=== PATIENT | female | born 1965 | race Caucasian/White ===

== ENCOUNTER → 2017-09-03 | Outpatient (CLI) | payer OTHER ==
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
--- NOTE | 2017-09-05 07:01 | MM ---
Reason for exam: screening (asymptomatic). Last mammogram was performed 1 year and 1 month ago. History: Family history of breast cancer in maternal grandmother and breast cancer in maternal aunt. Physical Findings: A clinical breast exam by your physician is recommended on an annual basis and results should be correlated with mammographic findings. MG 3D Screening Mammo W/Cad Bilateral CC and MLO view(s) were taken. Prior study comparison: August 07, 2016, bilateral MG 3d screening mammo w/cad. May 21, 2015, bilateral foundation screening mammo. The breast tissue is heterogeneously dense. This may lower the sensitivity of mammography. No suspicious abnormality. No significant changes when compared with prior studies. ASSESSMENT: Negative, BI-RAD 1 RECOMMENDATION: Routine screening mammogram of both breasts in 1 year.
== END | disposition home or self-care (01) ==
LOC: RADMAMWWP 13:29
PROVIDERS: ATTEND Family Medicine
DX: Z12.31 Encounter for screening mammogram for malignant neoplasm of breast (principal); Z13.820 Encounter for screening for osteoporosis
CPT/HCPCS: 77063; 77067; 77080

== ENCOUNTER → 2019-02-18 | Outpatient (CLI) | payer OTHER ==
--- NOTE | 2019-02-18 21:42 | CONS ---
CONSULTATION REASON FOR CONSULTATION: Sleep apnea. This is a 53-year-old female patient coming in for sleep apnea evaluation. This patient has been diagnosed having fibromyalgia, and the patient has been treated for that for almost a year. She is on a combination of gabapentin and Cymbalta. She also takes a combination of tramadol and baclofen. She tries to take baclofen at nighttime in addition to the tramadol. As for the gabapentin, she takes it 3 times a day. She has acid reflux. Over the past year or so the patient has been having also sleep fragmentation and frequent nocturnal arousals, chronic hypersomnia and tiredness. She goes to bed around 9 p.m., wakes up at 6 a.m. in the morning. Her sleep is fragmented. Her current [place] score is 5. Her weight is stable. She has been told also that she snores. As such, this raised the suspicion for obstructive sleep apnea. Note that the patient is extremely claustrophobic; treatment of sleep apnea may be complicated by this problem if the diagnosis is made. PAST MEDICAL HISTORY: 1. Fibromyalgia. 2. Acid reflux. PAST SURGICAL HISTORY: Past surgical history includes: 1. Cholecystectomy. 2. Right hand and forearm surgery following an injury. DRUG ALLERGIES: 1. CODEINE. That causes a rash. 2. PENICILLINS. OUTPATIENT MEDICATION: Outpatient medication includes: 1. Gabapentin 300 mg 3 times a day. 2. Omeprazole 20 mg p.o. daily. 3. Cymbalta 60 mg p.o. daily. 4. Tramadol 50 mg twice a day. 5. Baclofen 10 mg t.i.d. SOCIAL HISTORY: The patient is a nonsmoker. No history of alcoholism. No history of IV drugs. Her brother has obstructive sleep apnea. REVIEW OF SYSTEMS: Fourteen-point review of systems was done. Positive findings are all mentioned above in the history of present illness. She has occasional grinding of the teeth. She is extremely claustrophobic and she has anxiety and panic attacks. She is also restless in her lower extremities. She also occasionally jerks and kicks. No typical symptoms of RLS syndrome. She is anxious. She is irritable. She has problems with concentration and memory. She has no recent weight gain. No sleep paralysis. No hallucinations. No cataplexy at this point in time. PHYSICAL EXAMINATION: VITAL SIGNS: BP is 148/84, pulse 82, respirations 16, temperature 98.1, saturation 98% on room air. Height is 5 feet 5 inches, weight 206, BMI 34.2. Neck size 15 inches. [place] score is 5. GENERAL APPEARANCE: Calm, comfortable. HEAD: Atraumatic, normocephalic. NECK: Supple. No JVD. No goiter or neck masses. LUNGS: Diminished; otherwise clear. HEART: Heart sounds are regular rate and rhythm. Normal S1, S2. No S3, S4. No murmurs. ABDOMEN: Soft. No organomegaly. EXTREMITIES: No edema. No cyanosis or clubbing. SKIN: No evidence of any wounds or ulcerations. IMPRESSION: 1. Chronic hypersomnia, under investigation. Obviously the patient has issues with chronic fibromyalgia, and she is on a combination of medication to improve her pain and sleep quality. Consider underlying obstructive sleep apnea. For that reason, a polysomnogram will be ordered. 2. Fibromyalgia. 3. Acid reflux. PLAN: 1. Proceed with polysomnogram. 2. Continue the same medications for now. 3. Encourage weight loss. 4. Will continue to follow and make further recommendations based on the PSG findings. MMODL / IJN: [id number] /
== END | disposition home or self-care (01) ==
LOC: SLEEP 16:01
PROVIDERS: ATTEND Internal Medicine Critical Care Medicine
DX: G47.10 Hypersomnia, unspecified (principal); M79.7 Fibromyalgia; K21.9 Gastro-esophageal reflux disease without esophagitis; Z88.0 Allergy status to penicillin; Z88.5 Allergy status to narcotic agent; Z79.891 Long term (current) use of opiate analgesic; Z79.899 Other long term (current) drug therapy
CPT/HCPCS: 99211

== ENCOUNTER → 2021-03-04 | Outpatient (CLI) | payer OTHER ==
--- NOTE | 2021-03-08 08:24 | MM ---
Reason for exam: screening (asymptomatic). Last mammogram was performed 3 years and 6 months ago. History: Family history of breast cancer in maternal grandmother and breast cancer in maternal aunt. Physical Findings: A clinical breast exam by your physician is recommended on an annual basis and results should be correlated with mammographic findings. MG Screening Mammo w CAD Bilateral CC and MLO view(s) were taken. Prior study comparison: September 03, 2017, bilateral MG 3d screening mammo w/cad. August 07, 2016, bilateral MG 3d screening mammo w/cad. The breast tissue is heterogeneously dense. This may lower the sensitivity of mammography. ASSESSMENT: Negative, BI-RAD 1 RECOMMENDATION: Routine screening mammogram of both breasts in 1 year.
== END | disposition home or self-care (01) ==
LOC: RADMAMWWP 15:57
PROVIDERS: ATTEND Family Medicine
DX: Z12.31 Encounter for screening mammogram for malignant neoplasm of breast (principal); Z80.3 Family history of malignant neoplasm of breast
CPT/HCPCS: 77067

== ENCOUNTER 2021-05-24 17:39 | Inpatient (IN) | payer OTHER ==
--- NOTE | 2021-05-24 18:25 | ED ---
SOB HPI - General Chief Complaint: Shortness of Breath Stated Complaint: Covid+, SOB Time Seen by Provider: 05/24/21 17:55 Source: patient, EMS Mode of arrival: EMS Limitations: no limitations - History of Present Illness Initial Comments: 55-year-old female past medical history of asthma who presents to the emergency department with reported shortness of breath, nausea and vomiting. Patient began having symptoms on Sunday. She states that she went to Dr. Antony's office and was tested for Covid. She was found to be positive. He did place her on a Medrol dose pack and antibiotics for her sinus infection. Over the course of the week she has had worsening shortness of breath, nausea and vomiting. Does have a history of asthma however states that it is mild and intermittent. She does not follow the credit historian. Symptoms became so severe today that she called and EMS. When they arrived they found the patient to have oxygen saturation of 81%. She does arrive on 6 L. She denies chest pain. No lower extremity swelling. No fevers. Patient is not vaccinated. No other alleviating, precipitating or modifying factors - Related Data Home Medications Medication Instructions Recorded Confirmed Ascorbic Acid [Vitamin C] 1,000 mg PO DAILY 05/24/21 05/24/21 Baclofen 10 mg PO TID 05/24/21 05/24/21 Butalbital/Aspirin/Caffeine 1 - 2 cap PO Q6H PRN 05/24/21 05/24/21 [Ezsmrcuioc-KKV-Hpukesry Cap 50-325-40] Cholecalciferol [Vitamin D3 (25 25 mcg PO DAILY 05/24/21 05/24/21 Mcg = 1000 Iu)] DULoxetine HCL [Cymbalta] 60 mg PO DAILY 05/24/21 05/24/21 Fluticasone Nasal [place] [Flonase 1 spray EA NOSTRIL DAILY PRN 05/24/21 05/24/21 Nasal [place]] Gabapentin [Neurontin] 300 mg PO TID 05/24/21 05/24/21 Magnesium 250 mg PO DAILY 05/24/21 05/24/21 Mometasone/Formoterol [Dulera 100 2 puff PO RT-DAILY 05/24/21 05/24/21 Mcg-5 Mcg Inhaler] Norethindrone [Marielena] 0.35 mg PO DAILY 05/24/21 05/24/21 Omeprazole 40 mg PO DAILY 05/24/21 05/24/21 Ondansetron [Zofran] 4 mg PO TID PRN 05/24/21 05/24/21 Zinc 50 mg PO DAILY 05/24/21 05/24/21 Zolpidem Tartrate [Ambien] 10 mg PO HS PRN 05/24/21 05/24/21 rOPINIRole HCL [Requip] 1 mg PO BID 05/24/21 05/24/21 traMADol HCL 100 mg PO BID PRN 05/24/21 05/24/21 Allergies Allergy/AdvReac Type Severity Reaction Status Date / Time codeine AdvReac Rash/Hives Verified 05/24/21 18:44 Penicillins AdvReac Rash/Hives Verified 05/24/21 18:44 Review of Systems ROS Statement: Those systems with pertinent positive or pertinent negative responses have been documented in the HPI. ROS Other: All systems not noted in ROS Statement are negative. Past Medical History Past Medical History: Asthma Additional Past Medical History / Comment(s): COVID 2020 History of Any Multi-Drug Resistant Organisms: None Reported Past Surgical History: Cholecystectomy Past Psychological History: No Psychological Hx Reported Smoking Status: Never smoker Past Alcohol Use History: None Reported Past Drug Use History: None Reported General Exam Limitations: no limitations General appearance: alert, in distress Head exam: Present: atraumatic, normocephalic, normal inspection Eye exam: Present: normal appearance, PERRL, EOMI. Absent: scleral icterus, conjunctival injection, periorbital swelling ENT exam: Present: normal exam, mucous membranes moist Neck exam: Present: normal inspection. Absent: tenderness, meningismus, lymphadenopathy Respiratory exam: Present: respiratory distress, accessory muscle use, decreased breath sounds. Absent: wheezes, rales, rhonchi, stridor Cardiovascular Exam: Present: normal rhythm, tachycardia, normal heart sounds. Absent: systolic murmur, diastolic murmur, rubs, gallop, clicks GI/Abdominal exam: Present: soft, normal bowel sounds. Absent: distended, tenderness, guarding, rebound, rigid Extremities exam: Present: normal inspection, full ROM, normal capillary refill. Absent: tenderness, pedal edema, joint swelling, calf tenderness Back exam: Present: normal inspection Neurological exam: Present: alert, oriented X3, CN II-XII intact Psychiatric exam: Present: normal affect, normal mood Skin exam: Present: warm, dry, intact, normal color. Absent: rash Course Vital Signs 05/24/21 05/24/21 05/24/21 17:52 17:55 17:56 Temperature 97.9 F Pulse Rate 112 H Respiratory 26 H 26 H Rate Blood Pressure 134/96 O2 Sat by Pulse 81 L 93 L Oximetry 05/24/21 05/24/21 05/24/21 19:02 19:33 20:21 Temperature Pulse Rate 112 H 108 H 118 H Respiratory 26 H 22 28 H Rate Blood Pressure 129/92 143/90 145/92 O2 Sat by Pulse 93 L 95 91 L Oximetry 05/24/21 05/24/21 05/24/21 20:44 22:00 22:55 Temperature Pulse Rate 111 H Respiratory 20 Rate Blood Pressure O2 Sat by Pulse 98 93 L 94 L Oximetry 05/25/21 05/25/21 05/25/21 01:00 06:00 07:55 Temperature 97.4 F L Pulse Rate 99 93 105 H Respiratory 22 22 22 Rate Blood Pressure 114/81 133/82 151/97 O2 Sat by Pulse 94 L 95 95 Oximetry 05/25/21 05/25/21 05/25/21 07:58 08:00 09:03 Temperature Pulse Rate 99 127 H Respiratory 22 24 Rate Blood Pressure 159/98 O2 Sat by Pulse 92 L 95 95 Oximetry 05/25/21 05/25/21 05/25/21 09:44 10:00 11:00 Temperature Pulse Rate 137 H 128 H 115 H Respiratory 26 H 24 24 Rate Blood Pressure O2 Sat by Pulse 91 L 98 95 Oximetry 05/25/21 05/25/21 05/25/21 12:00 13:19 14:00 Temperature Pulse Rate 122 H 121 H 110 H Respiratory 24 26 H 24 Rate Blood Pressure 134/93 141/92 143/103 O2 Sat by Pulse 95 94 L 95 Oximetry 05/25/21 05/25/21 05/25/21 15:00 16:00 17:00 Temperature 97.6 F Pulse Rate 112 H 121 H 118 H Respiratory 26 H 24 24 Rate Blood Pressure 154/104 137/101 144/101 O2 Sat by Pulse 96 95 95 Oximetry 10/06/21 10/06/21 18:00 19:00 Temperature Pulse Rate 111 H 111 H Respiratory 24 24 Rate Blood Pressure 146/99 O2 Sat by Pulse 98 98 Oximetry Medical Decision Making - Medical Decision Making Upon arrival patient is placed into trauma 4. Thorough history and physical exam was performed. Patient is originally on 6 L of oxygen. We will attempt to titrate the patient's oxygen down to 4 L however she does desat into the 80s. IV is established. Laboratory studies are conducted. D-dimer 0.84. LDH 2163. Chest x-ray demonstrates low lung volumes with diffuse reticular patchy opacities. Chest CT is performed which demonstrates no central lobar segmental pulmonary embolus. The patient is given a dose of Decadron and remdesmivir. Recommended admission due to her hypoxia. Patient agreed to this. Spoke with Eric from [facility] who agree to admit the patient. She currently awaiting a bed on the floor - Lab Data Result diagrams: 05/27/21 04:33 05/27/21 04:33 Lab Results 05/24/21 Range/Units 19:17 D-Dimer 0.84 H (<0.60) mg/L FEU - EKG Data EKG Comments: EKG demonstrates sinus tachycardia with a ventricular rate of 110. A 122. QRS 82. QTC 449. No acute ST segment elevations or depressions Disposition Clinical Impression: Hypoxia, COVID-19 Disposition: ADMITTED IP TO THIS HOSP Condition: Stable Is patient prescribed a controlled substance at d/c from ED?: No Decision to Admit Reason: Admit from EC Decision Date: 05/24/21 Decision Time: 20:26
[2021-05-24 18:43] LABS: Basophils # (A) 0.1 k/uL (0-0.2); Basophils % (A) 1 %; Eosinophils % (A) 0 %; HCT 44.9 % (34.0-46.0); Lymphocytes # (A) 0.8 k/uL (1.0-4.8); Lymphocytes % (A) 13 %; MCH 29.4 pg (25.0-35.0); MCHC 33.4 g/dL (31.0-37.0); MCV 88.1 fL (80.0-100.0); Mean Platelet Volume 7.5; Monocytes # (A) 0.2 k/uL (0-1.0); Monocytes % (A) 3 %; Neutrophils % (A) 81 %; Platelet Count 407 k/uL (150-450); RDW 13.7 % (11.5-15.5); WBC 6.2 k/uL (3.8-10.6)
[2021-05-24 18:51] LABS: INR 0.9 (<1.2); Partial Thromboplastin Time 24.7 sec (22.0-30.0)
--- NOTE | 2021-05-24 18:54 | XR ---
EXAMINATION TYPE: XR chest 1V portable DATE OF EXAM: 05/24/2021 COMPARISON: NONE HISTORY: Shortness of breath TECHNIQUE: Single frontal view of the chest is obtained. FINDINGS: The cardiomediastinal silhouette and pulmonary vasculature is within normal limits. Low lung volumes with diffuse, reticular and patchy opacity bilaterally. IMPRESSION: Low lung volumes with diffuse, reticular and patchy opacity bilaterally.
[2021-05-24 18:56] LABS: ALT 159 U/L (4-34); AST 174 U/L (14-36); African American GFR (CKD) >90 (>60 ml/min/1.73 sqM); Albumin 3.3 g/dL (3.5-5.0); Alkaline Phosphatase 229 U/L (38-126); Anion Gap 9 mmol/L; Blood Urea Nitrogen 13 mg/dL (7-17); Carbon Dioxide 27 mmol/L (22-30); Chloride 98 mmol/L (98-107); Glucose 120 mg/dL (74-99); Non-African American GFR(CKD) >90 (>60 ml/min/1.73 sqM); Potassium 4.7 mmol/L (3.5-5.1); Sodium 134 mmol/L (137-145); Total Bilirubin 0.8 mg/dL (0.2-1.3); Total Protein 6.7 g/dL (6.3-8.2)
[2021-05-24 19:08] LABS: C Reactive Protein 13.9 mg/dL (<1.0); LDH 2163 U/L (313-618)
[2021-05-24] MEDS: DEXAMETHASONE SOD PHOSPHATE 10 MG/ML 1 ML VIAL IV SCH (20:13)
[2021-05-24] MEDS ORDERED: ACETAMINOPHEN TAB 325 MG TAB PO PRN (20:27)
[2021-05-24] MEDS ORDERED: NALOXONE 0.4 MG/ML 1 ML VIAL IV PRN (20:27)
[2021-05-24] MEDS ORDERED: REMDESIVIR 200 MG in SODIUM CHLORIDE 0.9% 250 ML IVPB ONE (21:00)
[2021-05-24] MEDS ORDERED: ONDANSETRON 4 MG/2 ML VIAL IVP STA (21:12)
--- NOTE | 2021-05-24 21:45 | CT ---
EXAMINATION TYPE: CT chest angio for PE DATE OF EXAM: 05/24/2021 COMPARISON: Radiograph 05/24/2021 HISTORY: SOB, + covid CT DLP: 465.5 mGycm Automated exposure control for dose reduction was used. CONTRAST: CT Chest for pulmonary embolism performed with with IV Contrast, patient injected with 80cc mL of Iso kelly 370. FINDINGS: LUNGS: There is diffuse groundglass reticular opacity throughout the lungs that appears consolidative dependently. No large effusion or pneumothorax. The central airways are patent. MEDIASTINUM: There is satisfactory enhancement of the pulmonary artery and its proximal branches, the re is no CT evidence for pulmonary embolism. The subsegmental vessels are suboptimally evaluated due to artifact. There are no greater than 1 cm hilar or mediastinal lymph nodes. No pericardial effus ion is seen. There is a moderate hiatal hernia. OTHER: Hypoattenuating liver suggesting steatosis. IMPRESSION: 1. No Central, lobar or segmental pulmonary embolus. Limited assessment of the subsegmental vessels due to artifact. 2. Diffuse bilateral airspace disease. No pneumothorax or effusion.
[2021-05-24] MEDS ORDERED: FLUTICASONE 50MCG/SPRAY NASAL 16GM EA NOSTRIL PRN (22:42)
[2021-05-25 06:45] LABS: ALT 183 U/L (4-34); AST 186 U/L (14-36); African American GFR (CKD) >90 (>60 ml/min/1.73 sqM); Albumin 3.6 g/dL (3.5-5.0); Albumin/Globulin Ratio 0.9; Alkaline Phosphatase 263 U/L (38-126); Anion Gap 15 mmol/L; Blood Urea Nitrogen 15 mg/dL (7-17); Calcium 9.5 mg/dL (8.4-10.2); Carbon Dioxide 19 mmol/L (22-30); Chloride 102 mmol/L (98-107); Globulin 3.8 g/dL; Glucose 161 mg/dL (74-99); Non-African American GFR(CKD) >90 (>60 ml/min/1.73 sqM); Potassium 5.3 mmol/L (3.5-5.1); Sodium 136 mmol/L (137-145); Total Protein 7.4 g/dL (6.3-8.2)
[2021-05-25] MEDS: traMADol 50 MG TAB PO PRN ×2 (07:07→22:45)
[2021-05-25] MEDS: NON FORMULARY DRUG (Norethindrone [Camila] 0.35 MG Tablet) PO SCH (07:52)
[2021-05-25] MEDS: SYMBICORT 80-4.5 MCG INHALER INHALATION SCH ×2 (07:58→20:00)
[2021-05-25] MEDS: MAGNESIUM OXIDE 400 MG TAB PO SCH (08:08)
[2021-05-25] MEDS: BACLOFEN 10 MG TAB PO SCH ×3 (08:08→21:01)
[2021-05-25] MEDS: PANTOPRAZOLE 40 MG TABLET PO SCH (08:08)
[2021-05-25] MEDS: ZINC SULFATE 220 MG CAP PO SCH (08:08)
[2021-05-25] MEDS: CHOLECALCIFEROL 25 MCG (1000 IU) TABLET PO SCH (08:08)
[2021-05-25] MEDS: DULoxetine HCL 60 MG CAPSULE.DR PO SCH (08:09)
[2021-05-25] MEDS: ASCORBIC ACID 500 MG TAB PO SCH (08:09)
[2021-05-25] MEDS: GABAPENTIN 300 MG CAP PO SCH ×3 (08:09→21:01)
[2021-05-25] MEDS: DEXAMETHASONE SOD PHOSPHATE 10 MG/ML 1 ML VIAL IV SCH (08:09)
[2021-05-25] MEDS: BARICITINIB 2 MG TABLET PO SCH (10:24)
[2021-05-25 10:53] LABS: Basophils # (M) 0 X 10*3/uL (0.00-0.10); Eosinophils # (M) 0 X 10*3/uL (0.04-0.35); HGB 16.2 g/dL (12.0-15.0); Lymphocytes # (M) 0.25 X 10*3/uL (0.90-5.00); MCH 29.1 pg (27.0-32.0); MCHC 33.1 g/dL (32.0-37.0); MCV 88.1 fL (80.0-97.0); Mean Platelet Volume 9.9 fL (9.5-12.2); Metamyelocytes % 4 % (0-0); Myelocytes % 4 % (0-0); Neutrophils # (M) 4.08 X 10*3/uL (2.00-8.90); Neutrophils % (M) 83 %; Platelet Count 464 X 10*3/uL (140-440); RBC 5.56 X 10*6/uL (4.10-5.20); RDW 13.8 % (11.5-14.5); WBC 4.91 X 10*3/uL (4.50-10.00)
[2021-05-25 11:02] LABS: ABG Base Excess 0.9 mmol/L; ABG HCO3 24 mmol/L (21-25); ABG Oxygen Saturation 99.2 % (94-97); ABG PCO2 28 mmHg (35-45); ABG PH 7.54 (7.35-7.45); ABG PO2 135 mmHg (83-108); ABG TCO2 24 mmol/L (19-24)
--- NOTE | 2021-05-25 11:15 | P.CNPUL ---
History of Present Illness Consult date: 05/25/21 Requesting physician: Bushra Hdez Reason for consult: dyspnea, hypoxemia, abnormal CXR/CT Chief complaint: Shortness of breath History of present illness: This is a 55-year-old female patient with a history of fibromyalgia, gastroesophageal reflux disease, chronic bronchial asthma. She follows with Dr. Antony as her primary care provider. On 05/16/2021 she developed symptoms of increasing shortness of breath, cough congestion, vomiting. She was seen by her PCP and tested positive for COVID-19. She was initiated on a Medrol Dosepak and antibiotics for complaints of possible sinus infection as well. Her symptoms progressed she became more short of breath. She came in by EMS to the emergency room yesterday. Her initial O2 saturation was 81%. She was placed on 6 L of oxygen at that time. Chest x-ray showed low lung volumes with diffuse reticular and patchy opacities bilaterally. CAT scan revealed diffuse bilateral airspace disease. No pneumothorax or effusions. No evidence of pulmonary embolism. White count 4.9. Hemoglobin 16.2. Platelets 464. Lymphocytes 0.25. D-dimer 0.84. Sodium 136. Potassium 5.3. Bicarb 19. Creatinine 0.61. AST 186. ALT 183. LDH 2163. C-reactive protein 13.9. She is seen today in consultation in the emergency room. Her symptoms have progressed. She is now requiring BiPAP support 14/6 and 100% FiO2. She is tachycardic 120s-130s. Respiratory rate 26. Currently afebrile. Review of Systems REVIEW OF SYSTEMS: CONSTITUTIONAL: Denies any recent significant weight loss or weight gain. EYES: Denies change in vision. EARS, NOSE, MOUTH, THROAT: Denies headaches, denies sore throat. CARDIOVASCULAR: Denies chest pain, palpitations or syncopal episodes. RESPIRATORY: Positive for shortness of breath, cough, congestion no hemoptysis. GASTROINTESTINAL: Positive for vomiting GENITOURINARY: Denies hematuria, denies infections. MUSKULOSKELETAL: Denies pain, denies swelling. INTEGUMENTARY: Denies rash, denies eczema. NEUROLOGICAL: Denies recent memory loss, no recent seizure activity. PSYCHIATRIC: Denies anxiety, denies depression. HEMATOLOGIC/LYMPHATIC: Denies anemia, denies enlarged lymph nodes. Past Medical History Past Medical History: Asthma Additional Past Medical History / Comment(s): COVID 2020 History of Any Multi-Drug Resistant Organisms: None Reported Past Surgical History: Cholecystectomy Past Psychological History: No Psychological Hx Reported Smoking Status: Never smoker Past Alcohol Use History: None Reported Past Drug Use History: None Reported Medications and Allergies Home Medications Medication Instructions Recorded Confirmed Type Ascorbic Acid [Vitamin C] 1,000 mg PO DAILY 05/24/21 05/24/21 History Baclofen 10 mg PO TID 05/24/21 05/24/21 History Butalbital/Aspirin/Caffeine 1 - 2 cap PO Q6H PRN 05/24/21 05/24/21 History [Nvdtdrsyvf-ALG-Nzxqetit Cap 50-325-40] Cholecalciferol [Vitamin D3 (25 25 mcg PO DAILY 05/24/21 05/24/21 History Mcg = 1000 Iu)] DULoxetine HCL [Cymbalta] 60 mg PO DAILY 05/24/21 05/24/21 History Fluticasone Nasal [place] [Flonase 1 spray EA NOSTRIL DAILY PRN 05/24/21 05/24/21 History Nasal [place]] Gabapentin [Neurontin] 300 mg PO TID 05/24/21 05/24/21 History Magnesium 250 mg PO DAILY 05/24/21 05/24/21 History Mometasone/Formoterol [Dulera 100 2 puff PO RT-DAILY 05/24/21 05/24/21 History Mcg-5 Mcg Inhaler] Norethindrone [Marielena] 0.35 mg PO DAILY 05/24/21 05/24/21 History Omeprazole 40 mg PO DAILY 05/24/21 05/24/21 History Ondansetron [Zofran] 4 mg PO TID PRN 05/24/21 05/24/21 History Zinc 50 mg PO DAILY 05/24/21 05/24/21 History Zolpidem Tartrate [Ambien] 10 mg PO HS PRN 05/24/21 05/24/21 History rOPINIRole HCL [Requip] 1 mg PO BID 05/24/21 05/24/21 History traMADol HCL 100 mg PO BID PRN 05/24/21 05/24/21 History Allergies Allergy/AdvReac Type Severity Reaction Status Date / Time codeine AdvReac Rash/Hives Verified 05/24/21 18:44 Penicillins AdvReac Rash/Hives Verified 05/24/21 18:44 Physical Exam Vitals: Vital Signs Temp Pulse Resp BP Pulse Ox 05/25/21 09:44 137 H 26 H 91 L 05/25/21 09:03 127 H 24 159/98 95 05/25/21 08:00 99 22 95 05/25/21 07:58 92 L 05/25/21 07:55 105 H 22 151/97 95 05/25/21 06:00 93 22 133/82 95 05/25/21 01:00 97.4 F L 99 22 114/81 94 L 05/24/21 22:55 94 L 05/24/21 22:00 111 H 20 93 L 05/24/21 20:44 98 05/24/21 20:21 118 H 28 H 145/92 91 L 05/24/21 19:33 108 H 22 143/90 95 05/24/21 19:02 112 H 26 H 129/92 93 L 05/24/21 17:56 93 L 05/24/21 17:55 26 H 05/24/21 17:52 97.9 F 112 H 26 H 134/96 81 L Intake and Output 05/24/21 05/25/21 05/25/21 22:59 06:59 14:59 Other: Weight 92.986 kg GENERAL EXAM: Alert, anxious 55-year-old female, on BiPAP 14/6 at 100% FiO2, and mild respiratory distress. HEAD: Normocephalic. EYES: Normal reaction of pupils, equal size. NOSE: Clear with pink turbinates. THROAT: No erythema or exudates. NECK: No masses, no JVD. CHEST: No chest wall deformity. LUNGS: Equal air entry with coarse crackles in the bilateral bases. CVS: S1 and S2 normal with no audible murmur, regular rhythm. ABDOMEN: No hepatosplenomegaly, normal bowel sounds, no guarding or rigidity. SPINE: No scoliosis or deformity SKIN: No rashes CENTRAL NERVOUS SYSTEM: No focal deficits, tone is normal in all 4 extremities. EXTREMITIES: There is no peripheral edema. No clubbing, no cyanosis. Peripheral pulses are intact. Results - Laboratory Findings CBC and BMP: 05/25/21 04:56 05/25/21 05:01 PT/INR, D-dimer PT 10.0 sec (9.0-12.0) 05/24/21 Unknown INR 0.9 (<1.2) 05/24/21 Unknown D-Dimer 0.84 mg/L FEU (<0.60) H 05/24/21 19:17 Abnormal lab findings: Abnormal Labs 05/24/21 05/24/21 05/24/21 19:17 Unknown Unknown RBC Hgb Hct Plt Count Plt Count Comment Metamyelocytes % Myelocytes % Lymphocytes # 0.8 L Lymphocytes # (Manual) Eosinophils # (Manual) D-Dimer 0.84 H Sodium 134 L Potassium Carbon Dioxide Glucose 120 H AST 174 H ALT 159 H Alkaline Phosphatase 229 H Lactate Dehydrogenase 2163 H C-Reactive Protein 13.9 H Albumin 3.3 L 05/25/21 05/25/21 04:56 05:01 RBC 5.56 H Hgb 16.2 H Hct 49.0 H Plt Count 464 H Plt Count Comment INCREASED A Metamyelocytes % 4 H Myelocytes % 4 H Lymphocytes # Lymphocytes # (Manual) 0.25 L Eosinophils # (Manual) 0 L D-Dimer Sodium 136 L Potassium 5.3 H Carbon Dioxide 19 L Glucose 161 H AST 186 H ALT 183 H Alkaline Phosphatase 263 H Lactate Dehydrogenase C-Reactive Protein Albumin - Diagnostic Findings Chest x-ray: image reviewed CT scan - chest: image reviewed Assessment and Plan Assessment: 1 Acute COVID-19 pneumonia. Unvaccinated. Given 1 dose of Remdesivir 05/24/2021 in the emergency room. 2 Acute hypoxemic respiratory failure secondary to above. Currently on BiPAP 14/6 and 100% FiO2. DC Remdesivir. Initiate Baricitinib. 3 Elevated inflammatory markers secondary to above 4 Mild transaminitis secondary to above 5 Fibromyalgia 6 Obesity 7 History of asthma 8 Gastroesophageal reflux disease Plan: The patient was seen and evaluated by Dr. Reagan Chest x-ray, CAT scans and labs reviewed On BiPAP 14/6 and 100 percent FiO2 Obtain ABGs, titrate the FiO2 as tolerated Change admission from regular medical floor to the intensive care unit Initiate Baricitinib, Decadron, Lovenox, vitamin supplements Request PICC line placement We will continue to follow and make further recommendations based on her clinical status I, the cosigning physician, performed a history & physical examination of the patient. Lungs sounds with coarse crackles in the bilateral bases. Maintaining good O2 saturations in the 90s on BiPAP 14/6 and 100%. I discussed the assessment and plan of care with my nurse practitioner, Emmy Chamberlain. I attest to the above consultation as dictated by her. Time with Patient: Greater than 30
--- NOTE | 2021-05-25 13:03 | P.HPIM ---
History of Present Illness Patient is a pleasant 60-year-old female came in with compensative shortness of breath be started about 10 days ago along with cough congestion and vomiting. Patient assessed is positive for COVID-19. Patient did not receive covid 19 patient is tachypneic on BiPAP at this time. Patient the d-dimer is around 0.84. Potassium is 5.3. Patient chest x-ray showing diffuse infiltrate computed tomography scan revealed diffuse bilateral air space disease. Patient is tachycardic with heart rate in 120s 130s. Denied any smoking history. Patient does have elevated liver enzymes. REVIEW OF SYSTEMS: CONSTITUTIONAL: As mentioned in HPI HEENT: No recent visual problems or hearing problems. Denied any sore throat. CARDIOVASCULAR: No chest pain, orthopnea, PND, no palpitations, no syncope. PULMONARY: No shortness of breath, no cough, no hemoptysis. GASTROINTESTINAL: No diarrhea, no nausea, no vomiting, no abdominal pain. NEUROLOGICAL: No headaches, no weakness, no numbness. HEMATOLOGICAL: Denies any bleeding or petechiae. GENITOURINARY: Denies any burning micturition, frequency, or urgency. MUSCULOSKELETAL/RHEUMATOLOGICAL: Denies any joint pain, swelling, or any muscle pain. ENDOCRINE: Denies any polyuria or polydipsia. The rest of the 14-point review of systems is negative. PHYSICAL EXAMINATION: GENERAL: The patient is alert and oriented x3, patient in significant respiratory distress. Well developed, well nourished. On BiPAP HEENT: Pupils are round and equally reacting to light. EOMI. No scleral icterus. No conjunctival pallor. Normocephalic, atraumatic. No pharyngeal erythema. No thyromegaly. CARDIOVASCULAR: S1 and S2 present. No murmurs, rubs, or gallops. PULMONARY: Chest is clear to auscultation, no wheezing or crackles. ABDOMEN: Soft, nontender, nondistended, normoactive bowel sounds. No palpable organomegaly. MUSCULOSKELETAL: No joint swelling or deformity. EXTREMITIES: No cyanosis, clubbing, or pedal edema. NEUROLOGICAL: Gross neurological examination did not reveal any focal deficits. SKIN: No rashes. Assessment and plan Acute hypoxic respiratory failure secondary to severe Covid 19 pneumonia. Patient received 1 dose of Remdesivir. Patient is being started on Barcitinib -Severe sepsis secondary to Covid 19 pneumonia with highly elevated inflammatory markers PE was ruled out -Transaminitis secondary to sepsis -Fibromyalgia -Obesity -Gastroesophageal reflux disease DVT prophylaxis: Patient is on Lovenox which will be continued Past Medical History Past Medical History: Asthma Additional Past Medical History / Comment(s): COVID 2020 History of Any Multi-Drug Resistant Organisms: None Reported Past Surgical History: Cholecystectomy Past Psychological History: No Psychological Hx Reported Smoking Status: Never smoker Past Alcohol Use History: None Reported Past Drug Use History: None Reported Medications and Allergies Home Medications Medication Instructions Recorded Confirmed Type Ascorbic Acid [Vitamin C] 1,000 mg PO DAILY 05/24/21 05/24/21 History Baclofen 10 mg PO TID 05/24/21 05/24/21 History Butalbital/Aspirin/Caffeine 1 - 2 cap PO Q6H PRN 05/24/21 05/24/21 History [[id number] Cap 50-325-40] Cholecalciferol [Vitamin D3 (25 25 mcg PO DAILY 05/24/21 05/24/21 History Mcg = 1000 Iu)] DULoxetine HCL [Cymbalta] 60 mg PO DAILY 05/24/21 05/24/21 History Fluticasone Nasal [place] [Flonase 1 spray EA NOSTRIL DAILY PRN 05/24/21 05/24/21 History Nasal [place]] Gabapentin [Neurontin] 300 mg PO TID 05/24/21 05/24/21 History Magnesium 250 mg PO DAILY 05/24/21 05/24/21 History Mometasone/Formoterol [Dulera 100 2 puff PO RT-DAILY 05/24/21 05/24/21 History Mcg-5 Mcg Inhaler] Norethindrone [Marielena] 0.35 mg PO DAILY 05/24/21 05/24/21 History Omeprazole 40 mg PO DAILY 05/24/21 05/24/21 History Ondansetron [Zofran] 4 mg PO TID PRN 05/24/21 05/24/21 History Zinc 50 mg PO DAILY 05/24/21 05/24/21 History Zolpidem Tartrate [Ambien] 10 mg PO HS PRN 05/24/21 05/24/21 History rOPINIRole HCL [Requip] 1 mg PO BID 05/24/21 05/24/21 History traMADol HCL 100 mg PO BID PRN 05/24/21 05/24/21 History Allergies Allergy/AdvReac Type Severity Reaction Status Date / Time codeine AdvReac Rash/Hives Verified 05/24/21 18:44 Penicillins AdvReac Rash/Hives Verified 05/24/21 18:44 Physical Exam Vitals: Vital Signs Temp Pulse Resp BP Pulse Ox 05/25/21 12:00 122 H 24 134/93 95 05/25/21 11:00 115 H 24 95 05/25/21 10:00 128 H 24 98 05/25/21 09:44 137 H 26 H 91 L 05/25/21 09:03 127 H 24 159/98 95 05/25/21 08:00 99 22 95 05/25/21 07:58 92 L 05/25/21 07:55 105 H 22 151/97 95 05/25/21 06:00 93 22 133/82 95 05/25/21 01:00 97.4 F L 99 22 114/81 94 L 05/24/21 22:55 94 L 05/24/21 22:00 111 H 20 93 L 05/24/21 20:44 98 05/24/21 20:21 118 H 28 H 145/92 91 L 05/24/21 19:33 108 H 22 143/90 95 05/24/21 19:02 112 H 26 H 129/92 93 L 05/24/21 17:56 93 L 05/24/21 17:55 26 H 05/24/21 17:52 97.9 F 112 H 26 H 134/96 81 L Intake and Output 05/24/21 05/25/21 05/25/21 22:59 06:59 14:59 Other: Weight 92.986 kg Results CBC & Chem 7: 05/25/21 04:56 05/25/21 05:01 Labs: Abnormal Lab Results - Last 24 Hours (Table) 05/24/21 05/24/21 05/24/21 Range/Units 19:17 Unknown Unknown RBC (4.10-5.20) X 10*6/uL Hgb (12.0-15.0) g/dL Hct (37.2-46.3) % Plt Count (140-440) X 10*3/uL Plt Count Comment Metamyelocytes % (0-0) % Myelocytes % (0-0) % Lymphocytes # 0.8 L (1.0-4.8) k/uL Lymphocytes # (Manual) (0.90-5.00) X 10*3/uL Eosinophils # (Manual) (0.04-0.35) X 10*3/uL D-Dimer 0.84 H (<0.60) mg/L FEU ABG pH (7.35-7.45) ABG pCO2 (35-45) mmHg ABG pO2 (83-108) mmHg ABG O2 Saturation (94-97) % Sodium 134 L (137-145) mmol/L Potassium (3.5-5.1) mmol/L Carbon Dioxide (22-30) mmol/L Glucose 120 H (74-99) mg/dL AST 174 H (14-36) U/L ALT 159 H (4-34) U/L Alkaline Phosphatase 229 H (38-126) U/L Lactate Dehydrogenase 2163 H (313-618) U/L C-Reactive Protein 13.9 H (<1.0) mg/dL Albumin 3.3 L (3.5-5.0) g/dL 05/25/21 05/25/21 05/25/21 Range/Units 04:56 05:01 10:33 RBC 5.56 H (4.10-5.20) X 10*6/uL Hgb 16.2 H (12.0-15.0) g/dL Hct 49.0 H (37.2-46.3) % Plt Count 464 H (140-440) X 10*3/uL Plt Count Comment INCREASED A Metamyelocytes % 4 H (0-0) % Myelocytes % 4 H (0-0) % Lymphocytes # (1.0-4.8) k/uL Lymphocytes # (Manual) 0.25 L (0.90-5.00) X 10*3/uL Eosinophils # (Manual) 0 L (0.04-0.35) X 10*3/uL D-Dimer 1.00 H (<0.60) mg/L FEU ABG pH (7.35-7.45) ABG pCO2 (35-45) mmHg ABG pO2 (83-108) mmHg ABG O2 Saturation (94-97) % Sodium 136 L (137-145) mmol/L Potassium 5.3 H (3.5-5.1) mmol/L Carbon Dioxide 19 L (22-30) mmol/L Glucose 161 H (74-99) mg/dL AST 186 H (14-36) U/L ALT 183 H (4-34) U/L Alkaline Phosphatase 263 H (38-126) U/L Lactate Dehydrogenase (313-618) U/L C-Reactive Protein (<1.0) mg/dL Albumin (3.5-5.0) g/dL 05/25/21 05/25/21 Range/Units 10:33 10:57 RBC (4.10-5.20) X 10*6/uL Hgb (12.0-15.0) g/dL Hct (37.2-46.3) % Plt Count (140-440) X 10*3/uL Plt Count Comment Metamyelocytes % (0-0) % Myelocytes % (0-0) % Lymphocytes # (1.0-4.8) k/uL Lymphocytes # (Manual) (0.90-5.00) X 10*3/uL Eosinophils # (Manual) (0.04-0.35) X 10*3/uL D-Dimer (<0.60) mg/L FEU ABG pH 7.54 H (7.35-7.45) ABG pCO2 28 L (35-45) mmHg ABG pO2 135 H (83-108) mmHg ABG O2 Saturation 99.2 H (94-97) % Sodium (137-145) mmol/L Potassium (3.5-5.1) mmol/L Carbon Dioxide (22-30) mmol/L Glucose (74-99) mg/dL AST (14-36) U/L ALT (4-34) U/L Alkaline Phosphatase (38-126) U/L Lactate Dehydrogenase (313-618) U/L C-Reactive Protein 8.7 H (<1.0) mg/dL Albumin (3.5-5.0) g/dL
[2021-05-25] MEDS: ENOXAPARIN 40 MG/0.4 ML SYRINGE SQ SCH (13:46)
[2021-05-25] MEDS ORDERED: LIDOCAINE 1% INJ 10MG/ML (20 ML MDV) SQ ONE (14:46)
--- NOTE | 2021-05-25 15:23 | XR ---
EXAMINATION TYPE: XR chest 1V portable DATE OF EXAM: 05/25/2021 COMPARISON: 05/24/2021 INDICATION: PICC line placement TECHNIQUE: Single frontal view of the chest is obtained. FINDINGS: The heart size is normal. The pulmonary vasculature is ,. Diffuse increased lung markings are present, present previously. There is placement of PICC line on the left, tip is in the region of the brachiocephalic vein. IMPRESSION: 1. Diffuse increased lung markings, stable from earlier exam. 2. PICC line placement with the tip reaching the region of the brachiocephalic vein.
--- NOTE | 2021-05-25 15:42 | IR ---
PICC LINE PLACEMENT: HISTORY: Infection requiring long-term antibiotic therapy PROCEDURE: Ultrasound guidance of PICC line placement. METAL MOULDER: COMPLICATIONS: None ANESTHESIA: 1. 1% Lidocaine locally. FINDINGS/TECHNIQUE: The procedure was explained to the patient. The risks, complications, benefits and alternatives were discussed and any questions were answered. Informed consent was obtained. The patient was placed supine on the fluoroscopic table and prepped and draped in the usual sterile fash ion. Utilizing a 21 gauge needle and sonographic guidance, access in the left basilic vein was achi eved and there is placement of a 0.018 guidewire. The vein is patent. A 5-F. sheath was placed over the guidewire. The guidewire and dilator were removed and a 5-F. Double lumen PICC line was placed through the sheath with the chest x-ray confirming the tip at the level of the SVC. The sheath was r emoved, the catheter was flushed and sutured into position. The patient was stable throughout the pr ocedure and remained stable upon discharge from the Department of Radiology. The vein puncture was patent under ultrasound. A parra scale image was obtained to document patency of the vein punctured. All elements of the maximal barrier technique were utilized. IMPRESSION: 1. Successful PICC line placement under ultrasound performed bedside.
[2021-05-25] MEDS ORDERED: ONDANSETRON 4 MG/2 ML VIAL IVP PRN (18:28)
[2021-05-25 20:13] LABS: Glucose,Whole Blood 164 mg/dL (75-99)
[2021-05-25] MEDS: ALPRAZolam 0.5 MG TAB PO SCH (20:55)
[2021-05-26 04:53] LABS: HCT 50.7 % (34.0-46.0); HGB 16.5 gm/dL (11.4-16.0); MCH 29.2 pg (25.0-35.0); MCHC 32.6 g/dL (31.0-37.0); MCV 89.5 fL (80.0-100.0); Mean Platelet Volume 7.6; Platelet Count 454 k/uL (150-450); RBC 5.66 m/uL (3.80-5.40); RDW 13.6 % (11.5-15.5); WBC 7.7 k/uL (3.8-10.6)
[2021-05-26 05:06] LABS: Albumin 3.6 g/dL (3.5-5.0); Calcium 9.5 mg/dL (8.4-10.2); Potassium 5.2 mmol/L (3.5-5.1); Total Bilirubin 0.8 mg/dL (0.2-1.3)
[2021-05-26 05:10] LABS: C Reactive Protein 5.5 mg/dL (<1.0)
[2021-05-26 06:23] LABS: Band Neutrophils % 2 %; Lymphocytes # (M) 1.23 k/uL (1.0-4.8); Monocytes # (M) 0.92 k/uL (0-1.0); Neutrophils % (M) 70 %; Nucleated Red Blood Cells 0 /100 WBC (0-0); Total Cells Counted 100
[2021-05-26] MEDS: SYMBICORT 80-4.5 MCG INHALER INHALATION SCH ×2 (07:31→20:09)
[2021-05-26] MEDS: ALPRAZolam 0.5 MG TAB PO SCH ×2 (08:35→21:48)
[2021-05-26] MEDS: MAGNESIUM OXIDE 400 MG TAB PO SCH (08:35)
[2021-05-26] MEDS: CHOLECALCIFEROL 25 MCG (1000 IU) TABLET PO SCH (08:36)
[2021-05-26] MEDS: PANTOPRAZOLE 40 MG TABLET PO SCH (08:36)
[2021-05-26] MEDS: ZINC SULFATE 220 MG CAP PO SCH (08:36)
[2021-05-26] MEDS: BACLOFEN 10 MG TAB PO SCH ×3 (08:36→21:48)
[2021-05-26] MEDS: ASCORBIC ACID 500 MG TAB PO SCH (08:36)
[2021-05-26] MEDS: DULoxetine HCL 60 MG CAPSULE.DR PO SCH (08:36)
[2021-05-26] MEDS: GABAPENTIN 300 MG CAP PO SCH ×3 (08:36→21:48)
[2021-05-26] MEDS: ENOXAPARIN 40 MG/0.4 ML SYRINGE SQ SCH (08:36)
[2021-05-26] MEDS: DEXAMETHASONE SOD PHOSPHATE 10 MG/ML 1 ML VIAL IV SCH (08:38)
[2021-05-26] MEDS: BARICITINIB 2 MG TABLET PO SCH (09:21)
[2021-05-26] MEDS: NON FORMULARY DRUG (Norethindrone [Camila] 0.35 MG Tablet) PO SCH (09:21)
--- NOTE | 2021-05-26 12:18 | P.PN ---
Subjective Progress Note Date: 05/26/21 Principal diagnosis: Acute hypoxic respiratory failure secondary to COVID-19 pneumonia This is a 55-year-old female patient with a history of fibromyalgia, gastroesophageal reflux disease, chronic bronchial asthma. She follows with Dr. Antony as her primary care provider. On 05/16/2021 she developed symptoms of increasing shortness of breath, cough congestion, vomiting. She was seen by her PCP and tested positive for COVID-19. She was initiated on a Medrol Dosepak and antibiotics for complaints of possible sinus infection as well. Her symptoms progressed she became more short of breath. She came in by EMS to the emergency room yesterday. Her initial O2 saturation was 81%. She was placed on 6 L of oxygen at that time. Chest x-ray showed low lung volumes with diffuse reticular and patchy opacities bilaterally. CAT scan revealed diffuse bilateral airspace disease. No pneumothorax or effusions. No evidence of pulmonary embolism. White count 4.9. Hemoglobin 16.2. Platelets 464. Lymphocytes 0.25. D-dimer 0.84. Sodium 136. Potassium 5.3. Bicarb 19. Creatinine 0.61. AST 186. ALT 183. LDH 2163. C-reactive protein 13.9. She is seen today in consultation in the emergency room. Her symptoms have progressed. She is now requiring BiPAP support 14/6 and 100% FiO2. She is tachycardic 120s-130s. Respiratory rate 26. Currently afebrile. Reevaluated today on 05/26/2021, patient remains in the ICU, we saw her yesterday on consultation for acute hypoxic respiratory failure secondary to COVID-19 pneumonia. Patient remains on BiPAP 14/7 and 50% FiO2. However will try to switch the patient to high flow airvo today if possible. Patient is on Decadron, she is also on Lovenox 40 mg subcu daily, and we started her yesterday on baricitinib. Not much of a international exchange coordinator the last 24 hours. Chest x-ray continues to show diffuse increased lung markings consistent with COVID-19 pneumonia. CBC is relatively unremarkable, she doesn't have relatively normal CBC. D-dimer is 0.91. Electrolytes are normal renal profile is normal. Liver enzymes are noted to be a bit elevated and her C-reactive protein is 5.5 and LDH is 1543. Objective - Vital Signs Vital signs: Vital Signs Temp 98.6 F 05/26/21 04:00 Pulse 97 05/26/21 11:00 Resp 13 05/26/21 11:00 BP 139/97 05/26/21 11:00 Pulse Ox 100 05/26/21 11:00 Intake & Output 05/25/21 05/26/21 05/26/21 18:59 06:59 18:59 Intake Total 500 225 Output Total 165 50 Balance 335 175 Weight 92.986 kg Intake: IV 225 0.9 225 Oral 500 Output: Urine 165 50 Other: # Voids 0 0 - Exam Physical Exam: Revealed a 55-year-old female on BiPAP, in no distress. HEENT:[Neck is supple.] [No neck masses.] [No thyromegaly.] [No JVD.] Chest: [Crackles at the bases, no rhonchi and no wheezes. Symmetrical chest expansion. Cardiac Exam: [Normal S1 and S2, no S3 gallop, no murmur.] Abdomen: [Soft, nontender, no megaly, no rebound, no guarding, normal bowel sounds.] Extremities: [No clubbing, no edema, no cyanosis.] Neurological Exam: [No focal neurologic deficit.] Alert oriented 3. Psychiatric: Normal mood affect and normal mental status examination. Skin: No rashes. Musculoskeletal: No deformities and no limitations in range of motion - Labs CBC & Chem 7: 05/26/21 03:58 05/26/21 03:58 Labs: Abnormal Lab Results - Last 24 Hours (Table) 05/24/21 05/25/21 05/26/21 Range/Units Unknown 20:11 03:58 RBC (3.80-5.40) m/uL Hgb (11.4-16.0) gm/dL Hct (34.0-46.0) % Plt Count (150-450) k/uL D-Dimer 0.91 H (<0.60) mg/L FEU Sodium (137-145) mmol/L Potassium (3.5-5.1) mmol/L Chloride (98-107) mmol/L BUN (7-17) mg/dL Glucose (74-99) mg/dL POC Glucose (mg/dL) 164 H (75-99) mg/dL Ferritin 827.0 H (10.0-291.0) ng/mL AST (14-36) U/L ALT (4-34) U/L Alkaline Phosphatase (38-126) U/L Lactate Dehydrogenase (313-618) U/L C-Reactive Protein (<1.0) mg/dL 05/26/21 05/26/21 05/26/21 Range/Units 03:58 03:58 03:58 RBC 5.66 H (3.80-5.40) m/uL Hgb 16.5 H (11.4-16.0) gm/dL Hct 50.7 H (34.0-46.0) % Plt Count 454 H (150-450) k/uL D-Dimer (<0.60) mg/L FEU Sodium 135 L (137-145) mmol/L Potassium 5.2 H (3.5-5.1) mmol/L Chloride 97 L (98-107) mmol/L BUN 27 H (7-17) mg/dL Glucose 156 H (74-99) mg/dL POC Glucose (mg/dL) (75-99) mg/dL Ferritin (10.0-291.0) ng/mL AST 172 H (14-36) U/L ALT 204 H (4-34) U/L Alkaline Phosphatase 259 H (38-126) U/L Lactate Dehydrogenase 1543 H (313-618) U/L C-Reactive Protein 5.5 H (<1.0) mg/dL Assessment and Plan Assessment: Impression: Acute hypoxic failure secondary to acute COVID-19 pneumonia Elevated inflammatory markers and elevated liver enzymes secondary to COVID-19 pneumonia/infection History of fibromyalgia History of asthma History of GERD without esophagitis. Recommendation: Continue BiPAP, however may transition to airvo this morning. Continue to monitor in the ICU for the next 24 hours. Continue Decadron Lovenox and vitamin supplements and baricitinib Patient's pulmonary status is marginal at best. Patient is critically ill, We will continue to follow. Time with Patient: Less than 30
[2021-05-26] MEDS: traMADol 50 MG TAB PO PRN (18:24)
[2021-05-26] MEDS: SODIUM CHLORIDE 0.9% 1,000 ML IV SCH (18:25)
[2021-05-27 06:00] LABS: Albumin 2.8 g/dL (3.5-5.0); Calcium 8.4 mg/dL (8.4-10.2); Potassium 4.4 mmol/L (3.5-5.1); Total Bilirubin 0.6 mg/dL (0.2-1.3); Total Protein 5.7 g/dL (6.3-8.2)
[2021-05-27] MEDS: PANTOPRAZOLE 40 MG TABLET PO SCH (07:13)
[2021-05-27] MEDS: SODIUM CHLORIDE 0.9% 1,000 ML IV SCH ×2 (07:13→17:25)
--- NOTE | 2021-05-27 07:13 | XR ---
EXAMINATION TYPE: XR chest 1V portable DATE OF EXAM: 05/27/2021 COMPARISON: 05/25/2021 HISTORY: Cough TECHNIQUE: Single frontal view of the chest is obtained. FINDINGS: A diffuse interstitial pattern compatible with interstitial infiltrates. Limited inspirati on and the heart is normal in size. No sizable pneumothorax. PICC line noted. No sizable pleural effu paige. Surgical clips in the abdomen. IMPRESSION: Stable diffuse bilateral interstitial infiltrate.
[2021-05-27] MEDS: ALPRAZolam 0.5 MG TAB PO SCH ×3 (07:20→21:17)
--- NOTE | 2021-05-27 08:42 | P.PN ---
Subjective Progress Note Date: 05/26/21 Patient is a pleasant 60-year-old female came in with compensative shortness of breath be started about 10 days ago along with cough congestion and vomiting. Patient assessed is positive for COVID-19. Patient did not receive covid 19 patient is tachypneic on BiPAP at this time. Patient the d-dimer is around 0.84. Potassium is 5.3. Patient chest x-ray showing diffuse infiltrate computed tomography scan revealed diffuse bilateral air space disease. Patient is tachycardic with heart rate in 120s 130s. Denied any smoking history. Patient does have elevated liver enzymes. 05/26/2021 Patient is seen and evaluated in the ICU being closely monitored. Pulmonary following closely and patient has been transitioned from BiPAP to Airvo and weaning FiO2 as tolerated. She is sitting up in the chair alert and oriented 3. Oxygen saturations are variable and patient continues to be dyspneic and d oes become slightly winded during conversation. Patient is maintained on IV dexamethasone along with vitamin and zinc supplements, subcutaneous Lovenox and patient has been started on Baricitinib. Patient is not vaccinated for COVID- 19. Patient states she is eating and tolerating with no nausea or vomiting noted. Patient is maintained on gentle IV hydration will continue for now sodium is 135. D-dimer is 0.91 and again maintained on Lovenox, potassium is 5.2, current creatinine is 0.9 LFTs are elevated and LDH is 1543 and CRP trending down at 5.5. Encouraged activity as tolerated Review of systems: Constitutional: No reports of fatigue, fever, or chills Cardiovascular: No reports of chest pain or palpitations Respiratory: reports of shortness of breath and feeling slightly uncomfortable with airvo GI: No reports of nausea, vomiting, or diarrhea : No reports of dysuria or retention Neurovascular: reports of generalized weakness All medications have been reviewed PHYSICAL EXAMINATION: GENERAL: The patient is alert and oriented x3, . Well developed, well nourished. Was On BiPAP and attempting airvo with continued attempts at weaning FiO2 as tolerated HEENT: Pupils are round and equally reacting to light. EOMI. No scleral icterus. No conjunctival pallor. Normocephalic, atraumatic. No pharyngeal erythema. No thyromegaly. CARDIOVASCULAR: S1 and S2 muffled PULMONARY: Diminished breath sounds bilaterally with some scattered coarse rhonchi noted no wheezing or crackles. ABDOMEN: Soft, nontender, nondistended, normoactive bowel sounds. No palpable organomegaly. MUSCULOSKELETAL: No joint swelling or deformity. EXTREMITIES: No cyanosis, clubbing, or pedal edema. NEUROLOGICAL: Gross neurological examination did not reveal any focal deficits. SKIN: No rashes. Assessment and plan: -Acute hypoxic respiratory failure secondary to severe Covid 19 pneumonia. Patient received 1 dose of Remdesivir. Patient continued on Barcitinib and was placed on BiPAP and now moved to Airvo -Severe sepsis secondary to Covid 19 pneumonia with highly elevated inflammatory markers PE was ruled out -Elevated d-dimer without evidence of PE -Transaminitis secondary to sepsis -Fibromyalgia -Obesity -Gastroesophageal reflux disease -DVT prophylaxis: Patient is on Lovenox which will be continued Objective - Vital Signs Vital signs: Vital Signs Temp 98.6 F 05/26/21 04:00 Pulse 90 05/26/21 07:00 Resp 19 05/26/21 07:00 BP 142/93 05/26/21 07:00 Pulse Ox 95 05/26/21 07:00 Intake & Output 05/25/21 05/26/21 05/26/21 18:59 06:59 18:59 Intake Total 500 Output Total 165 Balance 335 Weight 92.986 kg Intake: Oral 500 Output: Urine 165 Other: # Voids 0 - Labs CBC & Chem 7: 05/26/21 03:58 05/27/21 04:33 Labs: Abnormal Lab Results - Last 24 Hours (Table) 05/24/21 05/25/21 05/25/21 Range/Units Unknown 04:56 10:33 RBC 5.56 H (4.10-5.20) X 10*6/uL Hgb 16.2 H (12.0-15.0) g/dL Hct 49.0 H (37.2-46.3) % Plt Count 464 H (140-440) X 10*3/uL Plt Count Comment INCREASED A Metamyelocytes % 4 H (0-0) % Myelocytes % 4 H (0-0) % Lymphocytes # (Manual) 0.25 L (0.90-5.00) X 10*3/uL Eosinophils # (Manual) 0 L (0.04-0.35) X 10*3/uL D-Dimer 1.00 H (<0.60) mg/L FEU ABG pH (7.35-7.45) ABG pCO2 (35-45) mmHg ABG pO2 (83-108) mmHg ABG O2 Saturation (94-97) % Sodium (137-145) mmol/L Potassium (3.5-5.1) mmol/L Chloride (98-107) mmol/L BUN (7-17) mg/dL Glucose (74-99) mg/dL POC Glucose (mg/dL) (75-99) mg/dL Ferritin 827.0 H (10.0-291.0) ng/mL AST (14-36) U/L ALT (4-34) U/L Alkaline Phosphatase (38-126) U/L Lactate Dehydrogenase (313-618) U/L C-Reactive Protein (<1.0) mg/dL 05/25/21 05/25/21 05/25/21 Range/Units 10:33 10:57 20:11 RBC (4.10-5.20) X 10*6/uL Hgb (12.0-15.0) g/dL Hct (37.2-46.3) % Plt Count (140-440) X 10*3/uL Plt Count Comment Metamyelocytes % (0-0) % Myelocytes % (0-0) % Lymphocytes # (Manual) (0.90-5.00) X 10*3/uL Eosinophils # (Manual) (0.04-0.35) X 10*3/uL D-Dimer (<0.60) mg/L FEU ABG pH 7.54 H (7.35-7.45) ABG pCO2 28 L (35-45) mmHg ABG pO2 135 H (83-108) mmHg ABG O2 Saturation 99.2 H (94-97) % Sodium (137-145) mmol/L Potassium (3.5-5.1) mmol/L Chloride (98-107) mmol/L BUN (7-17) mg/dL Glucose (74-99) mg/dL POC Glucose (mg/dL) 164 H (75-99) mg/dL Ferritin (10.0-291.0) ng/mL AST (14-36) U/L ALT (4-34) U/L Alkaline Phosphatase (38-126) U/L Lactate Dehydrogenase (313-618) U/L C-Reactive Protein 8.7 H (<1.0) mg/dL 05/26/21 05/26/21 05/26/21 Range/Units 03:58 03:58 03:58 RBC 5.66 H (4.10-5.20) X 10*6/uL Hgb 16.5 H (12.0-15.0) g/dL Hct 50.7 H (37.2-46.3) % Plt Count 454 H (140-440) X 10*3/uL Plt Count Comment Metamyelocytes % (0-0) % Myelocytes % (0-0) % Lymphocytes # (Manual) (0.90-5.00) X 10*3/uL Eosinophils # (Manual) (0.04-0.35) X 10*3/uL D-Dimer 0.91 H (<0.60) mg/L FEU ABG pH (7.35-7.45) ABG pCO2 (35-45) mmHg ABG pO2 (83-108) mmHg ABG O2 Saturation (94-97) % Sodium (137-145) mmol/L Potassium (3.5-5.1) mmol/L Chloride (98-107) mmol/L BUN (7-17) mg/dL Glucose (74-99) mg/dL POC Glucose (mg/dL) (75-99) mg/dL Ferritin (10.0-291.0) ng/mL AST (14-36) U/L ALT (4-34) U/L Alkaline Phosphatase (38-126) U/L Lactate Dehydrogenase 1543 H (313-618) U/L C-Reactive Protein 5.5 H (<1.0) mg/dL 05/26/21 Range/Units 03:58 RBC (4.10-5.20) X 10*6/uL Hgb (12.0-15.0) g/dL Hct (37.2-46.3) % Plt Count (140-440) X 10*3/uL Plt Count Comment Metamyelocytes % (0-0) % Myelocytes % (0-0) % Lymphocytes # (Manual) (0.90-5.00) X 10*3/uL Eosinophils # (Manual) (0.04-0.35) X 10*3/uL D-Dimer (<0.60) mg/L FEU ABG pH (7.35-7.45) ABG pCO2 (35-45) mmHg ABG pO2 (83-108) mmHg ABG O2 Saturation (94-97) % Sodium 135 L (137-145) mmol/L Potassium 5.2 H (3.5-5.1) mmol/L Chloride 97 L (98-107) mmol/L BUN 27 H (7-17) mg/dL Glucose 156 H (74-99) mg/dL POC Glucose (mg/dL) (75-99) mg/dL Ferritin (10.0-291.0) ng/mL AST 172 H (14-36) U/L ALT 204 H (4-34) U/L Alkaline Phosphatase 259 H (38-126) U/L Lactate Dehydrogenase (313-618) U/L C-Reactive Protein (<1.0) mg/dL
[2021-05-27] MEDS: NON FORMULARY DRUG (Norethindrone [Camila] 0.35 MG Tablet) PO SCH (09:00)
[2021-05-27] MEDS: DEXAMETHASONE SOD PHOSPHATE 10 MG/ML 1 ML VIAL IV SCH (09:15)
[2021-05-27] MEDS: DULoxetine HCL 60 MG CAPSULE.DR PO SCH (09:16)
[2021-05-27] MEDS: MAGNESIUM OXIDE 400 MG TAB PO SCH (09:16)
[2021-05-27] MEDS: ASCORBIC ACID 500 MG TAB PO SCH (09:16)
[2021-05-27] MEDS: ENOXAPARIN 40 MG/0.4 ML SYRINGE SQ SCH (09:16)
[2021-05-27] MEDS: BACLOFEN 10 MG TAB PO SCH ×3 (09:16→21:17)
[2021-05-27] MEDS: ZINC SULFATE 220 MG CAP PO SCH (09:16)
[2021-05-27] MEDS: GABAPENTIN 300 MG CAP PO SCH ×3 (09:16→21:17)
[2021-05-27] MEDS: CHOLECALCIFEROL 25 MCG (1000 IU) TABLET PO SCH (09:16)
[2021-05-27] MEDS: BARICITINIB 2 MG TABLET PO SCH (09:17)
[2021-05-27 10:08] LABS: C Reactive Protein 2.4 mg/dL (<1.0)
[2021-05-27 10:11] LABS: HCT 38.7 % (34.0-46.0); MCH 29.5 pg (25.0-35.0); MCHC 33.6 g/dL (31.0-37.0); MCV 87.9 fL (80.0-100.0); Mean Platelet Volume 8.9; Platelet Count 448 k/uL (150-450); Poikilocytosis Slight; WBC 8.4 k/uL (3.8-10.6)
[2021-05-27] MEDS: SYMBICORT 80-4.5 MCG INHALER INHALATION SCH ×2 (11:29→20:30)
--- NOTE | 2021-05-27 12:45 | P.PN ---
Subjective Progress Note Date: 05/27/21 Principal diagnosis: Acute hypoxic respiratory failure secondary to COVID-19 pneumonia This is a 55-year-old female patient with a history of fibromyalgia, gastroesophageal reflux disease, chronic bronchial asthma. She follows with Dr. Antony as her primary care provider. On 05/16/2021 she developed symptoms of increasing shortness of breath, cough congestion, vomiting. She was seen by her PCP and tested positive for COVID-19. She was initiated on a Medrol Dosepak and antibiotics for complaints of possible sinus infection as well. Her symptoms progressed she became more short of breath. She came in by EMS to the emergency room yesterday. Her initial O2 saturation was 81%. She was placed on 6 L of oxygen at that time. Chest x-ray showed low lung volumes with diffuse reticular and patchy opacities bilaterally. CAT scan revealed diffuse bilateral airspace disease. No pneumothorax or effusions. No evidence of pulmonary embolism. White count 4.9. Hemoglobin 16.2. Platelets 464. Lymphocytes 0.25. D-dimer 0.84. Sodium 136. Potassium 5.3. Bicarb 19. Creatinine 0.61. AST 186. ALT 183. LDH 2163. C-reactive protein 13.9. She is seen today in consultation in the emergency room. Her symptoms have progressed. She is now requiring BiPAP support 14/6 and 100% FiO2. She is tachycardic 120s-130s. Respiratory rate 26. Currently afebrile. Reevaluated today on 05/26/2021, patient remains in the ICU, we saw her yesterday on consultation for acute hypoxic respiratory failure secondary to COVID-19 pneumonia. Patient remains on BiPAP 14/7 and 50% FiO2. However will try to switch the patient to high flow airvo today if possible. Patient is on Decadron, she is also on Lovenox 40 mg subcu daily, and we started her yesterday on baricitinib. Not much of a frame changer the last 24 hours. Chest x-ray continues to show diffuse increased lung markings consistent with COVID-19 pneumonia. CBC is relatively unremarkable, she doesn't have relatively normal CBC. D-dimer is 0.91. Electrolytes are normal renal profile is normal. Liver enzymes are noted to be a bit elevated and her C-reactive protein is 5.5 and LDH is 1543. Reevaluated today on 05/27/2021, patient remains in the ICU, she is now on 8 L high flow cannula, O2 saturations 94%. Patient seems to be doing much better clinically breathing a lot easier, intermittent cough noted, no fever no chills no hemoptysis no chest pain. CBC is relatively unremarkable. Electrolytes are normal d-dimer is 0.91. Renal profile is normal slightly elevated liver enzymes noted. LDH is down to 1159 from 1543 yesterday, C-reactive protein is down to 2.4. Chest x-ray is basically about the same, continues to have bilateral peripheral infiltrates Objective - Vital Signs Vital signs: Vital Signs Temp 98 F 05/27/21 08:00 Pulse 70 05/27/21 09:00 Resp 17 05/27/21 09:00 BP 114/63 05/27/21 10:00 Pulse Ox 97 05/27/21 09:00 Intake & Output 05/26/21 05/27/21 05/27/21 18:59 06:59 18:59 Intake Total 750 1000 300 Output Total 50 Balance 700 1000 300 Weight 93.4 kg Intake: IV 750 900 75 0.9 750 900 75 Intake, IV Titration 225 Amount Sodium Chloride 0.9% 1, 225 000 ml @ 75 mls/hr IV . [id number] [facility] Rx#:[id number] Oral 100 Output: Urine 50 Other: Voiding Method Toilet # Voids 1 0 0 - Labs CBC & Chem 7: 05/27/21 04:33 05/27/21 04:33 Labs: Abnormal Lab Results - Last 24 Hours (Table) 05/27/21 05/27/21 Range/Units 04:33 04:33 Sodium 133 L (137-145) mmol/L BUN 22 H (7-17) mg/dL Glucose 103 H (74-99) mg/dL AST 156 H (14-36) U/L ALT 202 H (4-34) U/L Alkaline Phosphatase 175 H (38-126) U/L Lactate Dehydrogenase 1159 H (313-618) U/L C-Reactive Protein 2.4 H (<1.0) mg/dL Total Protein 5.7 L (6.3-8.2) g/dL Albumin 2.8 L (3.5-5.0) g/dL Assessment and Plan Assessment: Impression: Acute hypoxic failure secondary to acute COVID-19 pneumonia Elevated inflammatory markers and elevated liver enzymes secondary to COVID-19 pneumonia/infection by inflammatory markers are improving today. History of fibromyalgia History of asthma History of GERD without esophagitis. Recommendation: Continue high flow nasal cannula and titrate oxygen accordingly. Transfer patient to a regular medical floor. Continue Decadron Lovenox and vitamin supplements and baricitinib We will continue to follow. Considering the significant improvement in the last 24 hours, will transfer to a regular medical floor. Time with Patient: Less than 30
[2021-05-27] MEDS: traMADol 50 MG TAB PO PRN (21:17)
[2021-05-28] MEDS: traMADol 50 MG TAB PO PRN ×2 (03:13→23:01)
--- NOTE | 2021-05-28 04:47 | P.PN ---
Subjective Progress Note Date: 05/27/21 Patient is a pleasant 60-year-old female came in with compensative shortness of breath be started about 10 days ago along with cough congestion and vomiting. Patient assessed is positive for COVID-19. Patient did not receive covid 19 patient is tachypneic on BiPAP at this time. Patient the d-dimer is around 0.84. Potassium is 5.3. Patient chest x-ray showing diffuse infiltrate computed tomography scan revealed diffuse bilateral air space disease. Patient is tachycardic with heart rate in 120s 130s. Denied any smoking history. Patient does have elevated liver enzymes. 05/26/2021 Patient is seen and evaluated in the ICU being closely monitored. Pulmonary following closely and patient has been transitioned from BiPAP to Airvo and weaning FiO2 as tolerated. She is sitting up in the chair alert and oriented 3. Oxygen saturations are variable and patient continues to be dyspneic and d oes become slightly winded during conversation. Patient is maintained on IV dexamethasone along with vitamin and zinc supplements, subcutaneous Lovenox and patient has been started on Baricitinib. Patient is not vaccinated for COVID- 19. Patient states she is eating and tolerating with no nausea or vomiting noted. Patient is maintained on gentle IV hydration will continue for now sodium is 135. D-dimer is 0.91 and again maintained on Lovenox, potassium is 5.2, current creatinine is 0.9 LFTs are elevated and LDH is 1543 and CRP trending down at 5.5. Encouraged activity as tolerated 05/27/2021 Patient is seen and evaluated this morning and remains in the ICU with awaiting a downgrade once a bed is available. Pulmonary following closely and weaning FI02 as tolerated. Patient has been transitioned to 8L high flow NC and tolerating. Patient is tolerating diet and currently sitting up at the bedside eating lunch. Patient has been up and transferring from the chair to the bed often and doing positioning changes while in bed. Patient is continued on IV dexamethasone, lovenox, vitamin and zinc supplements. Patient continues on Baricitinib. Labs: Sodium is 133, potassium is 4.2, creatinine is .93, LFT trending down, LDH is 1159, crp is 2.4, WBC 8.4, hemoglobin is 13.0 Review of systems: Constitutional: No reports of fatigue, fever, or chills Cardiovascular: No reports of chest pain or palpitations Respiratory: reports of shortness of breath and feeling slightly improved GI: No reports of nausea, vomiting, or diarrhea : No reports of dysuria or retention Neurovascular: reports of generalized weakness All medications have been reviewed Active Medications Acetaminophen (Acetaminophen Tab 325 Mg Tab) 650 mg PO Q6HR PRN PRN Reason: Mild Pain or Fever > 100.5 Last Admin: 05/26/21 06:43 Dose: 650 mg Documented by: Alprazolam (Alprazolam 0.5 Mg Tab) 0.5 mg PO TID [facility] Last Admin: 05/27/21 21:17 Dose: 0.5 mg Documented by: Ascorbic Acid (Ascorbic Acid 500 Mg Tab) 1,000 mg PO DAILY [facility] Last Admin: 05/27/21 09:16 Dose: 1,000 mg Documented by: Baclofen (Baclofen 10 Mg Tab) 10 mg PO TID [facility] Last Admin: 05/27/21 21:17 Dose: 10 mg Documented by: Baricitinib (Baricitinib 2 Mg Tablet) 4 mg PO DAILY [facility] Stop: 06/07/21 09:01 Last Admin: 05/27/21 09:17 Dose: 4 mg Documented by: Budesonide/Formoterol Fumarate (Symbicort 80-4.5 Mcg Inhaler) 2 puff INHALATION RT-BID [facility] Last Admin: 05/27/21 20:30 Dose: Not Given Documented by: Cholecalciferol (Cholecalciferol 25 Mcg (1000 Iu) Tablet) 25 mcg PO DAILY [facility] Last Admin: 05/27/21 09:16 Dose: 25 mcg Documented by: Dexamethasone Sodium Phosphate (Dexamethasone Sod Phosphate 10 Mg/Ml 1 Ml Vial) 6 mg IV DAILY [facility] Last Admin: 05/27/21 09:15 Dose: 6 mg Documented by: Duloxetine HCl (Duloxetine Hcl 60 Mg Capsule.Dr) 60 mg PO DAILY [facility] Last Admin: 05/27/21 09:16 Dose: 60 mg Documented by: Enoxaparin Sodium (Enoxaparin 40 Mg/0.4 Ml Syringe) 40 mg SQ DAILY [facility] Last Admin: 05/27/21 09:16 Dose: 40 mg Documented by: Fluticasone Propionate (Fluticasone 50mcg/Pheba Nasal 16gm) 1 spray EA NOSTRIL DAILY PRN PRN Reason: Allergy Symptoms Gabapentin (Gabapentin 300 Mg Cap) 300 mg PO TID [facility] Last Admin: 05/27/21 21:17 Dose: 300 mg Documented by: Sodium Chloride (Saline 0.9%) 1,000 mls @ 75 mls/hr IV .[id number] [facility] Last Admin: 05/27/21 17:25 Dose: 75 mls/hr Documented by: Magnesium Oxide (Magnesium Oxide 400 Mg Tab) 400 mg PO DAILY [facility] Last Admin: 05/27/21 09:16 Dose: 400 mg Documented by: Naloxone HCl (Naloxone 0.4 Mg/Ml 1 Ml Vial) 0.2 mg IV Q2M PRN PRN Reason: Opioid Reversal Non-Formulary Medication (Norethindrone [Marielena]) 0.35 mg PO DAILY [facility] Last Admin: 05/27/21 09:00 Dose: Not Given Documented by: Ondansetron HCl (Ondansetron 4 Mg/2 Ml Vial) 4 mg IVP Q6HR PRN PRN Reason: Nausea And Vomiting Last Admin: 05/25/21 18:38 Dose: 4 mg Documented by: Pantoprazole Sodium (Pantoprazole 40 Mg Tablet) 40 mg PO AC-BRKFST [facility] Last Admin: 05/27/21 07:13 Dose: 40 mg Documented by: Ropinirole HCl (Ropinirole Hcl 1 Mg Tab) 1 mg PO BID [facility] Last Admin: 05/27/21 21:17 Dose: 1 mg Documented by: Tramadol HCl (Tramadol 50 Mg Tab) 100 mg PO BID PRN PRN Reason: Pain Last Admin: 05/28/21 03:13 Dose: 100 mg Documented by: Zinc Sulfate (Zinc Sulfate 220 Mg Cap) 220 mg PO DAILY [facility] Last Admin: 05/27/21 09:16 Dose: 220 mg Documented by: PHYSICAL EXAMINATION: GENERAL: The patient is alert and oriented x3, . Well developed, well nourished. Was On BiPAP and transitioned to airvo with continued attempts at weaning FiO2 as tolerated and is now currently on 8L HF. Temp is 98, pulse is 92, resp 17, blood pressure is 112/71, and pulse ox is 97 on 8L HF HEENT: Pupils are round and equally reacting to light. EOMI. No scleral icterus. No conjunctival pallor. Normocephalic, atraumatic. No pharyngeal erythema. No thyromegaly. CARDIOVASCULAR: S1 and S2 muffled PULMONARY: Diminished breath sounds bilaterally with some scattered coarse rhonchi noted no wheezing or crackles. ABDOMEN: Soft, nontender, nondistended, normoactive bowel sounds. No palpable organomegaly. MUSCULOSKELETAL: No joint swelling or deformity. EXTREMITIES: No cyanosis, clubbing, or pedal edema. NEUROLOGICAL: Gross neurological examination did not reveal any focal deficits. SKIN: No rashes. Assessment and plan: -Acute hypoxic respiratory failure secondary to severe Covid 19 pneumonia. Patient received 1 dose of Remdesivir. Patient continued on Barcitinib -Severe sepsis secondary to Covid 19 pneumonia with highly elevated inflammatory markers PE was ruled out -Elevated d-dimer without evidence of PE -Transaminitis secondary to sepsis -Fibromyalgia -Obesity -Gastroesophageal reflux disease -DVT prophylaxis: Patient is on Lovenox which will be continued -Full code Plan: Recommend close monitoring and continue with current medications. Patient is maintained on Baricitinib along with vitamin and zinc supplements and IV dexamethasone and lovenox. Continue to wean FI02 as tolerated. Patient was placed on Bipap shortly after admission and transitioned to airvo and now currently on 8L high flow NC. Pulmonary following closely. Patient is being downgraded from the ICU once a bed becomes available. Prognosis is guarded. Will continue to monitor closely. Objective - Vital Signs Vital signs: Vital Signs Temp 98.9 F 05/26/21 16:00 Pulse 75 05/27/21 07:00 Resp 44 H 05/27/21 07:00 BP 122/68 05/27/21 07:00 Pulse Ox 94 L 05/27/21 07:00 Intake & Output 05/26/21 05/27/21 05/27/21 18:59 06:59 18:59 Intake Total 750 1000 75 Output Total 50 Balance 700 1000 75 Weight 93.4 kg Intake: IV 750 900 75 0.9 750 900 75 Oral 100 Output: Urine 50 Other: # Voids 1 0 - Labs CBC & Chem 7: 05/27/21 04:33 05/27/21 04:33 Labs: Abnormal Lab Results - Last 24 Hours (Table) 05/27/21 Range/Units 04:33 Sodium 133 L (137-145) mmol/L BUN 22 H (7-17) mg/dL Glucose 103 H (74-99) mg/dL AST 156 H (14-36) U/L ALT 202 H (4-34) U/L Alkaline Phosphatase 175 H (38-126) U/L Total Protein 5.7 L (6.3-8.2) g/dL Albumin 2.8 L (3.5-5.0) g/dL
--- NOTE | 2021-05-28 07:35 | XR ---
EXAMINATION TYPE: XR chest 1V portable DATE OF EXAM: 05/28/2021 COMPARISON: Chest x-ray 05/27/2021 HISTORY: Covid pneumonia TECHNIQUE: Single frontal view of the chest is obtained. FINDINGS: Bilateral patchy airspace disease persists. Cardiac mediastinal silhouette is stable. Left -sided PICC line is noted distal tip overlying the superior vena cava. No evident pneumothorax or ple ural effusion. Lung volumes are low. IMPRESSION: Findings consistent with patient's history Covid pneumonia
[2021-05-28 08:31] LABS: Basophils % (A) 0 %; Eosinophils % (A) 0 %; HCT 37.2 % (34.0-46.0); HGB 12.3 gm/dL (11.4-16.0); Lymphocytes % (A) 11 %; MCH 29.2 pg (25.0-35.0); MCHC 32.9 g/dL (31.0-37.0); MCV 88.6 fL (80.0-100.0); Mean Platelet Volume 7.7; Monocytes # (A) 0.6 k/uL (0-1.0); Monocytes % (A) 7 %; Neutrophils # (A) 7.4 k/uL (1.3-7.7); Neutrophils % (A) 81 %; Platelet Count 421 k/uL (150-450); RDW 13.3 % (11.5-15.5); WBC 9.2 k/uL (3.8-10.6)
[2021-05-28 08:53] LABS: ALT 142 U/L (4-34); AST 68 U/L (14-36); African American GFR (CKD) >90 (>60 ml/min/1.73 sqM); Albumin 2.9 g/dL (3.5-5.0); Alkaline Phosphatase 149 U/L (38-126); Anion Gap 4 mmol/L; Blood Urea Nitrogen 13 mg/dL (7-17); Calcium 8.5 mg/dL (8.4-10.2); Carbon Dioxide 26 mmol/L (22-30); Chloride 105 mmol/L (98-107); Glucose 107 mg/dL (74-99); LDH 974 U/L (313-618); Non-African American GFR(CKD) >90 (>60 ml/min/1.73 sqM); Potassium 4.2 mmol/L (3.5-5.1); Sodium 135 mmol/L (137-145); Total Bilirubin 0.4 mg/dL (0.2-1.3); Total Protein 5.7 g/dL (6.3-8.2)
[2021-05-28] MEDS: SYMBICORT 80-4.5 MCG INHALER INHALATION SCH ×2 (09:07→20:15)
[2021-05-28] MEDS: ZINC SULFATE 220 MG CAP PO SCH (09:08)
[2021-05-28] MEDS: CHOLECALCIFEROL 25 MCG (1000 IU) TABLET PO SCH (09:08)
[2021-05-28] MEDS: ASCORBIC ACID 500 MG TAB PO SCH (09:08)
[2021-05-28] MEDS: PANTOPRAZOLE 40 MG TABLET PO SCH (09:08)
[2021-05-28] MEDS: BACLOFEN 10 MG TAB PO SCH ×3 (09:08→21:16)
[2021-05-28] MEDS: ALPRAZolam 0.5 MG TAB PO SCH ×3 (09:09→21:16)
[2021-05-28] MEDS: GABAPENTIN 300 MG CAP PO SCH ×3 (09:09→21:16)
[2021-05-28] MEDS: MAGNESIUM OXIDE 400 MG TAB PO SCH (09:09)
[2021-05-28] MEDS: DULoxetine HCL 60 MG CAPSULE.DR PO SCH (09:09)
[2021-05-28] MEDS: ENOXAPARIN 40 MG/0.4 ML SYRINGE SQ SCH (09:09)
[2021-05-28] MEDS: BARICITINIB 2 MG TABLET PO SCH (09:09)
[2021-05-28] MEDS: DEXAMETHASONE SOD PHOSPHATE 10 MG/ML 1 ML VIAL IV SCH (09:09)
[2021-05-28] MEDS: NON FORMULARY DRUG (Norethindrone [Camila] 0.35 MG Tablet) PO SCH (09:52)
[2021-05-28] MEDS: SODIUM CHLORIDE 0.9% 1,000 ML IV SCH ×2 (11:01→21:16)
--- NOTE | 2021-05-28 13:25 | P.PN ---
Subjective Progress Note Date: 05/28/21 Principal diagnosis: Acute COVID-19 pneumonia This is a 55-year-old female patient with a history of fibromyalgia, gastroesophageal reflux disease, chronic bronchial asthma. She follows with Dr. Antony as her primary care provider. On 05/16/2021 she developed symptoms of increasing shortness of breath, cough congestion, vomiting. She was seen by her PCP and tested positive for COVID-19. She was initiated on a Medrol Dosepak and antibiotics for complaints of possible sinus infection as well. Her symptoms progressed she became more short of breath. She came in by EMS to the emergency room yesterday. Her initial O2 saturation was 81%. She was placed on 6 L of oxygen at that time. Chest x-ray showed low lung volumes with diffuse reticular and patchy opacities bilaterally. CAT scan revealed diffuse bilateral airspace disease. No pneumothorax or effusions. No evidence of pulmonary embolism. White count 4.9. Hemoglobin 16.2. Platelets 464. Lymphocytes 0.25. D-dimer 0.84. Sodium 136. Potassium 5.3. Bicarb 19. Creatinine 0.61. AST 186. ALT 183. LDH 2163. C-reactive protein 13.9. She is seen today in consultation in the emergency room. Her symptoms have progressed. She is now requiring BiPAP support 14/6 and 100% FiO2. She is tachycardic 120s-130s. Respiratory rate 26. Currently afebrile. Reevaluated today on 05/26/2021, patient remains in the ICU, we saw her yesterday on consultation for acute hypoxic respiratory failure secondary to COVID-19 pneumonia. Patient remains on BiPAP 14/7 and 50% FiO2. However will try to switch the patient to high flow airvo today if possible. Patient is on Decadron, she is also on Lovenox 40 mg subcu daily, and we started her yesterday on baricitinib. Not much of a plant changer the last 24 hours. Chest x-ray continues to show diffuse increased lung markings consistent with COVID-19 pneumonia. CBC is relatively unremarkable, she doesn't have relatively normal CBC. D-dimer is 0.91. Electrolytes are normal renal profile is normal. Liver enzymes are noted to be a bit elevated and her C-reactive protein is 5.5 and LDH is 1543. Reevaluated today on 05/27/2021, patient remains in the ICU, she is now on 8 L high flow cannula, O2 saturations 94%. Patient seems to be doing much better cl inically breathing a lot easier, intermittent cough noted, no fever no chills no hemoptysis no chest pain. CBC is relatively unremarkable. Electrolytes are normal d-dimer is 0.91. Renal profile is normal slightly elevated liver enzymes noted. LDH is down to 1159 from 1543 yesterday, C-reactive protein is down to 2.4. Chest x-ray is basically about the same, continues to have bilateral peripheral infiltrates On 06/07/2021 patient seen in follow-up on medical surgical floor, she has not required BiPAP support in the last 2 days, she is currently down to 4 L of oxygen, pulse ox is 94%, she is afebrile, hemodynamically she is stable, she's been transferred out of ICU, she is been stable clinically, she is breathing comfortably, today's chest x-ray shows possible improvement in appearance of bilateral infiltrates. She still has point nursing infusing at a rate of 75 ML per hour, patient continues on Baricitinib, Decadron 6 mg daily, and she is on prophylactic dose of Lovenox. Today's labs have been reviewed, her CBC is within normal limits, her d-dimer is 1.12, her electrolytes and renal profile were unremarkable, her LFTs are improving, her inflammatory markers are improving. Objective - Vital Signs Vital signs: Vital Signs Temp 97.4 F L 05/28/21 09:20 Pulse 71 05/28/21 09:20 Resp 16 05/28/21 09:20 BP 105/67 05/28/21 09:20 Pulse Ox 94 L 05/28/21 09:20 Intake & Output 05/27/21 05/28/21 05/28/21 18:59 06:59 18:59 Intake Total 900 150 486 Balance 900 150 486 Intake: IV 675 0.9 675 Intake, IV Titration 225 Amount Sodium Chloride 0.9% 1, 225 000 ml @ 75 mls/hr IV . [id number] [facility] Rx#:[id number] Oral 150 486 Other: Voiding Method Toilet Toilet Toilet # Voids 1 0 - Exam GENERAL EXAM: Alert, very pleasant, 55-year-old white female, currently on 4 L of oxygen with a pulse ox of 94% comfortable in no apparent distress. HEAD: Normocephalic/atraumatic. EYES: Normal reaction of pupils, equal size. Conjunctiva pink, sclera white. NOSE: Clear with pink turbinates. THROAT: No erythema or exudates. NECK: No masses, no JVD, no thyroid enlargement, no adenopathy. CHEST: No chest wall deformity. Symmetrical expansion. LUNGS: Equal air entry with no crackles, wheeze, rhonchi or dullness. CVS: Regular rate and rhythm, normal S1 and S2, no gallops, no murmurs, no rubs ABDOMEN: Soft, nontender. No hepatosplenomegaly, normal bowel sounds, no guarding or rigidity. EXTREMITIES: No clubbing, no edema, no cyanosis, 2+ pulses and upper and lower extremities. MUSCULOSKELETAL: Muscle strength and tone normal. SPINE: No scoliosis or deformity SKIN: No rashes CENTRAL NERVOUS SYSTEM: Alert and oriented -3. No focal deficits, tone is normal in all 4 extremities. PSYCHIATRIC: Alert and oriented -3. Appropriate affect. Intact judgment and insight. - Labs CBC & Chem 7: 05/28/21 07:15 05/28/21 07:15 Labs: Abnormal Lab Results - Last 24 Hours (Table) 05/28/21 05/28/21 Range/Units 07:15 07:15 D-Dimer 1.12 H (<0.60) mg/L FEU Sodium 135 L (137-145) mmol/L Glucose 107 H (74-99) mg/dL AST 68 H (14-36) U/L ALT 142 H (4-34) U/L Alkaline Phosphatase 149 H (38-126) U/L Lactate Dehydrogenase 974 H (313-618) U/L C-Reactive Protein 2.0 H (<1.0) mg/dL Total Protein 5.7 L (6.3-8.2) g/dL Albumin 2.9 L (3.5-5.0) g/dL Assessment and Plan Plan: Assessment: #1. Acute hypoxic rest to failure secondary to acute COVID-19 pneumonia, patient was already on high amounts of oxygen and requiring BiPAP support at the time of admission, she was started on Baricitinib on 05/25/2021, currently her h ypoxia has improved and patient is off the BiPAP support and is down to 4 L of oxygen #2. Chronic bronchial asthma, unspecified #3. History of fibromyalgia #4. History of GERD/reflux #5. Elevated inflammatory markers, and mildly elevated d-dimer, related to acute viral pneumonia, inflammatory markers are improving on today's labs Plan: Continue weaning FiO2, Currently down to 4 L, breathing comfortably Inflammatory markers are improving, today's chest x-ray showing possible slight improvement in the appearance of pulmonary infiltrates If patient remains stable and continues to improve may consider discharge home possibly on Sunday Continue current medical treatment I performed a history & physical examination of the patient and discussed their management with my nurse practitioner, Mee Dubon. I reviewed the nurse practitioner's note and agree with the documented findings and plan of care. Lung sounds are positive for diminished breath sounds throughout the lung hernandez . The findings and the impression was discussed with the patient. I attest to the documentation by the nurse practitioner. Time with Patient: Less than 30
--- NOTE | 2021-05-28 16:52 | PN ---
PROGRESS NOTE DATE OF SERVICE: 05/28/2021 This 55-year-old woman who was admitted with acute COVID-19 infection is also hypoxic. Patient is on 5 L nasal cannula. No chest pain. No palpitations. No fever. The most recent chest x-ray done today, reviewed personally by me, showed extensive bilateral infiltrates highly suggestive of acute COVID-[address] Reagan is following the patient closely. No chest pain. No palpitations. No fever. PHYSICAL EXAMINATION: Alert and oriented x3. Pulse 80, blood pressure 112/60, respirations 16, temperature 97.7, pulse ox 99% on 4 L. HEENT: Conjunctivae normal. NECK: No jugular venous distention. CARDIOVASCULAR: S1, S2 muffled. RESPIRATION: Breath sounds diminished at the bases. ABDOMEN: Soft. NERVOUS SYSTEM: No focal deficit. LAB STUDIES: WBC 9.3, hemoglobin 12.2. D-dimer is 1.12. Sodium 135. Other labs are noted. ASSESSMENT: 1. Acute COVID-19 infection with acute hypoxic respiratory failure, acute bilateral interstitial pneumonia. 2. Status post baricitinib. 3. Severe sepsis secondary to COVID-19 pneumonia with highly elevated inflammatory markers. 4. Elevated D-dimer without any evidence of pulmonary embolism. 5. Transaminitis, possibly secondary to sepsis. 6. Fibromyalgia. 7. Obesity. 8. Gastroesophageal reflux disease. 9. Deep vein thrombosis prophylaxis. 10.FULL CODE. RECOMMENDATIONS AND DISCUSSION: I recommend to continue current medications, continue with symptomatic treatment. Recommend repeat labs. Cultures are negative so far. Further recommendations to follow. Closely follow with Pulmonary. MMODL / IJN: [id number] /
[2021-05-29] MEDS: NON FORMULARY DRUG (Norethindrone [Camila] 0.35 MG Tablet) PO SCH (07:55)
[2021-05-29] MEDS: CHOLECALCIFEROL 25 MCG (1000 IU) TABLET PO SCH (08:08)
[2021-05-29] MEDS: ASCORBIC ACID 500 MG TAB PO SCH (08:08)
[2021-05-29] MEDS: BACLOFEN 10 MG TAB PO SCH ×3 (08:09→20:29)
[2021-05-29] MEDS: PANTOPRAZOLE 40 MG TABLET PO SCH (08:09)
[2021-05-29] MEDS: DEXAMETHASONE SOD PHOSPHATE 10 MG/ML 1 ML VIAL IV SCH (08:09)
[2021-05-29] MEDS: ALPRAZolam 0.5 MG TAB PO SCH ×3 (08:09→20:36)
[2021-05-29] MEDS: DULoxetine HCL 60 MG CAPSULE.DR PO SCH (08:09)
[2021-05-29] MEDS: ZINC SULFATE 220 MG CAP PO SCH (08:09)
[2021-05-29] MEDS: MAGNESIUM OXIDE 400 MG TAB PO SCH (08:09)
[2021-05-29] MEDS: GABAPENTIN 300 MG CAP PO SCH ×3 (08:09→20:29)
[2021-05-29] MEDS: BARICITINIB 2 MG TABLET PO SCH (08:10)
[2021-05-29] MEDS: ENOXAPARIN 40 MG/0.4 ML SYRINGE SQ SCH (08:10)
[2021-05-29] MEDS: SYMBICORT 80-4.5 MCG INHALER INHALATION SCH ×2 (08:25→20:48)
[2021-05-29 08:47] LABS: Basophils % (A) 0 %; Eosinophils # (A) 0.1 k/uL (0-0.7); Eosinophils % (A) 1 %; HCT 36.1 % (34.0-46.0); Lymphocytes # (A) 1.3 k/uL (1.0-4.8); Lymphocytes % (A) 13 %; MCH 29.5 pg (25.0-35.0); MCHC 33.1 g/dL (31.0-37.0); MCV 88.9 fL (80.0-100.0); Mean Platelet Volume 7.6; Monocytes # (A) 0.5 k/uL (0-1.0); Monocytes % (A) 5 %; Neutrophils # (A) 8.1 k/uL (1.3-7.7); Neutrophils % (A) 80 %; Platelet Count 406 k/uL (150-450); RBC 4.06 m/uL (3.80-5.40); RDW 13.5 % (11.5-15.5); WBC 10.1 k/uL (3.8-10.6)
[2021-05-29 08:59] LABS: ALT 115 U/L (4-34); AST 69 U/L (14-36); African American GFR (CKD) >90 (>60 ml/min/1.73 sqM); Albumin 2.8 g/dL (3.5-5.0); Alkaline Phosphatase 128 U/L (38-126); Anion Gap 7 mmol/L; Blood Urea Nitrogen 11 mg/dL (7-17); Calcium 8.8 mg/dL (8.4-10.2); Carbon Dioxide 24 mmol/L (22-30); Chloride 104 mmol/L (98-107); Globulin 2.8 g/dL; Glucose 120 mg/dL (74-99); Non-African American GFR(CKD) >90 (>60 ml/min/1.73 sqM); Sodium 135 mmol/L (137-145); Total Bilirubin 0.4 mg/dL (0.2-1.3); Total Protein 5.6 g/dL (6.3-8.2)
[2021-05-29] MEDS: SODIUM CHLORIDE 0.9% 1,000 ML IV SCH (12:18)
--- NOTE | 2021-05-29 12:20 | P.PN ---
Subjective Progress Note Date: 05/29/21 Principal diagnosis: Acute COVID-19 pneumonia This is a 55-year-old female patient with a history of fibromyalgia, gastroesophageal reflux disease, chronic bronchial asthma. She follows with Dr. Antony as her primary care provider. On 05/16/2021 she developed symptoms of increasing shortness of breath, cough congestion, vomiting. She was seen by her PCP and tested positive for COVID-19. She was initiated on a Medrol Dosepak and antibiotics for complaints of possible sinus infection as well. Her symptoms progressed she became more short of breath. She came in by EMS to the emergency room yesterday. Her initial O2 saturation was 81%. She was placed on 6 L of oxygen at that time. Chest x-ray showed low lung volumes with diffuse reticular and patchy opacities bilaterally. CAT scan revealed diffuse bilateral airspace disease. No pneumothorax or effusions. No evidence of pulmonary embolism. White count 4.9. Hemoglobin 16.2. Platelets 464. Lymphocytes 0.25. D-dimer 0.84. Sodium 136. Potassium 5.3. Bicarb 19. Creatinine 0.61. AST 186. ALT 183. LDH 2163. C-reactive protein 13.9. She is seen today in consultation in the emergency room. Her symptoms have progressed. She is now requiring BiPAP support 14/6 and 100% FiO2. She is tachycardic 120s-130s. Respiratory rate 26. Currently afebrile. Reevaluated today on 05/26/2021, patient remains in the ICU, we saw her yesterday on consultation for acute hypoxic respiratory failure secondary to COVID-19 pneumonia. Patient remains on BiPAP 14/7 and 50% FiO2. However will try to switch the patient to high flow airvo today if possible. Patient is on Decadron, she is also on Lovenox 40 mg subcu daily, and we started her yesterday on baricitinib. Not much of a change management manager the last 24 hours. Chest x-ray continues to show diffuse increased lung markings consistent with COVID-19 pneumonia. CBC is relatively unremarkable, she doesn't have relatively normal CBC. D-dimer is 0.91. Electrolytes are normal renal profile is normal. Liver enzymes are noted to be a bit elevated and her C-reactive protein is 5.5 and LDH is 1543. Reevaluated today on 05/27/2021, patient remains in the ICU, she is now on 8 L high flow cannula, O2 saturations 94%. Patient seems to be doing much better cl inically breathing a lot easier, intermittent cough noted, no fever no chills no hemoptysis no chest pain. CBC is relatively unremarkable. Electrolytes are normal d-dimer is 0.91. Renal profile is normal slightly elevated liver enzymes noted. LDH is down to 1159 from 1543 yesterday, C-reactive protein is down to 2.4. Chest x-ray is basically about the same, continues to have bilateral peripheral infiltrates On 05/28/2021 patient seen in follow-up on medical surgical floor, she has not required BiPAP support in the last 2 days, she is currently down to 4 L of oxygen, pulse ox is 94%, she is afebrile, hemodynamically she is stable, she's been transferred out of ICU, she is been stable clinically, she is breathing comfortably, today's chest x-ray shows possible improvement in appearance of bilateral infiltrates. She still has point nursing infusing at a rate of 75 ML per hour, patient continues on Baricitinib, Decadron 6 mg daily, and she is on prophylactic dose of Lovenox. Today's labs have been reviewed, her CBC is within normal limits, her d-dimer is 1.12, her electrolytes and renal profile were unremarkable, her LFTs are improving, her inflammatory markers are improving. On 05/29/2021 patient seen in follow-up on medical surgical floor. She is resting comfortably in bed, she's had 2 L of oxygen pulse ox is 96%, low-grade fever this morning, with a temp of 100.3F, she's been afebrile overnight, overall she is feeling better, patient has done extremely well in the last 48 hours, and her oxygen requirements have significantly improved, she remains on Decadron 6 mg daily, she is on daily dose of prophylactic Lovenox 40 mg daily, she is on COVID-19 vitamins, her yesterday's chest x-ray showed bilateral patchy airspace disease, low lung volumes, not significantly changed. Today's labs have been reviewed, white blood cell count is 10.1, hemoglobin is 12, sodium is 135, the rest of electrolytes are within normal limits, LFTs are improving, LDH and CRP are still pending. Objective - Vital Signs Vital signs: Vital Signs Temp 100.3 F H 05/29/21 10:12 Pulse 83 05/29/21 10:12 Resp 18 05/29/21 10:12 BP 111/72 05/29/21 10:12 Pulse Ox 96 05/29/21 10:12 Intake & Output 05/28/21 05/29/21 05/29/21 18:59 06:59 18:59 Intake Total 486 250 Output Total 50 Balance 486 200 Intake: Oral 486 250 Output: Urine 50 Other: Voiding Method Toilet Toilet # Voids 1 1 - Exam GENERAL EXAM: Alert, very pleasant, 55-year-old white female, currently on 2 L of oxygen with a pulse ox of 96% comfortable in no apparent distress. HEAD: Normocephalic/atraumatic. EYES: Normal reaction of pupils, equal size. Conjunctiva pink, sclera white. NOSE: Clear with pink turbinates. THROAT: No erythema or exudates. NECK: No masses, no JVD, no thyroid enlargement, no adenopathy. CHEST: No chest wall deformity. Symmetrical expansion. LUNGS: Equal air entry with no crackles, wheeze, rhonchi or dullness. CVS: Regular rate and rhythm, normal S1 and S2, no gallops, no murmurs, no rubs ABDOMEN: Soft, nontender. No hepatosplenomegaly, normal bowel sounds, no guarding or rigidity. EXTREMITIES: No clubbing, no edema, no cyanosis, 2+ pulses and upper and lower extremities. MUSCULOSKELETAL: Muscle strength and tone normal. SPINE: No scoliosis or deformity SKIN: No rashes CENTRAL NERVOUS SYSTEM: Alert and oriented -3. No focal deficits, tone is normal in all 4 extremities. PSYCHIATRIC: Alert and oriented -3. Appropriate affect. Intact judgment and insight. - Labs CBC & Chem 7: 05/29/21 08:30 05/29/21 08:29 Labs: Abnormal Lab Results - Last 24 Hours (Table) 05/29/21 05/29/21 Range/Units 08:29 08:30 Neutrophils # 8.1 H (1.3-7.7) k/uL Sodium 135 L (137-145) mmol/L Glucose 120 H (74-99) mg/dL AST 69 H (14-36) U/L ALT 115 H (4-34) U/L Alkaline Phosphatase 128 H (38-126) U/L Total Protein 5.6 L (6.3-8.2) g/dL Albumin 2.8 L (3.5-5.0) g/dL Assessment and Plan Plan: Assessment: #1. Acute hypoxic rest to failure secondary to acute COVID-19 pneumonia, patient was already on high amounts of oxygen and requiring BiPAP support at the time of admission, she was started on Baricitinib on 05/25/2021, currently her hypoxia has improved and patient is off the BiPAP support and is down to 2 L of oxygen #2. Chronic bronchial asthma, unspecified #3. History of fibromyalgia #4. History of GERD/reflux #5. Elevated inflammatory markers, and mildly elevated d-dimer, related to acute viral pneumonia, inflammatory markers are improving on today's labs Plan: Continue weaning FiO2, Currently down to 2 L, breathing comfortably Inflammatory markers are improving, follow up CXR on Sunday If patient remains stable and continues to improve may consider discharge home possibly on Sunday I performed a history & physical examination of the patient and discussed their management with my nurse practitioner, Mee Dubon. I reviewed the nurse practitioner's note and agree with the documented findings and plan of care. Lung sounds are positive for diminished breath sounds throughout the lung hernandez. The findings and the impression was discussed with the patient. I attest to the documentation by the nurse practitioner. Time with Patient: Less than 30
--- NOTE | 2021-05-29 18:55 | PN ---
PROGRESS NOTE DATE OF SERVICE: 05/29/2021 This is a 55-year-old woman who was admitted with acute COVID-19 infection with acute hypoxic respiratory failure. No chest pain. No palpitations. No fever. PHYSICAL EXAMINATION: Alert and oriented x3. The patient is running some fever. Pulse is 86, blood pressure 118/74, respiration 18, temperature 97 degrees, pulse ox 98% on room air. HEENT: Conjunctivae normal. Oral mucosa moist. NECK: No jugular venous distention. No lymph node enlargement. CARDIOVASCULAR: S1, S2, muffled. No S3, no S4, RESPIRATORY: Diminished breath sounds at the bases. A few scattered rhonchi. ABDOMEN: Soft. NERVOUS SYSTEM: No focal deficits. LABS: CBC, BMP noted. ASSESSMENT: 1. Acute COVID-19 infection with acute hypoxic respiratory failure with acute bilateral interstitial pneumonia. 2. Continued fever. 3. Status post baricitinib. 4. Severe sepsis secondary to COVID-19 pneumonia and highly elevated inflammatory markers. 5. Elevated D-dimer without any evidence of pulmonary embolism. 6. Transaminitis, possibly secondary to sepsis. 7. Fibromyalgia. 8. Obesity. 9. Gastroesophageal reflux disease. 10.Deep vein thrombosis prophylaxis. 11.FULL CODE. RECOMMENDATIONS: Recommend to continue current management and symptomatic treatment. Otherwise, at this time I would recommend repeat labs and continue the rest of the medications. Sputum culture. Guarded prognosis. Further recommendations to follow. MMODL / IJN: [id number] /
[2021-05-30] MEDS: SODIUM CHLORIDE 0.9% 1,000 ML IV SCH ×2 (07:02→10:30)
[2021-05-30 07:46] LABS: Basophils % (A) 0 %; Eosinophils # (A) 0.1 k/uL (0-0.7); Eosinophils % (A) 1 %; HCT 39.3 % (34.0-46.0); HGB 12.7 gm/dL (11.4-16.0); Lymphocytes # (A) 1.1 k/uL (1.0-4.8); Lymphocytes % (A) 15 %; MCH 29.1 pg (25.0-35.0); MCHC 32.3 g/dL (31.0-37.0); Mean Platelet Volume 7.6; Monocytes # (A) 0.5 k/uL (0-1.0); Monocytes % (A) 6 %; Neutrophils # (A) 5.9 k/uL (1.3-7.7); Neutrophils % (A) 77 %; Platelet Count 438 k/uL (150-450); RBC 4.37 m/uL (3.80-5.40); RDW 13.4 % (11.5-15.5); WBC 7.7 k/uL (3.8-10.6)
[2021-05-30] MEDS: ASCORBIC ACID 500 MG TAB PO SCH (07:47)
[2021-05-30] MEDS: DULoxetine HCL 60 MG CAPSULE.DR PO SCH (07:48)
[2021-05-30] MEDS: BACLOFEN 10 MG TAB PO SCH (07:48)
[2021-05-30] MEDS: ZINC SULFATE 220 MG CAP PO SCH (07:48)
[2021-05-30] MEDS: CHOLECALCIFEROL 25 MCG (1000 IU) TABLET PO SCH (07:48)
[2021-05-30] MEDS: MAGNESIUM OXIDE 400 MG TAB PO SCH (07:48)
[2021-05-30] MEDS: PANTOPRAZOLE 40 MG TABLET PO SCH (07:48)
[2021-05-30] MEDS: GABAPENTIN 300 MG CAP PO SCH (07:48)
[2021-05-30] MEDS: ALPRAZolam 0.5 MG TAB PO SCH (07:48)
[2021-05-30] MEDS: ENOXAPARIN 40 MG/0.4 ML SYRINGE SQ SCH (07:48)
[2021-05-30] MEDS: BARICITINIB 2 MG TABLET PO SCH (07:49)
[2021-05-30] MEDS: DEXAMETHASONE SOD PHOSPHATE 10 MG/ML 1 ML VIAL IV SCH (07:49)
[2021-05-30] MEDS: NON FORMULARY DRUG (Norethindrone [Camila] 0.35 MG Tablet) PO SCH (07:50)
[2021-05-30] MEDS: SYMBICORT 80-4.5 MCG INHALER INHALATION SCH (08:02)
[2021-05-30 08:04] LABS: ALT 183 U/L (4-34); AST 93 U/L (14-36); African American GFR (CKD) >90 (>60 ml/min/1.73 sqM); Albumin 3.2 g/dL (3.5-5.0); Albumin/Globulin Ratio 1.1; Alkaline Phosphatase 166 U/L (38-126); Anion Gap 7 mmol/L; Blood Urea Nitrogen 11 mg/dL (7-17); Calcium 9.4 mg/dL (8.4-10.2); Carbon Dioxide 29 mmol/L (22-30); Chloride 101 mmol/L (98-107); Glucose 114 mg/dL (74-99); Non-African American GFR(CKD) 87 (>60 ml/min/1.73 sqM); Potassium 4.7 mmol/L (3.5-5.1); Sodium 137 mmol/L (137-145); Total Bilirubin 0.4 mg/dL (0.2-1.3); Total Protein 6.2 g/dL (6.3-8.2)
[2021-05-30 14:05] VITALS: BP 129/84; PULSE 96; RESP 17; TEMP 96.8
--- NOTE | 2021-05-30 14:11 | P.PN ---
Subjective Progress Note Date: 05/30/21 Principal diagnosis: Acute COVID-19 pneumonia This is a 55-year-old female patient with a history of fibromyalgia, gastroesophageal reflux disease, chronic bronchial asthma. She follows with Dr. Antony as her primary care provider. On 05/16/2021 she developed symptoms of increasing shortness of breath, cough congestion, vomiting. She was seen by her PCP and tested positive for COVID-19. She was initiated on a Medrol Dosepak and antibiotics for complaints of possible sinus infection as well. Her symptoms progressed she became more short of breath. She came in by EMS to the emergency room yesterday. Her initial O2 saturation was 81%. She was placed on 6 L of oxygen at that time. Chest x-ray showed low lung volumes with diffuse reticular and patchy opacities bilaterally. CAT scan revealed diffuse bilateral airspace disease. No pneumothorax or effusions. No evidence of pulmonary embolism. White count 4.9. Hemoglobin 16.2. Platelets 464. Lymphocytes 0.25. D-dimer 0.84. Sodium 136. Potassium 5.3. Bicarb 19. Creatinine 0.61. AST 186. ALT 183. LDH 2163. C-reactive protein 13.9. She is seen today in consultation in the emergency room. Her symptoms have progressed. She is now requiring BiPAP support 14/6 and 100% FiO2. She is tachycardic 120s-130s. Respiratory rate 26. Currently afebrile. Reevaluated today on 05/26/2021, patient remains in the ICU, we saw her yesterday on consultation for acute hypoxic respiratory failure secondary to COVID-19 pneumonia. Patient remains on BiPAP 14/7 and 50% FiO2. However will try to switch the patient to high flow airvo today if possible. Patient is on Decadron, she is also on Lovenox 40 mg subcu daily, and we started her yesterday on baricitinib. Not much of a exchange engineer the last 24 hours. Chest x-ray continues to show diffuse increased lung markings consistent with COVID-19 pneumonia. CBC is relatively unremarkable, she doesn't have relatively normal CBC. D-dimer is 0.91. Electrolytes are normal renal profile is normal. Liver enzymes are noted to be a bit elevated and her C-reactive protein is 5.5 and LDH is 1543. Reevaluated today on 05/27/2021, patient remains in the ICU, she is now on 8 L high flow cannula, O2 saturations 94%. Patient seems to be doing much better cl inically breathing a lot easier, intermittent cough noted, no fever no chills no hemoptysis no chest pain. CBC is relatively unremarkable. Electrolytes are normal d-dimer is 0.91. Renal profile is normal slightly elevated liver enzymes noted. LDH is down to 1159 from 1543 yesterday, C-reactive protein is down to 2.4. Chest x-ray is basically about the same, continues to have bilateral peripheral infiltrates On 05/28/2021 patient seen in follow-up on medical surgical floor, she has not required BiPAP support in the last 2 days, she is currently down to 4 L of oxygen, pulse ox is 94%, she is afebrile, hemodynamically she is stable, she's been transferred out of ICU, she is been stable clinically, she is breathing comfortably, today's chest x-ray shows possible improvement in appearance of bilateral infiltrates. She still has point nursing infusing at a rate of 75 ML per hour, patient continues on Baricitinib, Decadron 6 mg daily, and she is on prophylactic dose of Lovenox. Today's labs have been reviewed, her CBC is within normal limits, her d-dimer is 1.12, her electrolytes and renal profile were unremarkable, her LFTs are improving, her inflammatory markers are improving. On 05/29/2021 patient seen in follow-up on medical surgical floor. She is resting comfortably in bed, she's had 2 L of oxygen pulse ox is 96%, low-grade fever this morning, with a temp of 100.3F, she's been afebrile overnight, overall she is feeling better, patient has done extremely well in the last 48 hours, and her oxygen requirements have significantly improved, she remains on Decadron 6 mg daily, she is on daily dose of prophylactic Lovenox 40 mg daily, she is on COVID-19 vitamins, her yesterday's chest x-ray showed bilateral patchy airspace disease, low lung volumes, not significantly changed. Today's labs have been reviewed, white blood cell count is 10.1, hemoglobin is 12, sodium is 135, the rest of electrolytes are within normal limits, LFTs are improving, LDH and CRP are still pending. On 05/30/2021 patient seen in follow-up on medical surgical floor, she is resting comfortably in bed, she continues to improve clinically, she is currently down to 2 L of oxygen her pulse ox 100%, his been afebrile, vital signs have been stable, she is ambulating in the room to the bathroom, tolerating activity well. No new chest x-ray today, today's lab work has been noted, CBC was within normal limits today, electrolytes and renal profile were unremarkable, LDH and CRP are pending for today, they were improving from 2 days ago. Patient remains on Baricitinib, Decadron 61 g daily, prophylactic dose of Lovenox, she is improving. She continues on COVID-19 vitamins as well. Objective - Vital Signs Vital signs: Vital Signs Temp 96.8 F L 05/30/21 13:36 Pulse 96 05/30/21 13:36 Resp 17 05/30/21 13:36 BP 129/84 05/30/21 13:36 Pulse Ox 99 05/30/21 13:36 Intake & Output 05/29/21 05/30/21 05/30/21 18:59 06:59 18:59 Intake Total 500 150 Output Total 50 Balance 450 150 Intake: Oral 500 150 Output: Urine 50 Other: Voiding Method Toilet Toilet # Voids 3 - Exam GENERAL EXAM: Alert, very pleasant, 55-year-old white female, currently on 2 L of oxygen with a pulse ox of 99% comfortable in no apparent distress. HEAD: Normocephalic/atraumatic. EYES: Normal reaction of pupils, equal size. Conjunctiva pink, sclera white. NOSE: Clear with pink turbinates. THROAT: No erythema or exudates. NECK: No masses, no JVD, no thyroid enlargement, no adenopathy. CHEST: No chest wall deformity. Symmetrical expansion. LUNGS: Equal air entry with no crackles, wheeze, rhonchi or dullness. CVS: Regular rate and rhythm, normal S1 and S2, no gallops, no murmurs, no rubs ABDOMEN: Soft, nontender. No hepatosplenomegaly, normal bowel sounds, no guarding or rigidity. EXTREMITIES: No clubbing, no edema, no cyanosis, 2+ pulses and upper and lower extremities. MUSCULOSKELETAL: Muscle strength and tone normal. SPINE: No scoliosis or deformity SKIN: No rashes CENTRAL NERVOUS SYSTEM: Alert and oriented -3. No focal deficits, tone is normal in all 4 extremities. PSYCHIATRIC: Alert and oriented -3. Appropriate affect. Intact judgment and insight. - Labs CBC & Chem 7: 05/30/21 06:33 05/30/21 06:33 Labs: Abnormal Lab Results - Last 24 Hours (Table) 05/30/21 Range/Units 06:33 Glucose 114 H (74-99) mg/dL AST 93 H (14-36) U/L ALT 183 H (4-34) U/L Alkaline Phosphatase 166 H (38-126) U/L Total Protein 6.2 L (6.3-8.2) g/dL Albumin 3.2 L (3.5-5.0) g/dL Assessment and Plan Plan: Assessment: #1. Acute hypoxic rest to failure secondary to acute COVID-19 pneumonia, patient was already on high amounts of oxygen and requiring BiPAP support at the time of admission, she was started on Baricitinib on 05/25/2021, currently her hypoxia has improved and patient is off the BiPAP support and is down to 2 L of oxygen #2. Chronic bronchial asthma, unspecified #3. History of fibromyalgia #4. History of GERD/reflux #5. Elevated inflammatory markers, and mildly elevated d-dimer, related to acute viral pneumonia, inflammatory markers are improving on today's labs Plan: Patient continues to improve Maintaining stable O2 saturations on 2 L, tolerating ambulation Vital signs have been stable, She is breathing much easier, had not utilizes BiPAP support in last few days From pulmonary perspective patient is stable for discharge home today to complete 10 day course of Decadron Obtain home oxygen assessment Patient will need to be seen in follow-up in the office in 2-3 weeks I performed a history & physical examination of the patient and discussed their management with my nurse practitioner, Mee Dubon. I reviewed the nurse practitioner's note and agree with the documented findings and plan of care. Lung sounds are positive for diminished breath sounds throughout the lung hernandez. The findings and the impression was discussed with the patient. I attest to the documentation by the nurse practitioner. Time with Patient: Less than 30
== END 2021-05-30 14:56 | disposition home or self-care (01) | DRG 871 ==
LOC: EC 17:39 → 4SSUR 20:27 → 2SICU 05-25 08:03 → 4SSUR 05-27 22:39
PROVIDERS: ADMIT Hospitalist; ATTEND Hospitalist
PROC: XW033E5 Introduction of Remdesivir Anti-infective into Peripheral Vein, Percutaneous Approach, New Technology Group 5 (ICD-10-PCS; principal; 2021-05-24)
PROC: 3E0333Z Introduction of Anti-inflammatory into Peripheral Vein, Percutaneous Approach (ICD-10-PCS; 2021-05-24)
PROC: XW0DXM6 Introduction of Baricitinib into Mouth and Pharynx, External Approach, New Technology Group 6 (ICD-10-PCS; 2021-05-25)
PROC: 05HC33Z Insertion of Infusion Device into Left Basilic Vein, Percutaneous Approach (ICD-10-PCS; 2021-05-25)
PROC: 5A09357 Assistance with Respiratory Ventilation, Less than 24 Consecutive Hours, Continuous Positive Airway Pressure (ICD-10-PCS; 2021-05-25)
PROC: 5A0945A Assistance with Respiratory Ventilation, 24-96 Consecutive Hours, High Flow/Velocity Cannula (ICD-10-PCS; 2021-05-26)
DX: A41.89 Other specified sepsis (principal); J12.82 Pneumonia due to coronavirus disease 2019; U07.1 COVID-19; J96.01 Acute respiratory failure with hypoxia; E66.9 Obesity, unspecified; J45.909 Unspecified asthma, uncomplicated; K21.9 Gastro-esophageal reflux disease without esophagitis; M79.7 Fibromyalgia; R65.20 Severe sepsis without septic shock; Z79.01 Long term (current) use of anticoagulants; Z79.51 Long term (current) use of inhaled steroids; Z79.899 Other long term (current) drug therapy; R74.01 Elevation of levels of liver transaminase levels; Z68.32 Body mass index [BMI] 32.0-32.9, adult
CPT/HCPCS: 36415; 36573; 36600; 71045; 71275; 80053; 82728; 82805; 83605; 83615; 83735; 84484; 85025; 85027; 85379; 85610; 85730; 86140; 93005; 94640; 94660; 94760; 99285

== ENCOUNTER → 2021-06-28 | Outpatient (CLI) | payer OTHER ==
--- NOTE | 2021-06-28 15:46 | CT ---
EXAMINATION TYPE: CT angio chest DATE OF EXAM: 06/28/2021 COMPARISON: Radiograph 06/28/[address] 05/24/2021 HISTORY: 55-year-old female SOB, Hx Covid, R06.02 TECHNIQUE: Contiguous axial scanning of the chest performed with IV Contrast, patient injected with 1 00 mL of Isovue 370 coronal/sagittal MIP reconstructions performed. CT DLP: 502.40 mGycm Automated exposure control for dose reduction was used. FINDINGS: Heart normal size without pericardial effusion. No flattening of the interventricular septum reflux o f contrast into the hepatic veins. Aorta normal caliber with the metatarsal vessel branching anatomy. Numerous nonenlarged and borderline size mediastinal lymph nodes are present measuring up to 1.1 cm. Right hilar lymph node measures up to 2.0 cm. Left infrahilar lymph node measures up to 1.3 cm. Some calcified lymph nodes at the left hilum compatible with prior granulomatous disease. Satisfactory opacification of the pulmonary arterial system without evidence for pulmonary embolus. Benign calcified granuloma anterior left midlung. Diffuse patchy groundglass and centrilobular ground glass with significant improvement in the bilateral consolidation seen on 05/24/2021. No pleural effusion. Small hiatal hernia. Low-attenuation hepatic parenchyma compatible with fatty infiltration. Cholecyst ectomy clips. Bones: No osseous destructive process. IMPRESSION: 1. NO EVIDENCE FOR PULMONARY EMBOLUS. 2. MEDIASTINAL AND RIGHT HILAR LYMPHADENOPATHY MEASURING UP TO 2.0 CM LIKELY REACTIVE. 6 MONTH FOLLOW -UP CT TO ENSURE RESOLUTION. 3. DIFFUSE GROUNDGLASS AND CENTRILOBULAR GROUNDGLASS. THE PREVIOUS BILATERAL AIRSPACE DISEASE SHOWS C ONSIDERABLE IMPROVEMENT. CORRELATE FOR POSSIBLE RESIDUAL VERSUS RECURRENT COVID PNEUMONIA. INTERSTITI AL PNEUMONITIS (SUCH NSIP, RB-ILD, DIP), HYPERSENSITIVITY PNEUMONITIS, AND DAH ARE SOME ADDITIONAL DIFFERENTIAL CONSIDERATIONS. 4. SMALL HIATAL HERNIA AND HEPATIC STEATOSIS.
== END | disposition home or self-care (01) ==
LOC: RADCTMAIN 14:30
PROVIDERS: ATTEND Internal Medicine
DX: R06.02 Shortness of breath (principal); R59.0 Localized enlarged lymph nodes; R91.8 Other nonspecific abnormal finding of lung field
CPT/HCPCS: 71275; Q9967

== ENCOUNTER 2022-03-27 14:25 | Emergency (ER) | payer OTHER ==
[2022-03-27] MEDS ORDERED: IPRATROPIUM-ALBUTEROL 3 ML NEB INHALATION STA (15:22)
[2022-03-27] MEDS ORDERED: SODIUM CHLORIDE 0.9% 1,000 ML IV STA (15:22)
[2022-03-27] MEDS ORDERED: FAMOTIDINE 20 MG/2 ML VIAL IV STA (15:30)
[2022-03-27] MEDS ORDERED: ONDANSETRON 4 MG/2 ML VIAL IVP STA (15:30)
[2022-03-27 15:54] LABS: Basophils % (A) 0 %; Eosinophils # (A) 0.2 k/uL (0-0.7); Eosinophils % (A) 2 %; HCT 43.5 % (34.0-46.0); HGB 14.4 gm/dL (11.4-16.0); Lymphocytes # (A) 1.2 k/uL (1.0-4.8); Lymphocytes % (A) 12 %; MCH 28.5 pg (25.0-35.0); MCV 86.3 fL (80.0-100.0); Mean Platelet Volume 7.3; Monocytes # (A) 0.5 k/uL (0-1.0); Monocytes % (A) 5 %; Neutrophils # (A) 7.9 k/uL (1.3-7.7); Neutrophils % (A) 80 %; Platelet Count 401 k/uL (150-450); RBC 5.04 m/uL (3.80-5.40); WBC 9.8 k/uL (3.8-10.6)
[2022-03-27 15:57] LABS: Appearance,Urine Cloudy (Clear); Bacteria,Urine Rare /hpf; Bilirubin,Urine Negative (Negative); Blood,Urine Moderate (Negative); Color,Urine Yellow; Glucose,Urine (UA) Negative (Negative); Ketones,Urine 4+ (Negative); Leukocyte Esterase,Urine Negative (Negative); Mucus,Urine Few /hpf; Nitrite,Urine Negative (Negative); Protein,Urine 1+ (Negative); RBC,Urine 39 /hpf (0-5); Squamous Epithelial Cell,Urine 9 /hpf (0-4); WBC,Urine 2 /hpf (0-5)
--- NOTE | 2022-03-27 16:08 | ED ---
Nausea/Vomiting/Diarrhea HPI - General Chief complaint: Nausea/Vomiting/Diarrhea Stated complaint: vomiting, diarrhea Time Seen by Provider: 03/27/22 14:58 Source: patient, family, RN notes reviewed Mode of arrival: ambulatory Limitations: no limitations - History of Present Illness Initial comments: This is a 56-year-old female who presents to the emergency department for nausea, vomiting, diarrhea, and shortness of breath. States that for the last 4 or 5 days, she has had what she feels like are asthma attacks. She gets significantly short of breath at night with associated wheezing. She tried using her inhaler without relief. She does have an associated cough with brown sputum. Over the last couple of days, she has also started to develop nausea and diarrhea. The diarrhea is described as water and she states that it is occurring multiple times each day. Denies any hematochezia. She has cramping in the lower abdomen and bilateral lower leg muscles, however she denies any other pain. Denies any fevers, chills, sore throat, palpitations, back pain, or headaches. MD complaint: nausea, vomiting, diarrhea Onset/Timin -: days(s) Description of Diarrhea: water Associated Abdominal Pain: Yes Location: diffuse Quality: cramping Associated Symptoms: cough, nausea/vomiting, shortness of breath - Related Data Home Medications Medication Instructions Recorded Confirmed Ascorbic Acid [Vitamin C] 1,000 mg PO DAILY 05/24/21 03/27/22 Baclofen 10 mg PO TID 05/24/21 03/27/22 Butalbital/Aspirin/Caffeine 1 - 2 cap PO Q6H PRN 05/24/21 03/27/22 [Jjeilvzduq-JVR-Hheldtpo Cap 50-325-40] DULoxetine HCL [Cymbalta] 60 mg PO DAILY 05/24/21 03/27/22 Gabapentin [Neurontin] 300 mg PO TID 05/24/21 03/27/22 Mometasone/Formoterol [Dulera 100 2 puff PO RT-BID 05/24/21 03/27/22 Mcg-5 Mcg Inhaler] Norethindrone [Marielena] 0.35 mg PO DAILY 05/24/21 03/27/22 Ondansetron [Zofran] 4 mg PO TID PRN 05/24/21 03/27/22 Zolpidem Tartrate [Ambien] 10 mg PO HS PRN 05/24/21 03/27/22 traMADol HCL 100 mg PO BID PRN 05/24/21 03/27/22 Albuterol Sulfate [Proair Hfa] 2 puff INHALATION RT-Q4H PRN 03/27/22 03/27/22 Cholecalciferol (Vitamin D3) 125 mcg PO DAILY 03/27/22 03/27/22 [Vitamin D3 (125 MCG = 5,000 IU)] Cyanocobalamin (Vitamin B-12) 5,000 mcg PO DAILY 03/27/22 03/27/22 [Vitamin B-12] Magnesium Oxide [Magnesium] 500 mg PO DAILY 03/27/22 03/27/22 Metoprolol Tartrate [Lopressor] 25 mg PO BID 03/27/22 03/27/22 Montelukast [Singulair] 10 mg PO HS 03/27/22 03/27/22 Omeprazole 20 mg PO BID 03/27/22 03/27/22 Zinc 50 mg PO DAILY 03/27/22 03/27/22 rOPINIRole HCL [Requip] 2 mg PO TID 03/27/22 03/27/22 Previous Rx's Medication Instructions Recorded Albuterol Nebulized [Ventolin 2.5 mg INHALATION Q4H 8 Days #150 03/27/22 Nebulized] ml Doxycycline [Vibramycin] 100 mg PO BID 5 Days #10 capsule 03/27/22 Metoclopramide [Reglan] 10 mg PO Q6H PRN #20 tab 03/27/22 Ondansetron Odt [Zofran Odt] 4 mg PO Q8HR PRN #15 tab 03/27/22 methylPREDNISolone Dose Pack 4 mg PO DIRECTED #1 packet 03/27/22 [Medrol Dose Pack] Allergies Allergy/AdvReac Type Severity Reaction Status Date / Time codeine AdvReac Rash/Hives Verified 03/27/22 19:12 Penicillins AdvReac Rash/Hives Verified 03/27/22 19:12 Review of Systems ROS Statement: Those systems with pertinent positive or pertinent negative responses have been documented in the HPI. ROS Other: All systems not noted in ROS Statement are negative. Past Medical History Past Medical History: Asthma Additional Past Medical History / Comment(s): COVID 2021 History of Any Multi-Drug Resistant Organisms: None Reported Past Surgical History: Cholecystectomy Past Anesthesia/Blood Transfusion Reactions: No Reported Reaction Past Psychological History: No Psychological Hx Reported Smoking Status: Never smoker Past Alcohol Use History: None Reported Past Drug Use History: None Reported General Exam Limitations: no limitations General appearance: alert, in distress Head exam: Present: atraumatic Eye exam: Present: normal appearance, PERRL, EOMI. Absent: scleral icterus, conjunctival injection, periorbital swelling Respiratory exam: Present: decreased breath sounds. Absent: respiratory distress, wheezes, rales, rhonchi, stridor Cardiovascular Exam: Present: normal rhythm, tachycardia, normal heart sounds. Absent: systolic murmur, diastolic murmur, rubs, gallop, clicks GI/Abdominal exam: Present: soft, hyperactive bowel sounds. Absent: distended, tenderness, guarding, rebound, rigid Neurological exam: Present: alert, oriented X3, CN II-XII intact Psychiatric exam: Present: normal affect, normal mood Skin exam: Present: warm, dry, intact, normal color. Absent: rash Course Vital Signs 03/27/22 03/27/22 03/27/22 14:33 15:53 16:04 Temperature 98.5 F Pulse Rate 103 H 80 84 Respiratory 20 Rate Blood Pressure 162/92 O2 Sat by Pulse 100 Oximetry 03/27/22 03/27/22 17:21 19:36 Temperature 98 F Pulse Rate 100 100 Respiratory 20 16 Rate Blood Pressure 102/79 144/69 O2 Sat by Pulse 99 100 Oximetry Medical Decision Making - Medical Decision Making This is a 56-year-old female who presents to the emergency department for shortness of breath, nausea, and diarrhea. She was treated with IV fluids and Zofran, however the Zofran did not adequately treat the nausea. She was subse quently given 10 mg of Reglan. She noted substantial improvement after treatment with Reglan. She was also given a DuoNeb and Decadron. Lab work revealed an elevated d-dimer. CTA of the chest for pulmonary embolism was obtained. Given that she has associated diarrhea and abdominal pain, CT of the abdomen and pelvis was obtained as well. CTA did not reveal any signs of pulmonary embolism, however it did reveal infectious/inflammatory changes in the lungs. It also noted irregular swelling of the esophagus, with the possibility of an adenocarcinoma. These findings were discussed with the patient, and she will need to follow up on the irregular esophageal findings with gastroenterology. Follow-up for Dr. Sargent was listed on her discharge forms. Patient understands the importance of following through with this. Prescriptions for Zofran and Reglan provided for any persistent nausea she has. She was also given a Medrol Dosepak and nebulized albuterol solution. She does not yet have a nebulizer, but would like to purchase one. She does have an albuterol inhaler. Additionally, because she has a known history of asthma and seems to be getting worse, as well as the possible infectious findings on the CTA, we will start her on a course of doxycycline. Prescription for doxycycline was sent to the pharmacy. Return precautions reviewed in depth, the patient is instructed to return to the emergency department with any new, worsening, or concerning symptoms. Patient verbalized understanding. This case was discussed in detail with the attending ED physician. Presentation, findings, and treatment plan discussed in detail as well. - Lab Data Result diagrams: 03/27/22 15:30 03/27/22 15:30 Lab Results 03/27/22 03/27/22 03/27/22 Range/Units 15:30 15:30 15:30 WBC 9.8 (3.8-10.6) k/uL RBC 5.04 (3.80-5.40) m/uL Hgb 14.4 (11.4-16.0) gm/dL Hct 43.5 (34.0-46.0) % MCV 86.3 (80.0-100.0) fL MCH 28.5 (25.0-35.0) pg MCHC 33.0 (31.0-37.0) g/dL RDW 14.0 (11.5-15.5) % Plt Count 401 (150-450) k/uL MPV 7.3 Neutrophils % 80 % Lymphocytes % 12 % Monocytes % 5 % Eosinophils % 2 % Basophils % 0 % Neutrophils # 7.9 H (1.3-7.7) k/uL Lymphocytes # 1.2 (1.0-4.8) k/uL Monocytes # 0.5 (0-1.0) k/uL Eosinophils # 0.2 (0-0.7) k/uL Basophils # 0.0 (0-0.2) k/uL D-Dimer 0.78 H (<0.60) mg/L FEU Sodium (137-145) mmol/L Potassium (3.5-5.1) mmol/L Chloride (98-107) mmol/L Carbon Dioxide (22-30) mmol/L Anion Gap mmol/L BUN (7-17) mg/dL Creatinine (0.52-1.04) mg/dL Est GFR (CKD-EPI)AfAm (>60 ml/min/1.73 sqM) Est GFR (CKD-EPI)NonAf (>60 ml/min/1.73 sqM) Glucose (74-99) mg/dL Calcium (8.4-10.2) mg/dL Magnesium (1.6-2.3) mg/dL Total Bilirubin (0.2-1.3) mg/dL AST (14-36) U/L ALT (4-34) U/L Alkaline Phosphatase (38-126) U/L Troponin I (0.000-0.034) ng/mL NT-Pro-B Natriuret Pep pg/mL Total Protein (6.3-8.2) g/dL Albumin (3.5-5.0) g/dL Amylase (30-110) U/L Lipase (23-300) U/L Urine Color Yellow Urine Appearance Cloudy H (Clear) Urine pH 7.0 (5.0-8.0) Ur Specific [place] 1.030 (1.001-1.035) Urine Protein 1+ H (Negative) Urine Glucose (UA) Negative (Negative) Urine Ketones 4+ H (Negative) Urine Blood Moderate H (Negative) Urine Nitrite Negative (Negative) Urine Bilirubin Negative (Negative) Urine Urobilinogen 2.0 (<2.0) mg/dL Ur Leukocyte Esterase Negative (Negative) Urine RBC 39 H (0-5) /hpf Urine WBC 2 (0-5) /hpf Ur Squamous Epith Cells 9 H (0-4) /hpf Urine Bacteria Rare H (None) /hpf Urine Mucus Few H (None) /hpf Coronavirus (PCR) (Not Detectd) Influenza Type A RNA (Not Detectd) Influenza Type B (PCR) (Not Detectd) 03/27/22 03/27/22 03/27/22 Range/Units 15:30 15:30 15:30 WBC (3.8-10.6) k/uL RBC (3.80-5.40) m/uL Hgb (11.4-16.0) gm/dL Hct (34.0-46.0) % MCV (80.0-100.0) fL MCH (25.0-35.0) pg MCHC (31.0-37.0) g/dL RDW (11.5-15.5) % Plt Count (150-450) k/uL MPV Neutrophils % % Lymphocytes % % Monocytes % % Eosinophils % % Basophils % % Neutrophils # (1.3-7.7) k/uL Lymphocytes # (1.0-4.8) k/uL Monocytes # (0-1.0) k/uL Eosinophils # (0-0.7) k/uL Basophils # (0-0.2) k/uL D-Dimer (<0.60) mg/L FEU Sodium 138 (137-145) mmol/L Potassium 4.4 (3.5-5.1) mmol/L Chloride 102 (98-107) mmol/L Carbon Dioxide 25 (22-30) mmol/L Anion Gap 11 mmol/L BUN 16 (7-17) mg/dL Creatinine 0.91 (0.52-1.04) mg/dL Est GFR (CKD-EPI)AfAm 82 (>60 ml/min/1.73 sqM) Est GFR (CKD-EPI)NonAf 71 (>60 ml/min/1.73 sqM) Glucose 92 (74-99) mg/dL Calcium 9.6 (8.4-10.2) mg/dL Magnesium 1.9 (1.6-2.3) mg/dL Total Bilirubin 1.0 (0.2-1.3) mg/dL AST 40 H (14-36) U/L ALT 26 (4-34) U/L Alkaline Phosphatase 107 (38-126) U/L Troponin I <0.012 (0.000-0.034) ng/mL NT-Pro-B Natriuret Pep 39 pg/mL Total Protein 7.6 (6.3-8.2) g/dL Albumin 4.3 (3.5-5.0) g/dL Amylase 48 (30-110) U/L Lipase 33 (23-300) U/L Urine Color Urine Appearance (Clear) Urine pH (5.0-8.0) Ur Specific [place] (1.001-1.035) Urine Protein (Negative) Urine Glucose (UA) (Negative) Urine Ketones (Negative) Urine Blood (Negative) Urine Nitrite (Negative) Urine Bilirubin (Negative) Urine Urobilinogen (<2.0) mg/dL Ur Leukocyte Esterase (Negative) Urine RBC (0-5) /hpf Urine WBC (0-5) /hpf Ur Squamous Epith Cells (0-4) /hpf Urine Bacteria (None) /hpf Urine Mucus (None) /hpf Coronavirus (PCR) (Not Detectd) Influenza Type A RNA (Not Detectd) Influenza Type B (PCR) (Not Detectd) 03/27/22 03/27/22 Range/Units 15:30 15:30 WBC (3.8-10.6) k/uL RBC (3.80-5.40) m/uL Hgb (11.4-16.0) gm/dL Hct (34.0-46.0) % MCV (80.0-100.0) fL MCH (25.0-35.0) pg MCHC (31.0-37.0) g/dL RDW (11.5-15.5) % Plt Count (150-450) k/uL MPV Neutrophils % % Lymphocytes % % Monocytes % % Eosinophils % % Basophils % % Neutrophils # (1.3-7.7) k/uL Lymphocytes # (1.0-4.8) k/uL Monocytes # (0-1.0) k/uL Eosinophils # (0-0.7) k/uL Basophils # (0-0.2) k/uL D-Dimer (<0.60) mg/L FEU Sodium (137-145) mmol/L Potassium (3.5-5.1) mmol/L Chloride (98-107) mmol/L Carbon Dioxide (22-30) mmol/L Anion Gap mmol/L BUN (7-17) mg/dL Creatinine (0.52-1.04) mg/dL Est GFR (CKD-EPI)AfAm (>60 ml/min/1.73 sqM) Est GFR (CKD-EPI)NonAf (>60 ml/min/1.73 sqM) Glucose (74-99) mg/dL Calcium (8.4-10.2) mg/dL Magnesium (1.6-2.3) mg/dL Total Bilirubin (0.2-1.3) mg/dL AST (14-36) U/L ALT (4-34) U/L Alkaline Phosphatase (38-126) U/L Troponin I (0.000-0.034) ng/mL NT-Pro-B Natriuret Pep pg/mL Total Protein (6.3-8.2) g/dL Albumin (3.5-5.0) g/dL Amylase (30-110) U/L Lipase (23-300) U/L Urine Color Urine Appearance (Clear) Urine pH (5.0-8.0) Ur Specific [place] (1.001-1.035) Urine Protein (Negative) Urine Glucose (UA) (Negative) Urine Ketones (Negative) Urine Blood (Negative) Urine Nitrite (Negative) Urine Bilirubin (Negative) Urine Urobilinogen (<2.0) mg/dL Ur Leukocyte Esterase (Negative) Urine RBC (0-5) /hpf Urine WBC (0-5) /hpf Ur Squamous Epith Cells (0-4) /hpf Urine Bacteria (None) /hpf Urine Mucus (None) /hpf Coronavirus (PCR) Not Detected (Not Detectd) Influenza Type A RNA Not Detected (Not Detectd) Influenza Type B (PCR) Not Detected (Not Detectd) - EKG Data EKG Comments: Sinus tachycardia. Ventricular rate 102 bpm, NV interval 148 ms, QRS duration 86 ms, QTC 410 ms. - Radiology Data Radiology results: report reviewed, image reviewed Disposition Clinical Impression: Asthma exacerbation, Diarrhea Disposition: HOME SELF-CARE Instructions (If sedation given, give patient instructions): Asthma (ED), Acute Diarrhea (ED), How to Use a Nebulizer (ED) Additional Instructions: Return to the emergency department with any new, worsening, or concerning symptoms. Take the doxycycline and Medrol Dosepak as prescribed. Take the Zofran or Reglan as needed for nausea and vomiting. Use the albuterol nebulizer solution as needed for shortness of breath, up to 3-4x daily. You will need to purchase a nebulizer machine. Contact Dr. Sargent, gastroenterology, as listed below for a follow-up on the abnormalities of your esophagus that was evident on the imaging. Prescriptions: methylPREDNISolone Dose Pack [Medrol Dose Pack] 4 mg PO DIRECTED #1 packet Metoclopramide [Reglan] 10 mg PO Q6H PRN #20 tab PRN Reason: Nausea And Vomiting Albuterol Nebulized [Ventolin Nebulized] 2.5 mg INHALATION Q4H 8 Days #150 ml Doxycycline [Vibramycin] 100 mg PO BID 5 Days #10 capsule Ondansetron Odt [Zofran Odt] 4 mg PO Q8HR PRN #15 tab PRN Reason: Nausea And Vomiting Is patient prescribed a controlled substance at d/c from ED?: No Referrals: Dot Cano DO [Primary Care Provider] - 1-2 days Rosey Sargent MD [STAFF PHYSICIAN] - 1-2 days
[2022-03-27 16:12] LABS: Albumin 4.3 g/dL (3.5-5.0); Calcium 9.6 mg/dL (8.4-10.2); Magnesium 1.9 mg/dL (1.6-2.3); Potassium 4.4 mmol/L (3.5-5.1); Total Protein 7.6 g/dL (6.3-8.2)
--- NOTE | 2022-03-27 17:09 | XR ---
EXAMINATION TYPE: XR chest 2V DATE OF EXAM: 03/27/2022 4:24 PM COMPARISON: Chest radiographs from 05/28/2021 TECHNIQUE: XR chest 2V Frontal and lateral views of the chest. CLINICAL INDICATION:Female, 56 years old with history of Shortness of breath; FINDINGS: Lungs/Pleura: There is no evidence of pleural effusion, focal consolidation, or pneumothorax. Pulmonary vascularity: Unremarkable. Heart/mediastinum: Cardiomediastinal silhouette is unremarkable. Musculoskeletal: No acute osseous pathology. IMPRESSION: No acute cardiopulmonary disease/process.
[2022-03-27 17:22] VITALS: PULSE 100
[2022-03-27] MEDS ORDERED: METOCLOPRAMIDE 5 MG/ML 2 ML VIAL IVP STA (17:23)
--- NOTE | 2022-03-27 18:55 | CT ---
EXAMINATION TYPE: CT abdomen pelvis w con CT DLP: combined 2228.9 mGycm, Automated exposure control for dose reduction was used. DATE OF EXAM: 03/27/2022 6:12 PM COMPARISON: CTA chest of the same date. CLINICAL INDICATION:Female, 56 years old with history of diarrhea, abdominal pain, nonlocalized; TECHNIQUE: Standard CT of the abdomen and pelvis following the administration of 100 cc of Isovue 3 00 IV contrast material. Coronal and sagittal reformats were performed. FINDINGS: LOWER CHEST: Please refer to dedicated CTA chest the same day for findings. ABDOMEN LIVER: Diffusely hypoattenuating parenchyma. No suspicious lesion. GALLBLADDER AND BILE DUCTS: The gallbladder is surgically absent. No biliary ductal dilatation. PANCREAS: Unremarkable. SPLEEN: A few punctate calcified granulomas. Nonenlarged. ADRENAL GLANDS: Unremarkable. KIDNEYS AND URETERS: No evidence of hydronephrosis or renal calculus. Left lower pole 1.7 cm cyst. Ki dneys enhance symmetrically. PELVIS BLADDER: Incompletely distended but grossly unremarkable. REPRODUCTIVE: 1.1 cm enhancing lesion emanating from the anterior uterine fundus likely representing a fibroid. ABDOMEN & PELVIS STOMACH AND BOWEL: Small hiatal hernia, duodenum is unremarkable. Scattered colonic diverticulosis wi thout evidence for acute diverticulitis. The appendix is within normal limits. No focal wall thickeni ng or surrounding inflammatory changes. No evidence of bowel obstruction. PERITONEUM: No evidence of pneumoperitoneum or free fluid. VASCULATURE: No evidence of aortic aneurysm. MUSCULOSKELETAL: No acute osseous abnormalities. Degenerative changes of the lumbar spine at L4-L5 an d L5-S1 with disc space narrowing, endplate sclerosis, subchondral cystic formation, vacuum disc dise ase, and anterior asbestosis. LYMPH NODES: No gross evidence for lymphadenopathy. SOFT TISSUE/ABDOMINAL WALL: Small fat filled umbilical hernia. IMPRESSION: No acute abdominal/pelvic process.
--- NOTE | 2022-03-27 18:55 | CT ---
EXAMINATION TYPE: CT chest angio for PE CT DLP: combined 2228.9 mGycm, Automated exposure control for dose reduction was used. DATE OF EXAM: 03/27/2022 6:11 PM COMPARISON: Chest radiograph from same day. Multiple CTs of the chest with most recent on . CLINICAL INDICATION:Female, 56 years old with history of Shortness of breath, elevated d-dimer; SOB TECHNIQUE/CONTRAST: CTA scan of the thorax is performed with IV Contrast, patient injected with 100 mL of Isovue 370, pul monary embolism protocol. MIP images are created and reviewed. FINDINGS: Pulmonary Artery: There is no evidence for a filling defect within the pulmonary vasculature to sugge st acute pulmonary embolism. The pulmonary artery is of normal size. Lungs/Pleura: Scattered subtle reticular densities are seen throughout the lungs Airway: Large airways are patent. Heart: Heart is within normal limits for size. Vasculature: No evidence of aortic aneurysm. Mediastinum: No gross evidence of adenopathy. Irregular eccentric wall thickening of the the distal e sophagus measuring at least 12 x 13 mm. Musculoskeletal: No acute osseous abnormalities Soft Tissues: Unremarkable. Lower neck: No significant findings. Upper Abdomen: Diffuse low-attenuation to the liver parenchyma. Gallbladder surgically absent. IMPRESSION: 1. No evidence of pulmonary embolism. 2. Scattered subtle reticular nodularity is correlate for an infectious/inflammatory process. 3. Irregular distal esophageal wall thickening, while this may represent hiatal hernia underlying ne oplasm is not entirely ruled out. Direct visualization recommended to rule out underlying adenocarcin susie. 4. Hepatic steatosis.
[2022-03-27] MEDS ORDERED: DEXAMETHASONE SOD PHOSPHATE 10 MG/ML 1 ML VIAL IVP STA (19:29)
[2022-03-27 19:37] VITALS: BP 144/69; RESP 16; TEMP 98
== END 2022-03-27 19:49 | disposition home or self-care (01) ==
LOC: EC 14:25
DX: J45.901 Unspecified asthma with (acute) exacerbation (principal); R19.7 Diarrhea, unspecified; R11.2 Nausea with vomiting, unspecified; Z20.822 Contact with and (suspected) exposure to COVID-19; Z86.16 Personal history of COVID-19; Z88.0 Allergy status to penicillin; Z88.5 Allergy status to narcotic agent; Z79.899 Other long term (current) drug therapy
CPT/HCPCS: 36415; 94640; 93005; 85379; 83880; 80053; 82150; 83690; 83735; 84484; 85025; 81001; 87502; 87635; 71046; 71275; 74177; 99285; 96374; 96375; 96361; J1100; J2765; J2405; Q9967

== ENCOUNTER 2022-07-07 06:39 | Day surgery (SDC) | payer OTHER ==
[2022-07-05 15:35] VITALS: BMI 30.5
[~2022-07-07 06:39] MED LIST: LACTATED RINGERS 1,000 ML IV SCH
[2022-07-07 07:02] VITALS: RESP 16; TEMP 96.9
[2022-07-07] MEDS ORDERED: PROPOFOL 10 MG/ML 20 ML VIAL IV ONE (08:07)
[2022-07-07] MEDS ORDERED: LIDOCAINE 2% INJ 20 MG/ML (2 ML VIAL) ONE (08:07)
--- NOTE | 2022-07-07 08:34 | P.PCN ---
Date of Procedure: 07/07/22 Procedure(s) Performed: Brief history: Patient is a pleasant 56-year-old pleasant white female scheduled for an elective upper endoscopy as well as colonoscopy as a part of evaluation of GERD and screening for colon cancer. She is been complaint of intermittent dysphagia to solids. Presently on omeprazole 20 mg daily. Procedure performed: Esophagogastroduodenoscopy with biopsy Colonoscopy Preoperative diagnosis: GERD/intermittent dysphagia to solids Screening for colon cancer Anesthesia: MAC Procedure: After informed consent was obtained from the patient was brought into the endoscopy unit and IV sedation was administered by anesthesia under continuous monitoring. Initially upper endoscopy was done. The Olympus GF 160 video endoscope was inserted inserted into the mouth and esophagus intubated without any difficulty and was gradually advanced into the stomach and duodenum and car efully examined. The bulb and second part of the duodenum appeared normal. The scope was then withdrawn into the stomach adequately insufflated with air and upon careful examination the antrum had patchy areas of erythema which was biopsied. Mucosa of the body, cardia and fundus appeared normal. The scope was then withdrawn into the esophagus. Moderate size hiatal hernia noted. The GE junction was located at 32 cm to the incisors. It appeared regular with no erythema erosions or ulcerations. Rest of the esophagus appeared normal. Patient tolerated the procedure well. At this time the patient continued to remain sedation. Initial digital rectal examination was normal. Olympus CF 160 video colonoscope was then inserted into the rectum and gradually advanced to the cecum without any difficulty. Careful examination was performed as the scope was gradually being withdrawn. The prep was excellent. The cecum, ascending colon, transverse colon, descending colon, sigmoid colon and rectum appeared normal. Retroflexion was performed in the rectum and no lesions were noted. Patient tolerated the procedure well. Impression: 1. Upper endoscopy revealed moderate size hiatal hernia, mild antral gastritis and no evidence of esophagitis or esophageal stricture 2. Colonoscopy was within normal limits with no evidence of colorectal neoplasia Recommendations: Findings of this examination were discussed with the patient as well as her family. She was advised to follow with the biopsy results. Continue with omeprazole 20 mg daily half hour before dinner and had 20 mg at bedtime as needed for nocturnal heartburn. Recommend a repeat screening colonoscopy in 10 years.(
[2022-07-07 08:55] VITALS: BP 117/74; PULSE 84
== END 2022-07-07 09:17 | disposition home or self-care (01) ==
LOC: ORWHC2ENDO 06:39
PROVIDERS: ATTEND Internal Medicine Gastroenterology
DX: Z12.11 Encounter for screening for malignant neoplasm of colon (principal); K29.50 Unspecified chronic gastritis without bleeding; K21.9 Gastro-esophageal reflux disease without esophagitis; I10 Essential (primary) hypertension; J45.909 Unspecified asthma, uncomplicated; F41.9 Anxiety disorder, unspecified; Z88.0 Allergy status to penicillin; Z88.5 Allergy status to narcotic agent
CPT/HCPCS: 88305; 43239; G0121; J2704; J2001; 45378

== ENCOUNTER 2023-09-20 09:40 | Observation (INO) | payer OTHER ==
--- NOTE | 2023-09-20 10:30 | XR ---
EXAMINATION TYPE: XR chest 2V DATE OF EXAM: 09/20/2023 COMPARISON: 03/27/2022 HISTORY: 58-year-old female with dysrhythmia TECHNIQUE: AP and lateral views FINDINGS: The cardiomediastinal silhouette, aorta, and pulmonary vasculature are within normal limits. Lungs an d pleural spaces are clear. IMPRESSION: No acute cardiopulmonary process.
[2023-09-20 10:36] LABS: INR 0.9 (<1.2); Partial Thromboplastin Time 23.4 sec (22.0-30.0)
[2023-09-20 10:49] LABS: ALT 29 U/L (4-34); AST 37 U/L (14-36); African American GFR (CKD) 80 (>60 ml/min/1.73 sqM); Albumin 4.8 g/dL (3.5-5.0); Alkaline Phosphatase 125 U/L (38-126); Anion Gap 13 mmol/L; Blood Urea Nitrogen 13 mg/dL (7-17); Calcium 10.6 mg/dL (8.4-10.2); Carbon Dioxide 22 mmol/L (22-30); Chloride 106 mmol/L (98-107); Glucose 109 mg/dL (74-99); Non-African American GFR(CKD) 69 (>60 ml/min/1.73 sqM); Potassium 4.4 mmol/L (3.5-5.1); Sodium 141 mmol/L (137-145); Total Protein 8.3 g/dL (6.3-8.2)
[2023-09-20 10:50] LABS: Basophils % (A) 0 %; Eosinophils # (A) 0.1 k/uL (0-0.7); Eosinophils % (A) 0 %; HCT 47.3 % (34.0-46.0); Lymphocytes # (A) 1.3 k/uL (1.0-4.8); Lymphocytes % (A) 9 %; MCH 29.4 pg (25.0-35.0); MCHC 33.8 g/dL (31.0-37.0); Mean Platelet Volume 7.7; Monocytes # (A) 0.7 k/uL (0-1.0); Monocytes % (A) 4 %; Neutrophils % (A) 86 %; Platelet Count 356 k/uL (150-450); RBC 5.43 m/uL (3.80-5.40); RDW 13.7 % (11.5-15.5); WBC 15.2 k/uL (3.8-10.6)
[2023-09-20] MEDS ORDERED: ASPIRIN 81 MG PO STA (10:51)
--- NOTE | 2023-09-20 10:55 | ED ---
General Adult HPI - General Chief complaint: Shortness of Breath Stated complaint: SOB Time Seen by Provider: 09/20/23 09:49 Source: patient Mode of arrival: ambulatory Limitations: no limitations - History of Present Illness Initial comments: Dictation was produced using [employer] dictation software. please excuse any grammatical, word or spelling errors. Chief Complaint: 58-year-old female presents to the emergency department for shortness of breath History of Present Illness: Patient is a 58-year-old female she has a past medical history of asthma. States she was short of breath give herself a breathing treatment and states that did not really help with her breathing. She feels short of breath does report palpitations. No chest pain. Patient denies any history of dysrhythmia. The ROS documented in this emergency department record has been reviewed and confirmed by me. Those systems with pertinent positive or negative responses have been documented in the HPI. All other systems are other negative and/or noncontributory. - Related Data Home Medications Medication Instructions Recorded Confirmed Ascorbic Acid [Vitamin C] 1,000 mg PO DAILY 05/24/21 07/05/22 Baclofen 10 mg PO TID 05/24/21 07/05/22 Butalbital/Aspirin/Caffeine 1 - 2 cap PO Q6H PRN 05/24/21 07/05/22 [Rdxannkzoc-KAT-Ixmqlyul Cap 50-325-40] DULoxetine HCL [Cymbalta] 60 mg PO DAILY 05/24/21 07/05/22 Gabapentin [Neurontin] 300 mg PO TID 05/24/21 07/05/22 Mometasone/Formoterol [Dulera 100 2 puff PO RT-BID 05/24/21 07/05/22 Mcg-5 Mcg Inhaler] Norethindrone [Marielena] 0.35 mg PO DAILY 05/24/21 07/05/22 Zolpidem Tartrate [Ambien] 10 mg PO HS PRN 05/24/21 07/05/22 traMADol HCL 100 mg PO BID PRN 05/24/21 07/05/22 Albuterol Sulfate [Proair Hfa] 2 puff INHALATION RT-Q4H PRN 03/27/22 07/05/22 Cholecalciferol (Vitamin D3) 125 mcg PO DAILY 03/27/22 07/05/22 [Vitamin D3 (125 MCG = 5,000 IU)] Cyanocobalamin (Vitamin B-12) 5,000 mcg PO DAILY 03/27/22 07/05/22 [Vitamin B-12] Magnesium Oxide [Magnesium] 500 mg PO DAILY 03/27/22 07/05/22 Metoprolol Tartrate [Lopressor] 25 mg PO BID 03/27/22 07/05/22 Montelukast [Singulair] 10 mg PO HS 03/27/22 07/05/22 Omeprazole 20 mg PO BID 03/27/22 07/05/22 Zinc 50 mg PO DAILY 03/27/22 07/05/22 rOPINIRole HCL [Requip] 2 mg PO TID 03/27/22 07/05/22 Previous Rx's Medication Instructions Recorded Albuterol Nebulized [Ventolin 2.5 mg INHALATION Q4H 8 Days #150 03/27/22 Nebulized] ml Metoclopramide [Reglan] 10 mg PO Q6H PRN #20 tab 03/27/22 Ondansetron Odt [Zofran Odt] 4 mg PO Q8HR PRN #15 tab 03/27/22 Allergies Allergy/AdvReac Type Severity Reaction Status Date / Time codeine AdvReac Rash/Hives Verified 07/07/22 06:53 Penicillins AdvReac Rash/Hives Verified 07/07/22 06:53 Review of Systems ROS Statement: Those systems with pertinent positive or pertinent negative responses have been documented in the HPI. ROS Other: All systems not noted in ROS Statement are negative. Past Medical History Past Medical History: Asthma Additional Past Medical History / Comment(s): HX HIATAL HERNIA. FREQUENT NAUSEA POST COVID MAY 2021. HYPOGLYCEMIA. fibromygia History of Any Multi-Drug Resistant Organisms: None Reported Past Surgical History: Cholecystectomy Additional Past Surgical History / Comment(s): REPAIR RT HAND INJURY. CYSTS R EMOVED FROM OVARIES Past Anesthesia/Blood Transfusion Reactions: Postoperative Nausea & Vomiting (PONV) Additional Past Anesthesia/Blood Transfusion Reaction / Comment(s): SLOW TO WAKE UP Past Psychological History: Anxiety Smoking Status: Never smoker - Past Family History Mother Family Medical History: No Reported History General Exam - General Exam Comments Initial Comments: PHYSICAL EXAM: General Impression: Alert and oriented x3, not in acute distress HEENT: Normocephalic atraumatic, extra-ocular movements intact, pupils equal and reactive to light bilaterally, mucous membranes moist. Cardiovascular: Tachycardic Chest: Able to complete full sentences, no retractions, no tachypnea Abdomen: abdomen soft, non-tender, non-distended, no organomegaly Musculoskeletal: Pulses present and equal in all extremities, no peripheral edema Motor: no focal deficits noted Neurological: CN II-XII grossly intact, no focal motor or sensory deficits noted Skin: Intact with no visualized rashes Psych: Normal affect and mood Limitations: no limitations Course Vital Signs 09/20/23 09/20/23 09/20/23 09:42 10:00 10:30 Temperature 98 F Pulse Rate 140 H 108 H 101 H Respiratory 24 22 22 Rate Blood Pressure 143/90 156/92 141/81 O2 Sat by Pulse 100 98 97 Oximetry 09/20/23 09/20/23 09/20/23 10:39 11:00 11:30 Temperature Pulse Rate 112 H 101 H Respiratory 22 22 20 Rate Blood Pressure 144/91 150/87 O2 Sat by Pulse 99 100 Oximetry EKG Findings - EKG Comments: EKG Findings:: My EKG interpretation: Ventricular rate 121, sinus tachycardia,. 141, QRS 77, QTc 3 4. No MI prolongation, no QTC prolongation, no ST or T-wave changes noted. Overall this EKG is nonspecific. There are multiple PVCs Medical Decision Making - Medical Decision Making Was pt. sent in by a medical professional or institution (, PA, TELE TECH, urgent care, hospital, or assisted...) When possible be specific @ -No Did you speak to anyone other than the patient for history (EMS, parent, family, police, friend...)? What history was obtained from this source @ -No Did you review nursing and triage notes (agree or disagree)? Why? @ -I reviewed and agree with nursing and triage notes Were old charts reviewed (outside hosp., previous admission, EMS record, old EKG, old radiological studies, urgent care reports/EKG's, assisted records)? Report findings @ -No old charts were reviewed Differential Diagnosis (chest pain, altered mental status, abdominal pain women, abdominal pain men, vaginal bleeding, musculoskeletal, weakness, fever, dyspnea, syncope, headache, dizziness, GI bleed, back pain, seizure, CVA, palpatations, mental health)? @ -Differential Chest Pain: Stable Angina, Unstable Angina, STEMI, NSTEMI Aortic Dissection, Pneumothorax, Musculoskeletal, Esophageal Spasm GERD, Cholecystitis, Pancreatitis, Zoster, this is not meant to be an all-inclusive list. Differential Palpitations: Ventricular arrhythmias, atrial arrhythmias, myocardial infarction, anemia, thyrotoxicosis, electrolyte imbalance, hypokalemia, pulmonary embolism, pulmonary disease, drugs, alcohol, anxiety, stress.... This is not meant to be an all-inclusive list. EKG interpreted by me (3pts min.). @ -See above X-rays interpreted by me (1pt min.). @ -Chest x-ray is unremarkable CT interpreted by me (1pt min.). @ -CT angiography of the chest shows no acute pulmonary embolism U/S interpreted by me (1pt. min.). @ -None done What testing was considered but not performed or refused? (CT, X-rays, U/S, labs)? Why? @ -None What meds were considered but not given or refused? Why? @ -None Did you discuss the management of the patient with other professionals (professionals i.e. , PA, TELE TECH, lab, RT, psych nurse, medical social worker, information assurance officer, teacher, youth officer, director of casework services)? Give summary @ -Case discussed with hospitalist for admission Was smoking cessation discussed for >3mins.? @ -No Was critical care preformed (if so, how long)? @ -No Were there social determinants of health that impacted care today? How? (Home lessness, low income, unemployed, alcoholism, drug addiction, transportation, low edu. Level, literacy, decrease access to med. care, residential, rehab)? @ -No Was there de-escalation of care discussed even if they declined (Discuss DNR or withdrawal of care, Hospice)? DNR status @ -No What co-morbidities impacted this encounter? (DM, HTN, Smoking, COPD, CAD, Cancer, CVA, ARF, Chemo, Hep., AIDS, mental health diagnosis, sleep apnea, morbid obesity)? @ -None Was patient admitted / discharged? Hospital course, mention meds given and route, prescriptions, significant lab abnormalities, going to OR and other pertinent info. @ -58-year-old female presents emergency department with acute dyspnea, pa lpitations and chest pain. Vital signs are stable. Symptoms are atypical chest pain with typical features. Patient having multiple incidences of V. tach sometimes and every other beat pattern. No signs of V. tach however given the frequency of PVCs there is concern that patient having pathologic palpitations. Furthermore she is having associated chest pain. X-ray CT is negative. Patient on aspirin will be admitted with consultation to cardiology. Undiagnosed new problem with uncertain prognosis? @ -No Drug Therapy requiring intensive monitoring for toxicity (Heparin, Nitro, Insulin, Cardizem)? @ -No Were any procedures done? @ -No Diagnosis/symptom? Acute, or Chronic, or Acute on Chronic? Uncomplicated (without systemic symptoms) or Complicated (systemic symptoms)? @ -Chest pain, palpitations Side effects of treatment? @ -No Exacerbation, Progression, or Severe Exacerbation? @ -No Poses a threat to life or bodily function? How? (Chest pain, [place], SC, pneumonia, PE, COPD, DKA, ARF, appy, cholecystitis, CVA, Diverticulitis, Homicidal, Suicidal, threat to staff... and all critical care pts) @ -yes - Lab Data Result diagrams: 09/20/23 10:13 09/20/23 10:13 Lab Results 09/20/23 09/20/23 09/20/23 Range/Units 10:13 10:13 10:13 WBC 15.2 H (3.8-10.6) k/uL RBC 5.43 H (3.80-5.40) m/uL Hgb 16.0 (11.4-16.0) gm/dL Hct 47.3 H (34.0-46.0) % MCV 87.0 (80.0-100.0) fL MCH 29.4 (25.0-35.0) pg MCHC 33.8 (31.0-37.0) g/dL RDW 13.7 (11.5-15.5) % Plt Count 356 (150-450) k/uL MPV 7.7 Neutrophils % 86 % Lymphocytes % 9 % Monocytes % 4 % Eosinophils % 0 % Basophils % 0 % Neutrophils # 13.0 H (1.3-7.7) k/uL Lymphocytes # 1.3 (1.0-4.8) k/uL Monocytes # 0.7 (0-1.0) k/uL Eosinophils # 0.1 (0-0.7) k/uL Basophils # 0.0 (0-0.2) k/uL PT 10.0 (10.0-12.5) sec INR 0.9 (<1.2) APTT 23.4 (22.0-30.0) sec D-Dimer 0.81 H (<0.60) mg/L FEU Sodium 141 (137-145) mmol/L Potassium 4.4 (3.5-5.1) mmol/L Chloride 106 (98-107) mmol/L Carbon Dioxide 22 (22-30) mmol/L Anion Gap 13 mmol/L BUN 13 (7-17) mg/dL Creatinine 0.93 (0.52-1.04) mg/dL Est GFR (CKD-EPI)AfAm 80 (>60 ml/min/1.73 sqM) Est GFR (CKD-EPI)NonAf 69 (>60 ml/min/1.73 sqM) Glucose 109 H (74-99) mg/dL Calcium 10.6 H (8.4-10.2) mg/dL Magnesium 2.0 (1.6-2.3) mg/dL Total Bilirubin 1.0 (0.2-1.3) mg/dL AST 37 H (14-36) U/L ALT 29 (4-34) U/L Alkaline Phosphatase 125 (38-126) U/L Troponin I (0.000-0.034) ng/mL Total Protein 8.3 H (6.3-8.2) g/dL Albumin 4.8 (3.5-5.0) g/dL 09/20/23 Range/Units 10:13 WBC (3.8-10.6) k/uL RBC (3.80-5.40) m/uL Hgb (11.4-16.0) gm/dL Hct (34.0-46.0) % MCV (80.0-100.0) fL MCH (25.0-35.0) pg MCHC (31.0-37.0) g/dL RDW (11.5-15.5) % Plt Count (150-450) k/uL MPV Neutrophils % % Lymphocytes % % Monocytes % % Eosinophils % % Basophils % % Neutrophils # (1.3-7.7) k/uL Lymphocytes # (1.0-4.8) k/uL Monocytes # (0-1.0) k/uL Eosinophils # (0-0.7) k/uL Basophils # (0-0.2) k/uL PT (10.0-12.5) sec INR (<1.2) APTT (22.0-30.0) sec D-Dimer (<0.60) mg/L FEU Sodium (137-145) mmol/L Potassium (3.5-5.1) mmol/L Chloride (98-107) mmol/L Carbon Dioxide (22-30) mmol/L Anion Gap mmol/L BUN (7-17) mg/dL Creatinine (0.52-1.04) mg/dL Est GFR (CKD-EPI)AfAm (>60 ml/min/1.73 sqM) Est GFR (CKD-EPI)NonAf (>60 ml/min/1.73 sqM) Glucose (74-99) mg/dL Calcium (8.4-10.2) mg/dL Magnesium (1.6-2.3) mg/dL Total Bilirubin (0.2-1.3) mg/dL AST (14-36) U/L ALT (4-34) U/L Alkaline Phosphatase (38-126) U/L Troponin I <0.012 (0.000-0.034) ng/mL Total Protein (6.3-8.2) g/dL Albumin (3.5-5.0) g/dL Disposition Clinical Impression: Palpitations, Congestive heart failure Disposition: ADMITTED IP TO THIS [facility] Condition: Fair Referrals: Dot Cano DO [Primary Care Provider] - 1-2 days Decision Time: 12:50
--- NOTE | 2023-09-20 11:59 | CT ---
CTA CHEST EXAMINATION TYPE: CT angio chest DATE OF EXAM: 09/20/2023 INDICATION: elevated d-dimer, rule out PE CT DLP: 574.5 mGycm, Automated exposure control for dose reduction was used. CONTRAST: Patient injected with 100 mL of Isovue 370. COMPARISON: 06/28/2021 TECHNIQUE: CT of the chest is performed on a spiral scan at 2 mm thick sections. Study is performed with intravenous contrast timed for evaluation for pulmonary embolism. This will limit additional po rtions of the evaluation. 3-D MIP images reconstructed by the technologist are reviewed on the compu ter in the coronal and sagittal planes. FINDINGS: No persistent filling defects are evident to suggest an acute pulmonary embolism. No mediastinal or hilar adenopathy enlarged by CT criteria is evident. Prior adenopathy prominence h as resolved. The ascending aorta diameter at the level of the main pulmonary artery is 2.8 cm. The main pulmonary artery diameter at the bifurcation is 2.2 cm. Small hiatal hernia is present. Lung windows are clear. Limited CT sections were through the upper abdomen. There is moderate fatty infiltration of the live r. Small cyst at the mid to inferior pole left kidney. IMPRESSION: 1. No acute pulmonary embolism. 2. No acute pulmonary process. 3. Moderate fatty infiltration of the liver 4. Small hiatal hernia
[2023-09-20] MEDS ORDERED: NITROGLYCERIN SL TABS 0.4 MG TAB SUBLINGUAL PRN (12:50)
[2023-09-20] MEDS ORDERED: ONDANSETRON ODT 4 MG TAB PO PRN (13:30)
[2023-09-20] MEDS ORDERED: polyethylene glycoL 3350 17 GM POWD.PACK PO PRN (13:30)
[2023-09-20] MEDS ORDERED: ALBUTEROL NEBULIZED 2.5 MG/3 ML INHALATION PRN ×2 (13:30→13:32)
[2023-09-20] MEDS ORDERED: ZOLPIDEM 5 MG TAB PO PRN (13:30)
[2023-09-20] MEDS ORDERED: BACLOFEN 10 MG TAB PO PRN (13:30)
[2023-09-20] MEDS ORDERED: SUMAtriptan succinate 50 MG TAB PO PRN (13:30)
[2023-09-20] MEDS ORDERED: KETOTIFEN 0.025% OPHTH DROPS 5 ML BTL BOTH EYES PRN (13:30)
[2023-09-20] MEDS ORDERED: traMADol 50 MG TAB PO PRN (13:30)
[2023-09-20] MEDS ORDERED: ACETAMINOPHEN TAB 325 MG TAB PO PRN (13:32)
[2023-09-20] MEDS ORDERED: BENZONATATE 100 MG CAP PO PRN (13:32)
[2023-09-20] MEDS ORDERED: NALOXONE 0.4 MG/ML 1 ML VIAL IVP PRN (13:32)
[2023-09-20] MEDS: SODIUM CHLORIDE 0.45% 1,000 ML IV SCH (14:14)
[2023-09-20] MEDS: PANTOPRAZOLE 40 MG/10 ML VIAL IVP SCH (14:15)
[2023-09-20] MEDS: AZITHROMYCIN 500 MG TAB PO SCH (14:17)
[2023-09-20] MEDS: METOPROLOL SUCCINATE (ER) 25 MG TAB.ER.24H PO SCH (14:17)
[2023-09-20] MEDS: methylPREDNISolone SOD SUCCI 40 MG/ML 1 ML VIAL IV SCH (14:17)
--- NOTE | 2023-09-20 14:19 | P.HPIM ---
History of Present Illness H&P Date: 09/20/23 Chief Complaint: Shortness of breath * 58-year-old patient with history of fibromyalgia, gastroesophageal reflux disease, chronic bronchial asthma presents to the emergency department with complaints of shortness of breath, patient states she took breathing treatments at home however with minimal relief, patient also complained of associated chest pain. Workup initiated in ER included EKG which showed sinus tachycardia, no significant ST segment changes. Further workup included CBC which showed WBC count of 15.2 hemoglobin 16 platelet count of 356 serum chemistry showed sodium 141 potassium 4.4 chloride 106 BUN 13 creatinine 0.93 magnesium of 2, liver profile within normal limits troponin within normal limits patient had D-dimer done which was elevated * CT chest was obtained which was negative for acute pulmonary process * Patient admitted to medical floor to be monitored for ACS as well as acute asthma exacerbation REVIEW OF SYSTEMS: Chest pain, shortness of breath CONSTITUTIONAL: No fever, no malaise, no fatigue. HEENT: No recent visual problems or hearing problems. Denied any sore throat. CARDIOVASCULAR: Chest pain, shortness of breath PULMONARY: Chest pain, shortness of breath GASTROINTESTINAL: No diarrhea, no nausea, no vomiting, no abdominal pain. NEUROLOGICAL: No headaches, no weakness, no numbness. HEMATOLOGICAL: Denies any bleeding or petechiae. GENITOURINARY: Denies any burning micturition, frequency, or urgency. MUSCULOSKELETAL/RHEUMATOLOGICAL: Denies any joint pain, swelling, or any muscle pain. ENDOCRINE: Denies any polyuria or polydipsia. PHYSICAL EXAMINATION: GENERAL: The patient is alert and oriented x3, not in any acute distress. Well developed, well nourished. Nasal cannula HEENT: Pupils are round and equally reacting to light. EOMI. CARDIOVASCULAR: S1 and S2 present tachycardia PULMONARY: Chest is clear to auscultation, no wheezing or crackles. ABDOMEN: Soft, nontender, nondistended, normoactive bowel sounds. No palpable organomegaly. MUSCULOSKELETAL: No joint swelling or deformity. EXTREMITIES: No cyanosis, clubbing, or pedal edema. NEUROLOGICAL: Gross neurological examination did not reveal any focal deficits. SKIN: No rashes. Past Medical History Past Medical History: Asthma Additional Past Medical History / Comment(s): HX HIATAL HERNIA. FREQUENT NAUSEA POST COVID MAY 2021. HYPOGLYCEMIA. fibromygia History of Any Multi-Drug Resistant Organisms: None Reported Past Surgical History: Cholecystectomy Additional Past Surgical History / Comment(s): REPAIR RT HAND INJURY. CYSTS REMOVED FROM OVARIES Past Anesthesia/Blood Transfusion Reactions: Postoperative Nausea & Vomiting (PONV) Additional Past Anesthesia/Blood Transfusion Reaction / Comment(s): SLOW TO WAKE UP Past Psychological History: Anxiety Smoking Status: Never smoker - Past Family History Mother Family Medical History: No Reported History Medications and Allergies Home Medications Medication Instructions Recorded Confirmed Type Baclofen 10 mg PO TID PRN 05/24/21 09/20/23 History DULoxetine HCL [Cymbalta] 60 mg PO DAILY 05/24/21 09/20/23 History Gabapentin [Neurontin] 300 mg PO BID@0700,1300 05/24/21 09/20/23 History Norethindrone [Marielena] 0.35 mg PO DAILY 05/24/21 09/20/23 History Zolpidem Tartrate [Ambien] 10 mg PO HS PRN 05/24/21 09/20/23 History traMADol HCL 100 mg PO BID PRN 05/24/21 09/20/23 History Albuterol Sulfate [Proair Hfa] 2 puff INHALATION RT-Q4H PRN 03/27/22 09/20/23 History Cholecalciferol (Vitamin D3) 125 mcg PO DAILY 03/27/22 09/20/23 History [Vitamin D3 (125 MCG = 5,000 IU)] Magnesium Oxide [Magnesium] 500 mg PO DAILY 03/27/22 09/20/23 History Montelukast [Singulair] 10 mg PO HS 03/27/22 09/20/23 History Ondansetron Odt [Zofran Odt] 4 mg PO Q8HR PRN #15 tab 03/27/22 09/20/23 Rx Zinc 50 mg PO DAILY 03/27/22 09/20/23 History rOPINIRole HCL [Requip] 2 mg PO TID 03/27/22 09/20/23 History Celecoxib [CeleBREX] 200 mg PO DAILY 09/20/23 09/20/23 History Gabapentin 900 mg PO HS 09/20/23 09/20/23 History Metoprolol Succinate [Metoprolol 25 mg PO DAILY 09/20/23 09/20/23 History Succinate ER] Olopatadine HCl [Patanol 0.1%] 1 drop BOTH EYES BID PRN 09/20/23 09/20/23 History Rizatriptan Odt [Maxalt Instrument/Control Technician] 10 mg PO BID PRN 09/20/23 09/20/23 History polyethylene glycoL 3350 [Miralax] 17 gm PO DAILY PRN 09/20/23 09/20/23 History Allergies Allergy/AdvReac Type Severity Reaction Status Date / Time codeine AdvReac Rash/Hives Verified 09/20/23 13:15 Penicillins AdvReac Rash/Hives Verified 09/20/23 13:15 Physical Exam Vitals: Vital Signs Temp Pulse Resp BP Pulse Ox 09/20/23 11:30 101 H 20 150/87 100 09/20/23 11:00 112 H 22 144/91 99 09/20/23 10:39 22 09/20/23 10:30 101 H 22 141/81 97 09/20/23 10:00 108 H 22 156/92 98 09/20/23 09:42 98 F 140 H 24 143/90 100 Intake and Output 09/19/23 09/20/23 09/20/23 22:59 06:59 14:59 Other: Weight 90.718 kg Results CBC & Chem 7: 09/20/23 10:13 09/20/23 10:13 Labs: Abnormal Lab Results - Last 24 Hours (Table) 09/20/23 09/20/23 09/20/23 Range/Units 10:13 10:13 10:13 WBC 15.2 H (3.8-10.6) k/uL RBC 5.43 H (3.80-5.40) m/uL Hct 47.3 H (34.0-46.0) % Neutrophils # 13.0 H (1.3-7.7) k/uL D-Dimer 0.81 H (<0.60) mg/L FEU Glucose 109 H (74-99) mg/dL Calcium 10.6 H (8.4-10.2) mg/dL AST 37 H (14-36) U/L Total Protein 8.3 H (6.3-8.2) g/dL Assessment and Plan Assessment: Assessment and plan * Acute asthma exacerbation * Chest pain rule out ACS * History of fibromyalgia * History of gastroesophageal reflux disease * In regards to acute asthma exacerbation, continue azithromycin, continue Mucinex continue IV Solu-Medrol breathing treatments as indicated * In regards to chest pain, rule out ACS patient noted to have tachycardia, CT chest negative for pulm embolism continue with fluid resuscitation * In regards to history of fibromyalgia Home medication reviewed and reconciled * In regards to history of gastroesophageal reflux disease continue patient on PPI * CODE STATUS is full code Time with Patient: Greater than 30
[2023-09-20] MEDS: DULoxetine HCL 60 MG CAPSULE.DR PO SCH (15:45)
[2023-09-20] MEDS: guaiFENesin 600 MG TABLET.ER PO SCH ×2 (15:45→20:12)
[2023-09-20] MEDS ORDERED: GABAPENTIN 300 MG CAP PO SCH (21:00)
[2023-09-20] MEDS ORDERED: MONTELUKAST 10 MG TAB PO SCH (21:00)
[2023-09-21] MEDS: SODIUM CHLORIDE 0.45% 1,000 ML IV SCH (05:23)
[2023-09-21] MEDS: GABAPENTIN 300 MG CAP PO SCH ×2 (06:22→12:46)
[2023-09-21] MEDS ORDERED: CHOLECALCIFEROL 125 MCG (5000 IU) TABLET PO SCH (09:00)
[2023-09-21] MEDS ORDERED: ZINC SULFATE 220 MG CAP PO SCH (09:00)
[2023-09-21] MEDS ORDERED: ASPIRIN 325 MG TAB PO SCH (09:00)
[2023-09-21] MEDS ORDERED: MELOXICAM 7.5 MG TAB PO SCH (09:00)
[2023-09-21] MEDS ORDERED: MAGNESIUM OXIDE 400 MG TAB PO SCH (09:00)
[2023-09-21 09:16] LABS: Chol/HDL Ratio 2.31 Ratio; LDL Cholesterol,Calculated 83.1 mg/dL (0.0-131.0); VLDL Calculation 11.08 mg/dL (5.00-40.00)
--- NOTE | 2023-09-21 10:11 | P.CRDCN ---
History of Present Illness History of present illness: HISTORY OF PRESENT ILLNESS: This is a 58-year-old female with a past medical history significant for asthma, PVCs, fibromyalgia, and anxiety. Patient follows in the office with Dr. Sargent. We have been asked to see the patient in consultation for chest pain and palpitations. Patient examined at the bedside. Patient states she has been feeling short of breath over the past couple days. She reports there is a lot of dust at work and she thought that this was triggering her asthma. She reports she has been using her nebulizer machine at night but her shortness of breath has not improved with treatments. She also reports feeling increased palpitations, especially after her breathing treatments. She also reports having some mild discomfort by her collarbone and both sides of her jaw. At the time of examination this morning, she denies chest pain or pressure. She denies shortness of breath. She is a non-smoker. She denies any alcohol use. She states that her dad has a history of CAD and was diagnosed when he was in his 60s. DIAGNOSTICS: - EKG reveals sinus mechanism with frequent PVCs - Chest xray negative for acute process - Chest CTA: Negative for pulmonary embolism - Laboratory data: WBC 15.2. Hemoglobin 16.0. Platelet count 356. D-dimer 0.81. Sodium 141. Potassium 4.4. BUN 13. Creatinine 0.93. Lactic acid 1.1. Magnesium 2.0. Troponin negative x 3. TSH 1.900. - Current home cardiac medications include metoprolol succinate 25 mg daily - Most recent echocardiogram obtained in August 2022 revealed ejection fraction 55%, trace MR, mild MR - Cardiac catheterization history: May 2023 revealing fair exercise tolerance. No symptoms typical of angina. Dysrhythmias in the form of frequent premature ventricular contractions. Nondiagnostic electrocardiographic stress test secondary to baseline EKG abnormalities. REVIEW OF SYSTEMS: At the time of my exam: CONSTITUTIONAL: Denies fever or chills. HEENT: Denies blurred vision, vision changes, or eye pain. Denies hemoptysis CARDIOVASCULAR: Denies chest pain. Denies orthopnea. Denies PND. Reports palpitations RESPIRATORY: Reports shortness of breath. GASTROINTESTINAL: Denies abdominal pain. Denies nausea or vomiting. HEMATOLOGIC: Denies bleeding disorders. GENITOURINARY: Denies any blood in urine. SKIN: Denies pruitis. Denies rash. PHYSICAL EXAM: VITAL SIGNS: Reviewed. GENERAL: Well-developed in no acute distress. HEENT: Head is normocephalic. Pupils are equal, round. Sclerae anicteric. Mucous membranes of the mouth are moist. Neck supple. No JVD or thyromegaly LUNGS: Respirations even and unlabored. Lungs essentially clear to auscultation bilaterally. HEART: Regular rate and rhythm. S1 and S2 heard. ABDOMEN: Soft. Nondistended. Nontender. EXTREMITIES: Normal range of motion. No clubbing or cyanosis. Peripheral pulses intact. No lower extremity edema NEUROLOGIC: Awake and alert. Oriented x 3. ASSESSMENT: Shortness of breath with jaw pain; rule out anginal equivalent Possible mild asthma exacerbation Palpitations with frequent PVCs History of fibromyalgia History of anxiety PLAN: An acute coronary event has been ruled out TSH checked and within normal limits Obtain 2D echo to assess cardiac structure and function Patient to undergo Cardiolite stress test today If negative, she may be discharged home from a cardiac standpoint Patient will receive a 48-hour Holter monitor from the cardiology office postdischarge to assess for PVC burden. If PVC burden is high, patient may require EP evaluation Further recommendations pending patient course Nurse practitioner note has been reviewed by physician. Signing provider agrees with the documented findings, assessment, and plan of care documented by SHERIFFS as a scribe. Past Medical History Past Medical History: Asthma Additional Past Medical History / Comment(s): HX HIATAL HERNIA. FREQUENT NAUSEA POST COVID MAY 2021. HYPOGLYCEMIA. fibromygia History of Any Multi-Drug Resistant Organisms: None Reported Past Surgical History: Cholecystectomy Additional Past Surgical History / Comment(s): REPAIR RT HAND INJURY. CYSTS REMOVED FROM OVARIES Past Anesthesia/Blood Transfusion Reactions: Postoperative Nausea & Vomiting (PONV) Additional Past Anesthesia/Blood Transfusion Reaction / Comment(s): SLOW TO WAKE UP Past Psychological History: Anxiety Smoking Status: Never smoker - Past Family History Mother Family Medical History: No Reported History Medications and Allergies Home Medications Medication Instructions Recorded Confirmed Type Baclofen 10 mg PO TID PRN 05/24/21 09/20/23 History DULoxetine HCL [Cymbalta] 60 mg PO DAILY 05/24/21 09/20/23 History Gabapentin [Neurontin] 300 mg PO BID@0700,1300 05/24/21 09/20/23 History Norethindrone [Marielena] 0.35 mg PO DAILY 05/24/21 09/20/23 History Zolpidem Tartrate [Ambien] 10 mg PO HS PRN 05/24/21 09/20/23 History traMADol HCL 100 mg PO BID PRN 05/24/21 09/20/23 History Albuterol Sulfate [Proair Hfa] 2 puff INHALATION RT-Q4H PRN 03/27/22 09/20/23 History Cholecalciferol (Vitamin D3) 125 mcg PO DAILY 03/27/22 09/20/23 History [Vitamin D3 (125 MCG = 5,000 IU)] Magnesium Oxide [Magnesium] 500 mg PO DAILY 03/27/22 09/20/23 History Montelukast [Singulair] 10 mg PO HS 03/27/22 09/20/23 History Ondansetron Odt [Zofran Odt] 4 mg PO Q8HR PRN #15 tab 03/27/22 09/20/23 Rx Zinc 50 mg PO DAILY 03/27/22 09/20/23 History rOPINIRole HCL [Requip] 2 mg PO TID 03/27/22 09/20/23 History Celecoxib [CeleBREX] 200 mg PO DAILY 09/20/23 09/20/23 History Gabapentin 900 mg PO HS 09/20/23 09/20/23 History Metoprolol Succinate [Metoprolol 25 mg PO DAILY 09/20/23 09/20/23 History Succinate ER] Olopatadine HCl [Patanol 0.1%] 1 drop BOTH EYES BID PRN 09/20/23 09/20/23 Histo ry Rizatriptan Odt [Maxalt Dust Brush Assembler] 10 mg PO BID PRN 09/20/23 09/20/23 History polyethylene glycoL 3350 [Miralax] 17 gm PO DAILY PRN 09/20/23 09/20/23 History Allergies Allergy/AdvReac Type Severity Reaction Status Date / Time codeine AdvReac Rash/Hives Verified 09/20/23 13:15 Penicillins AdvReac Rash/Hives Verified 09/20/23 13:15 Physical Exam Vitals: Vital Signs Temp Pulse Pulse Resp BP BP Pulse Ox 09/21/23 08:31 97 09/21/23 07:00 98.0 F 111 H 16 108/63 98 09/21/23 02:41 97.6 F 87 16 142/69 99 09/21/23 02:00 68 09/20/23 20:51 68 09/20/23 19:27 98.1 F 68 15 130/80 98 09/20/23 15:00 98.5 F 98 16 154/75 99 09/20/23 14:29 101 H 16 151/85 97 09/20/23 11:30 101 H 20 150/87 100 09/20/23 11:00 112 H 22 144/91 99 09/20/23 10:39 22 09/20/23 10:30 101 H 22 141/81 97 09/20/23 10:00 108 H 22 156/92 98 Intake and Output 09/20/23 09/21/23 09/21/23 22:59 06:59 14:59 Other: # Voids 2 1 Results 09/20/23 10:13 09/20/23 10:13 Cardiac Enzymes 09/20/23 09/20/23 09/20/23 Range/Units 10:13 10:13 15:09 AST 37 H (14-36) U/L Troponin I <0.012 <0.012 (0.000-0.034) ng/mL 09/20/23 Range/Units 16:56 AST (14-36) U/L Troponin I <0.012 (0.000-0.034) ng/mL Coagulation 09/20/23 Range/Units 10:13 PT 10.0 (10.0-12.5) sec APTT 23.4 (22.0-30.0) sec Lipids 09/21/23 Range/Units 05:26 Triglycerides 55.40 (0.00-149.00) mg/dL Cholesterol 166.00 (0.00-200.00) mg/dL HDL Cholesterol 71.80 H (40.00-60.00) mg/dL Cholesterol/HDL Ratio 2.31 Ratio CBC 09/20/23 Range/Units 10:13 WBC 15.2 H (3.8-10.6) k/uL RBC 5.43 H (3.80-5.40) m/uL Hgb 16.0 (11.4-16.0) gm/dL Hct 47.3 H (34.0-46.0) % Plt Count 356 (150-450) k/uL Comprehensive Metabolic Panel 09/20/23 Range/Units 10:13 Sodium 141 (137-145) mmol/L Potassium 4.4 (3.5-5.1) mmol/L Chloride 106 (98-107) mmol/L Carbon Dioxide 22 (22-30) mmol/L BUN 13 (7-17) mg/dL Creatinine 0.93 (0.52-1.04) mg/dL Glucose 109 H (74-99) mg/dL Calcium 10.6 H (8.4-10.2) mg/dL AST 37 H (14-36) U/L ALT 29 (4-34) U/L Alkaline Phosphatase 125 (38-126) U/L Total Protein 8.3 H (6.3-8.2) g/dL Albumin 4.8 (3.5-5.0) g/dL Current Medications Generic Name Dose Route Start Last Admin Trade Name Freq PRN Reason Stop Dose Admin Acetaminophen 650 mg 09/20/23 13:32 09/20/23 21:13 Acetaminophen Tab 325 Mg Tab PO 650 mg Q6HR PRN Administration Mild Pain (Scale 1 to 3) Albuterol Sulfate 2.5 mg 09/20/23 13:32 Albuterol Nebulized 2.5 Mg/3 Ml INHALATION RT-Q2H PRN Difficulty Breathing Azithromycin 500 mg 09/20/23 14:00 09/20/23 14:17 Azithromycin 500 Mg Tab PO 09/22/23 09:01 500 mg DAILY BEAU Administration Protocol Baclofen 10 mg 09/20/23 13:30 Baclofen 10 Mg Tab PO TID PRN Muscle Pain Benzonatate 100 mg 09/20/23 13:32 Benzonatate 100 Mg Cap PO TID PRN Cough Cholecalciferol 125 mcg 09/21/23 09:00 Cholecalciferol 125 Mcg (5000 Iu) Tablet PO DAILY BEAU Duloxetine HCl 60 mg 09/20/23 13:45 09/20/23 15:45 Duloxetine Hcl 60 Mg Capsule.Dr PO 60 mg DAILY BEAU Administration Gabapentin 900 mg 09/20/23 21:00 09/20/23 20:51 Gabapentin 300 Mg Cap PO 900 mg HS BEAU Administration Gabapentin 300 mg 09/21/23 07:00 09/21/23 06:22 Gabapentin 300 Mg Cap PO 300 mg BID@0700,1300 BEAU Administration Guaifenesin 600 mg 09/20/23 14:00 09/20/23 20:12 Guaifenesin 600 Mg Tablet.Er PO Not Given Q12HR [facility] Sodium Chloride 1,000 mls @ 75 mls/hr 09/20/23 13:45 09/21/23 05:23 Saline 0.45% IV Not Given .[id number] [facility] Ketotifen Fumarate 1 drops 09/20/23 13:30 Ketotifen 0.025% Ophth Drops 5 Ml Btl BOTH EYES BID PRN Allergy Symptoms Magnesium Oxide 400 mg 09/21/23 09:00 Magnesium Oxide 400 Mg Tab PO DAILY [facility] Meloxicam 7.5 mg 09/21/23 09:00 Meloxicam 7.5 Mg Tab PO DAILY [facility] Methylprednisolone Sodium Succinate 40 mg 09/20/23 14:00 09/20/23 14:17 Methylprednisolone Sod Succi 40 Mg/Ml 1 Ml Vial IV 40 mg DAILY [facility] Administration Metoprolol Succinate 25 mg 09/20/23 14:00 09/20/23 14:17 Metoprolol Succinate (Er) 25 Mg Tab.Er.24h PO 25 mg DAILY [facility] Administration Montelukast Sodium 10 mg 09/20/23 21:00 09/20/23 20:51 Montelukast 10 Mg Tab PO 10 mg HS [facility] Administration Naloxone HCl 0.2 mg 09/20/23 13:32 Naloxone 0.4 Mg/Ml 1 Ml Vial IVP Q2M PRN Opioid Reversal Nitroglycerin 0.4 mg 09/20/23 12:50 Nitroglycerin Sl Tabs 0.4 Mg Tab SUBLINGUAL Q5M PRN Chest Pain Ondansetron HCl 4 mg 09/20/23 13:30 Ondansetron Odt 4 Mg Tab PO Q8HR PRN Nausea And Vomiting Pantoprazole Sodium 40 mg 09/20/23 14:00 09/20/23 14:15 Pantoprazole 40 Mg/10 Ml Vial IVP 40 mg DAILY [facility] Administration Polyethylene Glycol 17 gm 09/20/23 13:30 Polyethylene Glycol 3350 17 Gm Powd.Pack PO DAILY PRN Constipation Ropinirole HCl 2 mg 09/20/23 16:00 09/20/23 21:13 Ropinirole Hcl 1 Mg Tab PO 2 mg TID [facility] Administration Sumatriptan Succinate 100 mg 09/20/23 13:30 Sumatriptan Succinate 50 Mg Tab PO BID PRN Migraine Headache Tramadol HCl 100 mg 09/20/23 13:30 09/20/23 14:27 Tramadol 50 Mg Tab PO 100 mg BID PRN Administration Pain Zinc Sulfate 220 mg 09/21/23 09:00 Zinc Sulfate 220 Mg Cap PO DAILY [facility] Zolpidem Tartrate 10 mg 09/20/23 13:30 Zolpidem 5 Mg Tab PO HS PRN Insomnia Intake and Output 09/20/23 09/21/23 09/21/23 22:59 06:59 14:59 Other: # Voids 2 1 09/20/23 10:13 09/20/23 10:13
[2023-09-21] MEDS: AZITHROMYCIN 500 MG TAB PO SCH (12:43)
[2023-09-21] MEDS: DULoxetine HCL 60 MG CAPSULE.DR PO SCH (12:44)
[2023-09-21] MEDS: guaiFENesin 600 MG TABLET.ER PO SCH (12:44)
[2023-09-21] MEDS: methylPREDNISolone SOD SUCCI 40 MG/ML 1 ML VIAL IV SCH (12:44)
[2023-09-21] MEDS: METOPROLOL SUCCINATE (ER) 25 MG TAB.ER.24H PO SCH (12:44)
[2023-09-21] MEDS: PANTOPRAZOLE 40 MG/10 ML VIAL IVP SCH (12:44)
--- NOTE | 2023-09-21 12:54 | NM ---
EXAMINATION TYPE: NM stress cardiolite complete DATE OF EXAM: 09/21/2023 COMPARISON: NONE CLINICAL INDICATION: Female, 58 years old with history of CP, SOB; TECHNIQUE: After the intravenous administration of 10.2 mCi Tc 99m Sestamibi - Rest images obtained 45 minutes post injection. The patient exercised using a JOSE MARTIN protocol and 1 minute prior to peak exercise was injected with 24.6 mCi Tc 99m Sestamibi - Stress images obtained 55 minutes post injecti on. FINDINGS: Targeted heart rate was achieved during performance of the study. Review of stress and rest SPECT ibrahima ges demonstrates no distinct perfusion abnormality. Gated analysis shows normal wall motion with an estimated left ventricular ejection fraction of 29 %. IMPRESSION: No scintigraphic evidence for reversible ischemia
--- NOTE | 2023-09-21 13:23 | P.PN ---
Subjective Progress Note Date: 09/21/23 * 58-year-old patient with history of fibromyalgia, gastroesophageal reflux disease, chronic bronchial asthma presents to the emergency department with complaints of shortness of breath, patient states she took breathing treatments at home however with minimal relief, patient also complained of associated chest pain. Workup initiated in ER included EKG which showed sinus tachycardia, no significant ST segment changes. Further workup included CBC which showed WBC count of 15.2 hemoglobin 16 platelet count of 356 serum chemistry showed sodium 141 potassium 4.4 chloride 106 BUN 13 creatinine 0.93 magnesium of 2, liver profile within normal limits troponin within normal limits patient had D-dimer done which was elevated * CT chest was obtained which was negative for acute pulmonary process * Patient admitted to medical floor to be monitored for ACS as well as acute asthma exacerbation * 09/21/2023: Patient seen and evaluated bedside, patient completed stress test, serial troponins obtained which are negative, lipid profile shows HDL of 71 LDL of 83 total cholesterol 166 triglyceride 55 TSH within normal limits * Patient completed stress test which showed no evidence of ischemia, echocardiogram completed patient will need an event monitor prior to discharge REVIEW OF SYSTEMS: Chest pain, shortness of breath improved CONSTITUTIONAL: No fever, no malaise, no fatigue. HEENT: No recent visual problems or hearing problems. Denied any sore throat. CARDIOVASCULAR: Chest pain, shortness of breath improved PULMONARY: Chest pain, shortness of breath improved GASTROINTESTINAL: No diarrhea, no nausea, no vomiting, no abdominal pain. NEUROLOGICAL: No headaches, no weakness, no numbness. HEMATOLOGICAL: Denies any bleeding or petechiae. GENITOURINARY: Denies any burning micturition, frequency, or urgency. MUSCULOSKELETAL/RHEUMATOLOGICAL: Denies any joint pain, swelling, or any muscle pain. ENDOCRINE: Denies any polyuria or polydipsia. PHYSICAL EXAMINATION: GENERAL: The patient is alert and oriented x3, not in any acute distress. Well developed, well nourished. Nasal cannula removed HEENT: Pupils are round and equally reacting to light. EOMI. CARDIOVASCULAR: S1 and S2 present tachycardia PULMONARY: Chest is clear to auscultation, no wheezing or crackles. ABDOMEN: Soft, nontender, nondistended, normoactive bowel sounds. No palpable organomegaly. MUSCULOSKELETAL: No joint swelling or deformity. EXTREMITIES: No cyanosis, clubbing, or pedal edema. NEUROLOGICAL: Gross neurological examination did not reveal any focal deficits. SKIN: No rashes. Assessment and plan * Acute asthma exacerbation * Chest pain ruled out ACS * History of fibromyalgia * History of gastroesophageal reflux disease * In regards to acute asthma exacerbation, continue azithromycin complete total 5-day course, continue Mucinex, received IV Solu-Medrol breathing treatments as indicated, upon discharge transition to prednisone, * In regards to chest pain, rule out ACS patient noted to have tachycardia, CT chest negative for pulm embolism, appropriately resuscitated with fluids. * In regards to history of fibromyalgia Home medication reviewed and reconciled * In regards to history of gastroesophageal reflux disease continue patient on PPI * CODE STATUS is full code Objective - Vital Signs Vital signs: Vital Signs Temp 98.0 F 09/21/23 07:00 Pulse 111 H 09/21/23 07:00 Resp 16 09/21/23 07:00 BP 108/63 09/21/23 07:00 Pulse Ox 97 09/21/23 08:31 FiO2 Intake & Output 09/20/23 09/21/23 09/21/23 18:59 06:59 18:59 Weight 90.718 kg Other: # Voids 1 1 - Labs CBC & Chem 7: 09/20/23 10:13 09/20/23 10:13 Labs: Abnormal Lab Results - Last 24 Hours (Table) 09/21/23 Range/Units 05:26 HDL Cholesterol 71.80 H (40.00-60.00) mg/dL
--- NOTE | 2023-09-21 13:55 | CA ---
Exercise Nuclear Stress Test Report Name: Jeannette Allen Exam Date: 09/21/2023 11:19 Exam Location: [place] Stress Ht (in): 67 Wt (lb): 200 BSA: 2.02 Ordering Phys: Emiliana Mercedes Referring Phys: KADE,, Technologist: SLIME CHACON Age: 58 Gender: F : 1965 Procedure CPT: Indications: Reflex order-Stress test ICD-10 Codes: Patient History: Medications: SEE CHART Meds past 24 hrs: Pretest Chest Pain: STRESS TEST Sebas Protocol Exercise Duration (min:sec): 04:[address] Depressions (mm): Angina Score: Sosa Score: Resting HR (bpm): 101 Peak HR (bpm): 177 Resting BP (mmHg): 129 / 77 Peak BP (mmHg): 181 / 79 MPHR: 163 Target HR: 139 % MPHR: 109 METS: 6.8 Total Dose: Peak Dose: Atropine: Double Product: 78939 BP Response: Stress Termination: Reached target heart rate Stress Symptoms: NO SYMPTOMS Stress Summary: ECG ANALYSIS Resting ECG: Normal sinus rhythm, normal ECG Stress ECG: No significant ST-T wave changes diagnostic for ischemia by ST segment analysis. There were occasional monomorphic PVCs noticed during the early part of treadmill. She did not have any PVCs during mid or peak stress level. She did not have any PVCs during recovery. There were no sustained arrhythmias CONCLUSIONS Poor exercise tolerance for age achieving only 6.8 METS Nonischemic ECG response of treadmill exercise Normal hemodynamic and clinical response to exercise. No sustained arrhythmias or increased PVC burden with exercise Please refer to the nuclear portion of the stress test for the complete interpretation of this study Dr Ivan Vargas (Electronically Signed) Final Date: 21 September 2023 13:54
[2023-09-21 14:38] VITALS: BP 133/78; PULSE 87; RESP 14; TEMP 97.7
--- NOTE | 2023-09-21 18:33 | CA ---
Transthoracic Echo Report Name: Jeannette Allen Age: 58 Gender: F : 1965 Exam Date: 09/21/2023 11:20 Exam Location: [place] Echo Ht (in): 67 Wt (lb): 200 Ordering Physician: Reji Alexander DO Attending/Referring Phys: Herminia Shaw DO Compensation Administrator Roque Lyle RDCS Procedure CPT: Indications: CP, SOB, LV function Cardiac Hx: Technical Quality: Technically difficult study Contrast 1: Total Dose (mL): Contrast 2: Total Dose (mL): MEASUREMENTS (Male / Female) Normal Values 2D ECHO LV Diastolic Diameter PLAX 4.9 cm 4.2 - 5.9 / 3.9 - 5.3 cm LV Systolic Diameter PLAX 4.0 cm IVS Diastolic Thickness 0.9 cm 0.6 - 1.0 / 0.6 - 0.9 cm LVPW Diastolic Thickness 0.5 cm 0.6 - 1.0 / 0.6 - 0.9 cm LV Relative Wall Thickness 0.3 Aortic Root Diameter 2.4 cm LA Systolic Diameter LX 4.1 cm 3.0 - 4.0 / 2.7 - 3.8 cm DOPPLER AV Peak Velocity 130.4 cm/s AV Peak Gradient 6.8 mmHg AV Mean Velocity 90.7 cm/s AV Mean Gradient 3.7 mmHg AV Velocity Time Integral 22.6 cm LVOT Peak Velocity 61.4 cm/s LVOT Peak Gradient 1.5 mmHg LVOT Velocity Time Integral 12.7 cm Mitral E Point Velocity 78.4 cm/s Mitral A Point Velocity 87.7 cm/s Mitral E to A Ratio 0.9 MV Deceleration Time 134.0 ms MV E' Velocity 9.7 cm/s Mitral E to MV E' Ratio 8.1 FINDINGS Left Ventricle Left ventricular ejection fraction is estimated at 50-55%. Normal Left ventricular size, wall thickness, systolic function with no obvious regional wall motion abnormalities. Normal Left ventricular diastolic filling pattern. Right Ventricle Normal right ventricular size and function. Right Atrium Normal right atrial size. Left Atrium Mildly increased left atrial diameter. Mitral Valve Structurally normal mitral valve. Aortic Valve No aortic valve stenosis or regurgitation. Tricuspid Valve Structurally normal tricuspid valve. Pulmonic Valve Structurally normal pulmonic valve. Pericardium Normal pericardium. Aorta Normal size aortic root and proximal ascending aorta. CONCLUSIONS Technically difficult study. LVEF 50-55% No obvious regional wall motion abnormality Mild left atrial dilatation No significant valvular dysfunction Previewed by: Dr Ivan Vargas (Electronically Signed) Final Date: 21 September 2023 18:32
== END 2023-09-21 15:33 | disposition home or self-care (01) ==
LOC: EC 09:40 → 6NMEDSUR 12:52
PROVIDERS: ADMIT Internal Medicine; ATTEND Internal Medicine
DX: J45.901 Unspecified asthma with (acute) exacerbation (principal); R07.89 Other chest pain; I49.3 Ventricular premature depolarization; I34.0 Nonrheumatic mitral (valve) insufficiency; R68.84 Jaw pain; M79.7 Fibromyalgia; K21.9 Gastro-esophageal reflux disease without esophagitis; F41.9 Anxiety disorder, unspecified; R79.89 Other specified abnormal findings of blood chemistry; Z79.1 Long term (current) use of non-steroidal anti-inflammatories (NSAID); Z79.51 Long term (current) use of inhaled steroids; Z79.899 Other long term (current) drug therapy; Z88.0 Allergy status to penicillin; Z88.5 Allergy status to narcotic agent; Z86.16 Personal history of COVID-19; Z82.49 Family history of ischemic heart disease and other diseases of the circulatory system
CPT/HCPCS: 96376; 96361 ×2; 96374; 96375; 99285; 36415; 94760; 93005; 93017; 93306; 85379; 80061; 80053; 83605; 83735; 84443; 84484; 85025; 85610; 85730; 87040; 71046; 71275; 78452; G0378 ×2; A9500; J2920 ×2; C9113 ×2; Q9967

== ENCOUNTER 2024-11-23 12:38 | Emergency (ER) | payer OTHER ==
--- NOTE | 2024-11-23 13:04 | ED ---
URI HPI - General Chief Complaint: Upper Respiratory Infection Stated Complaint: Asthma Time Seen by Provider: 11/23/24 12:54 Source: patient, RN notes reviewed Mode of arrival: wheelchair Limitations: no limitations - History of Present Illness MD Complaint: fever, cough, nasal congestion Onset/Timin -: days(s) Associated Symptoms: sore throat, shortness of breath Treatments Prior to Arrival: "cold medicine", other (Albuterol) - Related Data Home Medications Medication Instructions Recorded Confirmed Baclofen 10 mg PO TID PRN 05/24/21 09/20/23 DULoxetine HCL [Cymbalta] 60 mg PO DAILY 05/24/21 09/20/23 Gabapentin [Neurontin] 300 mg PO BID@0700,1300 05/24/21 09/20/23 Norethindrone [Marielena] 0.35 mg PO DAILY 05/24/21 09/20/23 Zolpidem Tartrate [Ambien] 10 mg PO HS PRN 05/24/21 09/20/23 traMADol HCL 100 mg PO BID PRN 05/24/21 09/20/23 Albuterol Sulfate [Proair Hfa] 2 puff INHALATION RT-Q4H PRN 03/27/22 09/20/23 Cholecalciferol (Vitamin D3) 125 mcg PO DAILY 03/27/22 09/20/23 [Vitamin D3 (125 MCG = 5,000 IU)] Magnesium Oxide [Magnesium] 500 mg PO DAILY 03/27/22 09/20/23 Montelukast [Singulair] 10 mg PO HS 03/27/22 09/20/23 Zinc 50 mg PO DAILY 03/27/22 09/20/23 rOPINIRole HCL [Requip] 2 mg PO TID 03/27/22 09/20/23 Celecoxib [CeleBREX] 200 mg PO DAILY 09/20/23 09/20/23 Gabapentin 900 mg PO HS 09/20/23 09/20/23 Metoprolol Succinate [Metoprolol 25 mg PO DAILY 09/20/23 09/20/23 Succinate ER] Olopatadine HCl [Patanol 0.1%] 1 drop BOTH EYES BID PRN 09/20/23 09/20/23 Rizatriptan Odt [Maxalt OPERA SINGER] 10 mg PO BID PRN 09/20/23 09/20/23 polyethylene glycoL 3350 [Miralax] 17 gm PO DAILY PRN 09/20/23 09/20/23 Previous Rx's Medication Instructions Recorded Ondansetron Odt [Zofran ODT] 4 mg PO Q8HR PRN #15 tab 03/27/22 Azithromycin [Zithromax] 500 mg PO DAILY 3 Days #3 tab 09/21/23 guaiFENesin [Mucinex] 600 mg PO Q12HR 5 Days #10 tab 09/21/23 predniSONE [Deltasone] 20 mg PO DAILY 3 Days #3 tab 09/21/23 predniSONE 50 mg PO DAILY #5 tab 11/23/24 Allergies Allergy/AdvReac Type Severity Reaction Status Date / Time codeine AdvReac Rash/Hives Verified 11/23/24 12:48 Penicillins AdvReac Rash/Hives Verified 11/23/24 12:48 Review of Systems ROS Statement: Those systems with pertinent positive or pertinent negative responses have been documented in the HPI. ROS Other: All systems not noted in ROS Statement are negative. Past Medical History Past Medical History: Asthma Additional Past Medical History / Comment(s): HX HIATAL HERNIA. FREQUENT NAUSEA POST COVID MAY 2021. HYPOGLYCEMIA. fibromygia History of Any Multi-Drug Resistant Organisms: None Reported Past Surgical History: Cholecystectomy Additional Past Surgical History / Comment(s): REPAIR RT HAND INJURY. CYSTS REMOVED FROM OVARIES Past Anesthesia/Blood Transfusion Reactions: Postoperative Nausea & Vomiting (PONV) Additional Past Anesthesia/Blood Transfusion Reaction / Comment(s): SLOW TO WAKE UP Past Psychological History: Anxiety Smoking Status: Never smoker Past Alcohol Use History: None Reported Past Drug Use History: None Reported - Past Family History Mother Family Medical History: No Reported History General Exam Limitations: no limitations General appearance: alert, in no apparent distress Head exam: Present: atraumatic, normocephalic, normal inspection Eye exam: Present: normal appearance, PERRL, EOMI. Absent: scleral icterus, conjunctival injection, periorbital swelling ENT exam: Present: normal oropharynx, mucous membranes dry, TM's normal bilaterally, other (Positive bilateral maxillary tenderness) Neck exam: Present: normal inspection. Absent: tenderness, meningismus, lymphadenopathy Respiratory exam: Present: wheezes, decreased breath sounds, prolonged expiratory. Absent: respiratory distress, rales, rhonchi, stridor, accessory muscle use Cardiovascular Exam: Present: regular rate, normal rhythm, normal heart sounds. Absent: systolic murmur, diastolic murmur, rubs, gallop, clicks GI/Abdominal exam: Present: soft, normal bowel sounds. Absent: distended, tenderness, guarding, rebound, rigid Extremities exam: Present: normal inspection, full ROM, normal capillary refill. Absent: tenderness, pedal edema, joint swelling, calf tenderness Back exam: Present: normal inspection Neurological exam: Present: alert, oriented X3, CN II-XII intact Psychiatric exam: Present: normal affect, normal mood Skin exam: Present: warm, dry, intact, normal color. Absent: rash Course Vital Signs 11/23/24 11/23/24 12:45 13:09 Temperature 100.8 F H 99.8 F H Pulse Rate 88 98 Respiratory 24 19 Rate Blood Pressure 152/92 144/77 O2 Sat by Pulse 100 99 Oximetry Medical Decision Making - Medical Decision Making Was pt. sent in by a medical professional or institution (, PA, WOOL HAT SANDING MACHINE OPERATOR, urgent care, hospital, or care home...) When possible be specific @ -[No] Did you speak to anyone other than the patient for history (EMS, parent, family, police, friend...)? What history was obtained from this source @ -[No] Did you review nursing and triage notes (agree or disagree)? Why? @ -[I reviewed and agree with nursing and triage notes] Were old charts reviewed (outside hosp., previous admission, EMS record, old EKG, old radiological studies, urgent care reports/EKG's, care home records)? Report findings @ -[No old charts were reviewed] Differential Diagnosis (chest pain, altered mental status, abdominal pain women, abdominal pain men, vaginal bleeding, weakness, fever, dyspnea, syncope, headache, dizziness, GI bleed, back pain, seizure, CVA, palpatations, mental health, musculoskeletal)? @ -Differential Fever: Pneumonia, viral URI, endocarditis, myocarditis, pericarditis, otitis, sinusitis, peritonsillar Abscess, retropharyngeal Abscess, epiglottitis, peritonitis, appendicitis, Evelyne cystitis, diverticulitis, hepatitis, colitis, UTI, PID, TOA, pyelonephritis, prostatitis, epididymitis, meningitis, encephalitis, pulmonary embolism, CVA, thyroid storm, pancreatitis, adrenal crisis, cavernous sinus thrombosis, this is not meant to be an all-inclusive list. EKG interpreted by me (3pts min.). @ -Not done X-rays interpreted by me (1pt min.). @ -[None done] CT interpreted by me (1pt min.). @ -[None done] U/S interpreted by me (1pt. min.). @ -[None done] What testing was considered but not performed or refused? (CT, X-rays, U/S, labs)? Why? @ -[None] What meds were considered but not given or refused? Why? @ -[None] Did you discuss the management of the patient with other professionals (professionals i.e. , PA, WOOL HAT SANDING MACHINE OPERATOR, lab, RT, psych nurse, social science teacher, line cleaner, teacher, traffic control officer, comp field case manager)? Give summary @ -[No] Was smoking cessation discussed for >3mins.? @ -[No] Was critical care preformed (if so, how long)? @ -[No] Were there social determinants of health that impacted care today? How? (Homelessness, low income, unemployed, alcoholism, drug addiction, transportation, low edu. Level, literacy, decrease access to med. care, long-term, rehab)? @ -[No] Was there de-escalation of care discussed even if they declined (Discuss DNR or withdrawal of care, Hospice)? DNR status @ -[No] What co-morbidities impacted this encounter? (DM, HTN, Smoking, COPD, CAD, Cancer, CVA, ARF, Chemo, Hep., AIDS, mental health diagnosis, sleep apnea, morbid obesity)? @ -[None] Was patient admitted / discharged? Hospital course, mention meds given and route, prescriptions, significant lab abnormalities, going to OR and other pertinent info. @ -[hospital course] Undiagnosed new problem with uncertain prognosis? @ -[No] Drug Therapy requiring intensive monitoring for toxicity (Heparin, Nitro, Insulin, Cardizem)? @ -[No] Were any procedures done? @ -[No] Diagnosis/symptom? @ -[default] Acute, or Chronic, or Acute on Chronic? @ -Acute Uncomplicated (without systemic symptoms) or Complicated (systemic symptoms)? @ -Complicated Side effects of treatment? @ -[No] Exacerbation, Progression, or Severe Exacerbation? @ -[No] Poses a threat to life or bodily function? How? (Chest pain, [place], [place], pneumonia, PE, COPD, DKA, ARF, appy, cholecystitis, CVA, Diverticulitis, Homicidal, Suicidal, threat to staff... and all critical care pts) @ -[No] - Lab Data Lab Results 11/23/24 Range/Units 13:14 Influenza Type A (PCR) Not Detected (Not Detectd) Influenza Type B (PCR) Not Detected (Not Detectd) RSV (PCR) Detected A (Not Detectd) SARS-CoV-2 (PCR) Not Detected (Not Detectd) Disposition Clinical Impression: RSV bronchitis, Upper respiratory tract infection Disposition: HOME SELF-CARE Condition: Good Instructions (If sedation given, give patient instructions): Asthma (ED) Additional Instructions: Use at home nebulizer once every 4-6 hours as needed. Follow-up with PCP in the next 24-48 hours. Prescriptions: predniSONE 50 mg PO DAILY #5 tab Is patient prescribed a controlled substance at d/c from ED?: No Referrals: Dot Cano DO [Primary Care Provider] - 1-2 days Time of Disposition: 14:00
--- NOTE | 2024-11-23 13:30 | XR ---
EXAMINATION TYPE: XR chest 2V DATE OF EXAM: 11/23/2024 1:25 PM COMPARISON: 09/20/2023 CLINICAL INDICATION: Female, 59 years old with history of SOB, cough, fever, TECHNIQUE: XR chest 2V view(s) obtained. FINDINGS: The heart size is normal. The pulmonary vasculature is normal. The lungs are clear. IMPRESSION: 1. No acute pulmonary process. [facility], , 11/23/2024 1:28 PM
[2024-11-23] MEDS: ACETAMINOPHEN TAB 500 MG TAB PO STA (13:35)
[2024-11-23] MEDS: IBUPROFEN 800 MG TAB PO STA (13:35)
[2024-11-23] MEDS: methylPREDNISolone SOD SUCCI 125 MG/2 ML VIAL IM ONE (13:36)
[2024-11-23 13:58] LABS: Influenza A Not Detected (Not Detectd); Influenza B Not Detected (Not Detectd); RSV Detected (Not Detectd)
[2024-11-23] MEDS: IPRATROPIUM-ALBUTEROL 3 ML NEB INHALATION STA (13:58)
[2024-11-23 14:46] VITALS: BP 132/74; PULSE 92; RESP 18; TEMP 98.9
== END 2024-11-23 14:46 | disposition home or self-care (01) ==
LOC: EC 12:38
DX: J20.5 Acute bronchitis due to respiratory syncytial virus (principal); Z88.5 Allergy status to narcotic agent; Z88.0 Allergy status to penicillin
CPT/HCPCS: 94640; 87636; 71046; 99285; 96372; J2919